=== PATIENT | male | born 1965 ===

== ENCOUNTER 2020-09-30 09:09 | Outpatient (REF) | payer OTHER, SELFPAY ==
--- NOTE | ~2020-09-30 | XR_ITS ---
EXAMINATION: XR LUMBOSACRAL SPINE CLINICAL INFORMATION: Low back pain COMPARISON: Previous x-ray March 2014 TECHNIQUE: Three views of the lumbosacral spine. FINDINGS: There are postsurgical changes at L5-S1 with interbody fusion at L5-S1 with fusion cage and 2 posterior screws in S1. Surgical hardware appears unchanged from March 2014. Bone alignment is normal. No fracture or dislocation is seen. There is mild degenerative spondylosis and disc space narrowing at L4-L5 and L2-L3. There is lower lumbar spine facet arthritis. XR/XR lumbar spine 2-3V IMPRESSION: Stable postsurgical change at L5-S1. Mild degenerative changes.
== END 2020-09-30 09:10 | disposition home or self-care (01) ==
LOC: HO.HMGCX 09:09
PROVIDERS: PCP Nurse Practitioner Family; Visit Provider Nurse Practitioner Family
DX: M54.5 Low back pain (principal)
CPT/HCPCS: 72100

== ENCOUNTER 2020-11-04 09:20 | Outpatient (REF) | payer OTHER, SELFPAY ==
[2020-11-04 12:02] LABS: Alanine Aminotransferase 26 U/L (0-40); Albumin Level 4.2 g/dL (3.5-5.0); Alkaline Phosphatase 90 U/L (39-117); Anion Gap 10 (12-20); Aspartate Amino Transferase 25 U/L (5-37); Bilirubin Total 0.2 mg/dL (0.0-1.0); Blood Urea Nitrogen 26 mg/dL (9-16); Calcium 8.8 mg/dL (8.4-10.2); Carbon Dioxide 26 mmol/L (22-29); Chloride 107 mmol/L (96-108); Cholesterol 191 mg/dL; Estimated Glomerular Filt Rate > 60; Glucose Fasting 121 mg/dL (60-99); HDL Cholesterol 47 mg/dL; LDL Cholesterol Calculated 114 mg/dl; Potassium 4.8 mmol/L (3.3-5.1); Sodium 138 mmol/L (135-145); Total Protein 6.8 g/dL (6.5-8.0); Triglycerides 151 mg/dL
[2020-11-04 12:06] LABS: Prostate Specific Antigen Scr 0.79 ng/mL (<0.05-4.0); TSH reflex Free T4 0.82 uIU/mL (0.32-4.0)
== END 2020-11-04 09:21 | disposition home or self-care (01) ==
LOC: HO.HMGCLDS 09:20
PROVIDERS: PCP Nurse Practitioner Family; Visit Provider Nurse Practitioner Family
DX: Z12.5 Encounter for screening for malignant neoplasm of prostate (principal); Z00.00 Encounter for general adult medical examination without abnormal findings
CPT/HCPCS: 36415; 80053; 80061; 84153; 84443

== ENCOUNTER 2020-12-17 08:38 | Outpatient (REF) | payer OTHER, SELFPAY ==
--- NOTE | ~2020-12-17 | XR_ITS ---
EXAMINATION: XR HIP, LEFT CLINICAL INFORMATION: Left hip pain. COMPARISON: None TECHNIQUE: Two views of the left hip. FINDINGS: There is no evidence of acute fracture or dislocation of the left hip. Left hip joint space is maintained without significant spurring identified. There is a region of diminished density present with question surrounding sclerotic region versus overlap of the acetabular bone which may be related to subchondral cyst formation. No femoral head collapse is identified. Early AVN not excluded. XR/XR hip LT min 2V IMPRESSION: No acute fracture or significant joint space narrowing appreciated. Findings of the femoral head which could be related to subchondral cyst formation or possible early AVN with no femoral head collapse identified.
== END 2020-12-17 08:39 | disposition home or self-care (01) ==
LOC: HO.XRAY 08:38
PROVIDERS: PCP Nurse Practitioner Family; Visit Provider Nurse Practitioner Family
DX: M25.552 Pain in left hip (principal)
CPT/HCPCS: 73502

== ENCOUNTER → 2021-01-04 13:05 | Outpatient (BNVA) | payer OTHER, SELFPAY | PROVIDERS: PCP Nurse Practitioner Family; Visit Provider Orthopaedic Surgery | DX: M87.052 Idiopathic aseptic necrosis of left femur (principal) | CPT/HCPCS: 99202 ==

== ENCOUNTER 2021-01-27 13:31 | Outpatient (REF) | payer OTHER, SELFPAY ==
--- NOTE | ~2021-01-27 | FL_ITS ---
EXAMINATION: FL ARTHROGRAM HIP, LEFT CLINICAL INFORMATION: Left hip pain. Pre-MRI. COMPARISON: Previous x-ray 12/17/2020. TECHNIQUE/FINDINGS: Procedure, risks and benefits including bleeding and infection were discussed with the patient and informed consent was obtained. The left hip was prepped and draped in the usual sterile fashion. The skin and soft tissues were anesthetized with 1% lidocaine plain. Using fluoroscopy guidance and a 22-gauge spinal needle, access to the left hip joint was obtained. 1 to 2 mL of Omnipaque 300 was injected fluoroscopically confirming adequate placement in the joint space. Subsequently, a mixture of dilute gadolinium, saline and lidocaine was injected pre-MRI. FLUOROSCOPY TIME: 0.4 minutes DOSE AREA PRODUCT: 2.8 mGy-cm2 IMAGES SAVED: 3 saved fluoroscopic images FL/FL arthrogram hip LT IMPRESSION: Left hip pre-MRI arthrogram.
--- NOTE | ~2021-01-27 | MR_ITS ---
EXAMINATION: MR HIP WITH CONTRAST, LEFT CLINICAL INFORMATION: Left hip pain. Avascular necrosis. Evaluate for labrum tear. COMPARISON: Radiographs of the hip from 12/17/2020. TECHNIQUE: MRI of the left hip was performed after the intra-articular administration of a dilute gadolinium-containing solution on a high-field 1.5 Evelin scanner. FINDINGS: BONES/JOINTS: The acetabulum, which has normal depth and orientation, provides normal femoral head coverage. The center-edge angle of [place] is 37 degrees (normal 20 - 45 degrees). At the level of the acetabular roof, acetabular anteversion angle measures 8 degrees, and at the level of the center of the femoral head, acetabular anteversion is 17 degrees. No acetabular retroversion. The femoral head and neck have normal shape (i.e., no cam type morphology). The alpha angle is 45 degrees (normal typically < 60 degrees). Minimal osteophyte formation of the hip. Minimal subchondral cystlike signal change and subtle subchondral edema of the superolateral acetabulum. Irregular thinning of articular cartilage of the anterosuperomedial aspect of the femoral head. There is T2 signal hyperintensity from likely fibrovascular tissue and subchondral cystic change in the anterosuperomedial femoral head, in the area of osteonecrosis, which is demarcated by a hypointense line. The area of osteonecrosis measures up to 2.2 cm AP and 2 cm transverse. No fragmentation or collapse of the articular surface. No intra-articular osteochondral body. ACETABULAR LABRUM and CAPSULE: The acetabular labrum has normal size, morphology and signal. The ligamentum teres femoris is intact. The capsular structures are unremarkable. No pericapsular fluid collection or ganglion cyst. MUSCLES/TENDONS: The gluteus minimus and medius tendons have intact insertions on the greater trochanter. No trochanteric bursitis. The distal iliopsoas and proximal hamstring tendons are intact. The visualized muscles of the thigh have normal signal intensity. No soft tissue mass. INTRAPELVIC AND NEUROVASCULAR STRUCTURES: The left pelvic structures are partially included in the [id number]. No pelvic free fluid. No lymphadenopathy. The fat planes are well preserved along the visualized course of the left sciatic nerve. MR/MR hip LT w con IMPRESSION: * No evidence of acetabular labral tear. * Mild osteoarthritis of the left hip. 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
[2021-01-27] MEDS: Lidocaine HCl 1 % 20 ML VIAL 50 ML SUBCUT (14:41)
== END 2021-01-27 13:32 | disposition home or self-care (01) ==
LOC: HO.XRAY 13:31
PROVIDERS: PCP Nurse Practitioner Family; Visit Provider Orthopaedic Surgery
DX: M87.052 Idiopathic aseptic necrosis of left femur (principal); M25.552 Pain in left hip
CPT/HCPCS: 27093; 73525; 73722; A9585

== ENCOUNTER 2021-02-26 09:00 | Outpatient (RCR) | payer OTHER, SELFPAY ==
--- NOTE | 2021-01-20 13:02 | MHC.PT.EP ---
[facility] [place] Office [place] Office [place] Office [address] Nayely Avila [address] [phone] F: [phone] F: [phone] F: [phone] F: [phone] Physical Therapy Plan of Care Date of Evaluation: Date of Surgery: n/a Diagnosis: Pain in L hip Assessment: Pt is a 55/yo M referred to PT for eval/treat of his L hip pain. Signs and symptoms is consistent w/ hip dysfunction resulting in decreased ability/tolerance w/ activities that involves moderate to significant hip motion, decreased ability to perform ADLs such as dressing and putting shoes and socks, decreased ability to perform squats, ambulation, and sitting for duration. Functional limitation mentioned above are secondary to decreased L hip abd/ext strength, restriction to L hip ROM, (+) joana test, (+) LLD. Pt is deemed appropriate to receive skilled PT to address his physical impairments and improve functional abilities. Frequency and Duration: The patient will be seen 2x/wk for 5 wk Short Term Goals: Initiate HEP w/ evidence of compliance pt will be able to put on shoes and socks w/ little to no difficulty pt will sidra sitting for at least 30 mins w/ little to no difficulty [facility]cf Goals: I w/ HEP pt will be able to ambulate for over an hour w/o difficulty pt will be able to stand for duration w/o difficulty pt will improve his LEFI score by 2 increment of MDC and MCID; initial Treatment Plan: Modalities to reduce pain, spasms and effusion. Manual therapy to restore motion and function. Therapeutic exercise to improve strength and flexibility. Neuromuscular re-education for posture and balance. Therapeutic activities to return to functional activities of daily living. Electronically signed by: Filipe Bueno PT Please sign and return to therapist. Thank you for your referral.
--- NOTE | 2021-02-26 17:51 | MHC.PT.DC ---
[facility] [place] Office [place] Office [place] Office [address] Nayely Avila 140 [facility] [phone] F: [phone] F: [phone] F: [phone] F: [phone] Physical Therapy Discharge Report Diagnosis: Pain in L hip Date of Surgery: n/a Date of Evaluation: 01/20/21 Date of Discharge: Treatments to Date: 8 Cancellations to Date: 0 No Shows to Date: 0 Discharge Status: Discharge Summary: Misael has been an active participant in his therapy he has become I with his HEP though he has not progressed much with his goals and a f/u with his MD is appropriate. LEFI score improved from 51/80 to 56/80 which is not a meaningful improvement. Electronically signed by: Filipe Bueno PT Please sign and return to therapist. Thank you for your referral.
--- NOTE | 2021-02-26 17:53 | MHC.PT.DC ---
[facility] [place] Office [place] Office [place] Office [address] Av[address] [phone] F: [phone] F: [phone] F: [phone] F: [phone] Physical Therapy Discharge Report Diagnosis: Pain in L hip Date of Surgery: n/a Date of Evaluation: 01/20/21 Date of Discharge: Treatments to Date: 8 Cancellations to Date: 0 No Shows to Date: 0 Discharge Status: Independent with HEP Recommend MD Follow-up Discharge Summary: Misael has been an active participant in his therapy he has become I with his HEP though he has not progressed much with his goals and a f/u with his MD is appropriate. LEFI score improved from 51/80 to 56/80 which is not a meaningful improvement. Electronically signed by: Filipe Bueno PT Please sign and return to therapist. Thank you for your referral.
== END 2021-02-26 17:51 | disposition home or self-care (01) ==
LOC: HO.PTCHIC 09:00
PROVIDERS: PCP Nurse Practitioner Family; Visit Provider Nurse Practitioner Family
DX: M25.552 Pain in left hip (principal)
CPT/HCPCS: 97110; 97140; 97161

== ENCOUNTER → 2021-03-08 14:36 | Outpatient (BNVA) | payer OTHER, SELFPAY | PROVIDERS: Visit Provider Orthopaedic Surgery | DX: M87.052 Idiopathic aseptic necrosis of left femur (principal) | CPT/HCPCS: 99212 ==

== ENCOUNTER 2021-04-30 13:51 | Outpatient (REF) | payer OTHER, SELFPAY ==
[2021-04-30 15:22] LABS: COVID-19 Test Negative (Negative); IDNOW Serial# 16C4AD1C
== END 2021-04-30 13:52 | disposition home or self-care (01) ==
LOC: HO.LAB 13:51
PROVIDERS: Visit Provider Internal Medicine
DX: Z20.822 Contact with and (suspected) exposure to COVID-19 (principal)
CPT/HCPCS: 36415; 87635; C9803

== ENCOUNTER 2021-05-17 09:07 | Outpatient (REF) | payer OTHER, SELFPAY | END 2021-05-17 09:08 | disposition home or self-care (01) | LOC: HO.HMGCLDS 09:07 | PROVIDERS: Visit Provider Internal Medicine | DX: Z20.822 Contact with and (suspected) exposure to COVID-19 (principal) | CPT/HCPCS: C9803; U0003; U0005 ==

== ENCOUNTER 2021-06-17 12:14 | Outpatient (REF) | payer OTHER, SELFPAY ==
--- NOTE | ~2021-06-17 | XR_ITS ---
EXAMINATION: XR PELVIS CLINICAL INFORMATION: Pain COMPARISON: None TECHNIQUE: AP view of the pelvis. FINDINGS: No fractures. Femoral heads are spherical. Small acetabular marginal osteophytes. Small femoral collar osteophytes of the left. Sacroiliac joints and symphysis pubis unremarkable. Normal EKG redemonstrated L5-S1 with cannulated screws bilaterally at S1. Soft tissues unremarkable. XR/XR pelvis 1-2V IMPRESSION: No acute findings. Mild bilateral hip arthrosis.
== END 2021-06-17 12:15 | disposition home or self-care (01) ==
LOC: HO.HOSX 12:14
PROVIDERS: Visit Provider Orthopaedic Surgery
DX: M87.052 Idiopathic aseptic necrosis of left femur (principal); M25.552 Pain in left hip; M54.12 Radiculopathy, cervical region; F17.210 Nicotine dependence, cigarettes, uncomplicated; Z91.013 Allergy to seafood
CPT/HCPCS: 72170; 99212

== ENCOUNTER 2021-08-11 14:18 | Outpatient (REF) | payer OTHER, SELFPAY ==
[2021-08-11 16:47] LABS: MANUAL DIFF FLAG NO
[2021-08-11 16:50] LABS: Basophils Percent Auto 0.3 % (0-2); Eosinophils Absolute Auto 0.4 X10*3/uL (0.0-0.4); Eosinophils Percent Auto 4.7 % (0-4); Hematocrit 48.1 % (42.0-52.0); Hemoglobin 15.8 g/dl (14.0-18.0); Imm Gran Abs Auto 0.03 X10*3/uL (0.00-0.03); Imm Gran Pct Auto 0.4 % (0.0-0.4); Lymphocytes Absolute Auto 1.3 X10*3/uL (1.2-4.9); Lymphocytes Percent Auto 17.4 % (20-40); Mean Corpuscular HGB Conc 32.8 g/dl (31.0-36.0); Mean Corpuscular Hemoglobin 29.9 pg (27.0-33.0); Mean Corpuscular Volume 90.9 fL (80.0-98.0); Mean Platelet Volume 9.3 fL (9.4-12.4); Monocytes Absolute Auto 0.9 X10*3/uL (0.1-1.2); Monocytes Percent Auto 12.6 % (2-11); Neutrophils Absolute Auto 4.8 x10*3/uL (2.0-8.3); Neutrophils Percent Auto 64.6 % (45-73); Platelet Count 285 X10*3/uL (160-400); Red Blood Count 5.29 X10*6/uL (4.60-5.80); Red Cell Distribution Width 13.1 % (11.0-16.0); White Blood Count 7.5 X10*3/uL (4.8-10.8)
[2021-08-11 17:29] LABS: Alanine Aminotransferase 31 U/L (0-40); Albumin Level 4.5 g/dL (3.5-5.0); Alkaline Phosphatase 94 U/L (39-117); Anion Gap 13 (12-20); Aspartate Amino Transferase 26 U/L (5-37); Bilirubin Total 0.6 mg/dL (0.0-1.0); Blood Urea Nitrogen 21 mg/dL (9-16); Carbon Dioxide 29 mmol/L (22-29); Chloride 101 mmol/L (96-108); Estimated Glomerular Filt Rate 57; Glucose Random 93 mg/dL (60-115); Potassium 5.3 mmol/L (3.3-5.1); Sodium 138 mmol/L (135-145); Total Protein 7.6 g/dL (6.5-8.0)
[2021-08-13 00:13] LABS: Follicle Stimulating Hormone 8.6 mIU/mL (1.6-8.0); Lutenizing Hormone 11.6 mIU/mL (1.5-9.3)
[2021-08-16 16:31] LABS: Testosterone, Total 736 ng/dL (250-1100)
== END 2021-08-11 14:19 | disposition home or self-care (01) ==
LOC: HO.HMGCLDS 14:18
PROVIDERS: PCP Nurse Practitioner Family; Visit Provider Nurse Practitioner Family
DX: N52.9 Male erectile dysfunction, unspecified (principal)
CPT/HCPCS: 36415; 80053; 83001; 83002; 84402; 84403; 85025

== ENCOUNTER 2021-09-07 08:28 | Outpatient (REF) | payer OTHER, SELFPAY ==
[2021-09-07 12:13] LABS: Anion Gap 10 (12-20); Carbon Dioxide 29 mmol/L (22-29); Chloride 107 mmol/L (96-108); Potassium 4.9 mmol/L (3.3-5.1); Sodium 141 mmol/L (135-145)
== END 2021-09-07 08:29 | disposition home or self-care (01) ==
LOC: HO.HMGCLDS 08:28
PROVIDERS: PCP Nurse Practitioner Family; Visit Provider Nurse Practitioner Family
DX: E87.5 Hyperkalemia (principal)
CPT/HCPCS: 36415; 80051

== ENCOUNTER 2021-12-21 10:29 | Outpatient (REF) | payer OTHER, SELFPAY ==
[2021-12-21 11:24] LABS: MANUAL DIFF FLAG NO
[2021-12-21 11:31] LABS: Basophils Percent Auto 0.4 % (0-2); Eosinophils Absolute Auto 0.2 X10*3/uL (0.0-0.4); Eosinophils Percent Auto 2.2 % (0-4); Hematocrit 44.4 % (42.0-52.0); Hemoglobin 14.6 g/dl (14.0-18.0); Imm Gran Abs Auto 0.04 X10*3/uL (0.00-0.03); Imm Gran Pct Auto 0.6 % (0.0-0.4); Lymphocytes Absolute Auto 1.8 X10*3/uL (1.2-4.9); Lymphocytes Percent Auto 25.5 % (20-40); Mean Corpuscular HGB Conc 32.9 g/dl (31.0-36.0); Mean Corpuscular Hemoglobin 28.3 pg (27.0-33.0); Mean Corpuscular Volume 86.2 fL (80.0-98.0); Mean Platelet Volume 9.1 fL (9.4-12.4); Monocytes Absolute Auto 0.7 X10*3/uL (0.1-1.2); Monocytes Percent Auto 9.7 % (2-11); Neutrophils Absolute Auto 4.4 x10*3/uL (2.0-8.3); Neutrophils Percent Auto 61.6 % (45-73); Platelet Count 246 X10*3/uL (160-400); Red Blood Count 5.15 X10*6/uL (4.60-5.80); Red Cell Distribution Width 13.1 % (11.0-16.0); White Blood Count 7.2 X10*3/uL (4.8-10.8)
[2021-12-21 12:02] LABS: Alanine Aminotransferase 37 U/L (0-40); Albumin Level 4.4 g/dL (3.5-5.0); Alkaline Phosphatase 72 U/L (39-117); Anion Gap 14 (12-20); Aspartate Amino Transferase 26 U/L (5-37); Bilirubin Total 0.6 mg/dL (0.0-1.0); Blood Urea Nitrogen 23 mg/dL (9-16); Calcium 9.6 mg/dL (8.4-10.2); Carbon Dioxide 28 mmol/L (22-29); Chloride 103 mmol/L (96-108); Estimated Glomerular Filt Rate > 60; Glucose Random 141 mg/dL (60-115); Potassium 4.8 mmol/L (3.3-5.1); Sodium 140 mmol/L (135-145); Total Protein 7.2 g/dL (6.5-8.0)
[2021-12-21 12:22] LABS: Prostate Specific Antigen Scr 1.04 ng/mL (<0.05-4.0); TSH reflex Free T4 0.58 uIU/mL (0.32-4.0)
[2021-12-21 13:51] LABS: Appearance Urine CLOUDY; Color Urine YELLOW; Glucose Urine UA NEG (NEG); Leukocyte Esterase Urine NEG (NEG); Nitrite Urine NEG (NEG); Specific Gravity - Urine >= 1.030 (1.005-1.025); Urine Blood NEG (NEG); Urine Ketones NEG (NEG); Urine Protein NEG (NEG-TRACE)
== END 2021-12-21 10:30 | disposition home or self-care (01) ==
LOC: HO.HMGCLDS 10:29
PROVIDERS: PCP Nurse Practitioner Family; Visit Provider Nurse Practitioner Family
DX: Z12.5 Encounter for screening for malignant neoplasm of prostate (principal); R10.2 Pelvic and perineal pain
CPT/HCPCS: 36415; 80053; 81003; 84153; 84443; 85025

== ENCOUNTER 2022-02-09 15:19 | Outpatient (REF) | payer OTHER, SELFPAY ==
--- NOTE | ~2022-02-09 | US_ITS ---
EXAMINATION: US PELVIS LIMITED (BLADDER) CLINICAL INFORMATION: Pelvic and perineal pain. COMPARISON: CT abdomen and pelvis 12/11/2014. TECHNIQUE: Real-time imaging of the bladder. FINDINGS: BLADDER: Well distended and normal. Bilateral ureteral jets are demonstrated. Prevoid bladder volume is 254 mL. Postvoid bladder volume is 4.1 mL. ADDITIONAL FINDINGS: The prostate gland is normal in size and measures 3.2 x 3.3 x 3.1 cm, volume 17 mL. US/US bladder IMPRESSION: Normal bladder ultrasound..
== END 2022-02-09 15:20 | disposition home or self-care (01) ==
LOC: HO.US 15:19
PROVIDERS: Visit Provider Nurse Practitioner Family
DX: R10.2 Pelvic and perineal pain (principal)
CPT/HCPCS: 76857

== ENCOUNTER → 2022-06-03 12:50 | Outpatient (BNVA) | payer OTHER, SELFPAY | PROVIDERS: PCP Nurse Practitioner Family; Visit Provider Nurse Practitioner Family | DX: R10.2 Pelvic and perineal pain (principal) | CPT/HCPCS: 99202 ==

== ENCOUNTER 2022-07-09 14:48 | Outpatient (REF) | payer OTHER, SELFPAY ==
--- NOTE | ~2022-07-09 | XR_ITS ---
EXAMINATION: XR FOOT, LEFT CLINICAL INFORMATION: Pain COMPARISON: None TECHNIQUE: AP, lateral, and oblique views of the left foot. FINDINGS: The bones and soft tissues are normal. No fracture. Alignment is anatomic. Joint spaces are maintained. XR/XR foot LT min 3V IMPRESSION: No fracture or dislocation.
== END 2022-07-09 14:49 | disposition home or self-care (01) ==
LOC: HO.HMGCX 14:48
PROVIDERS: PCP Nurse Practitioner Family; Visit Provider Physician Assistant Medical
DX: M79.672 Pain in left foot (principal)
CPT/HCPCS: 73630

== ENCOUNTER 2022-07-15 14:35 | Outpatient (REF) | payer OTHER, SELFPAY ==
--- NOTE | ~2022-07-15 | US_ITS ---
EXAMINATION: US RETROPERITONEAL LIMITED (RENAL ONLY) CLINICAL INFORMATION: Pelvic and perineal pain. COMPARISON: Ultrasound bladder 02/09/2022. CT abdomen and pelvis 12/11/2014. TECHNIQUE: Real-time imaging of the kidneys. FINDINGS: RIGHT KIDNEY: 10.7 x 5.0 x 5.3 cm (SAG x AP x TRV). The kidney is normal in size, contour, and echogenicity. Renal cortical thickness is normal. No renal calculi or focal parenchymal lesions. Fullness of the right renal pelvis unclear if this could reflect mild hydronephrosis versus peripelvic renal cysts. 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 LEFT KIDNEY: 11.0 x 6.0 x 4.9 cm (SAG x AP x TRV). The kidney is normal in size, contour, and echogenicity. Renal cortical thickness is normal. No calculi or focal parenchymal lesions. No hydronephrosis. US/US retroperitoneal limited IMPRESSION: Fullness of the right renal pelvis unclear if this could reflect mild hydronephrosis versus peripelvic renal cysts. CT urogram could be confirmatory if warranted clinically. 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
== END 2022-07-15 14:36 | disposition home or self-care (01) ==
LOC: HO.US 14:35
PROVIDERS: PCP Nurse Practitioner Family; Visit Provider Nurse Practitioner Family
DX: R10.2 Pelvic and perineal pain (principal)
CPT/HCPCS: 76775

== ENCOUNTER → 2022-08-10 10:27 | Outpatient (BNVA) | payer OTHER, SELFPAY | PROVIDERS: PCP Nurse Practitioner Family; Visit Provider Nurse Practitioner Family | DX: N13.30 Unspecified hydronephrosis (principal); R10.2 Pelvic and perineal pain | CPT/HCPCS: 99212 ==

== ENCOUNTER → 2022-09-08 12:53 | Outpatient (REF) | payer OTHER, SELFPAY ==
--- NOTE | ~2022-09-08 | NM_ITS ---
EXAMINATION: RENAL DYNAMIC IMAGING STUDY WITH LASIX CLINICAL INFORMATION: Unspecified hydronephrosis. Bilateral flank pain left greater than right. COMPARISON: No previous radionuclide renal scan is available for comparison. Renal ultrasound dated 07/15/2022 is available for comparison. TECHNIQUE: Serial gamma scintillation camera images were obtained over the posterior trunk during the initial transit and subsequent distribution of a bolus intravenous injection of 10 mCi of Tc-99m DTPA. At 30 minutes later, 40 mg of Lasix was administered intravenously and an additional 30 minutes of images obtained. FINDINGS: Initial rapid sequence images show prompt and normal-appearing flow to the left kidney but there is moderately diminished flow to the right kidney. Subsequent sequential static images obtained up to 30 minutes show good concentration in the left kidney but there is moderately diminished concentration in the right kidney. The right kidney is slightly smaller in size than the left. There is evidence of excretory function bilaterally by 3 minutes post injection. Urinary bladder is well-visualized by 5 minutes post injection. Throughout the initial 30 minutes there is a rounded photopenic peripelvic void separate from the right renal pelvis and calyces that shows no accumulation of excretory activity. At 30 minutes postinjection there is good visualization of activity in the urinary bladder and only minimal retention in both renal collecting systems, slightly more prominently on the right but still minimal. Following Lasix administration, there is continued washout from both renal collecting systems. At the end of the study, a full urinary bladder is visualized and there is no retention in either renal collecting system. The T-1/2 washout times following Lasix administration are: Left 6.5 minutes and right 4.2 minutes. The relative function of the two kidneys based on the 2-3 minute images are: Left 70% and right 30%. NM/NM renal flow w pharm int IMPRESSION: LEFT KIDNEY: Normal perfusion and function. No hydronephrosis or outflow obstruction. RIGHT KIDNEY: Moderately diminished perfusion and function. This kidney is slightly smaller than the left, but this difference in size does not likely account for the difference in relative function, compared to the left, as quantitated above. There is no hydronephrosis or outflow obstruction. A discrete photopenic void persists throughout the study and may correspond to the fullness noted on the 07/15/2022 ultrasound. The finding would be consistent with a peripelvic cyst, but a mass at this site cannot be excluded. Further characterization of this with a CT urogram is recommended.
== END ==
LOC: HO.NUCMED 12:53
PROVIDERS: PCP Nurse Practitioner Family; Visit Provider Nurse Practitioner Family
DX: N13.30 Unspecified hydronephrosis (principal)
CPT/HCPCS: 78708; A9539; J1940

== ENCOUNTER → 2022-09-27 08:43 | Outpatient (BNVA) | payer OTHER, SELFPAY | PROVIDERS: PCP Nurse Practitioner Family; Visit Provider Nurse Practitioner Family | DX: N13.30 Unspecified hydronephrosis (principal); R10.2 Pelvic and perineal pain | CPT/HCPCS: 99212 ==

== ENCOUNTER 2022-10-19 14:08 | Outpatient (REF) | payer OTHER, SELFPAY ==
--- NOTE | ~2022-10-19 | CT_ITS ---
EXAMINATION: CT ABDOMEN AND PELVIS WITHOUT AND WITH CONTRAST CLINICAL INFORMATION: Unspecified hydronephrosis COMPARISON: Previous renal ultrasound July 2022 and nuclear medicine renal scan August 2022 TECHNIQUE: Noncontrast CT of the abdomen and pelvis is performed followed by split bolus contrast-enhanced images using 85 mL Omnipaque 350 contrast.? Postcontrast imaging is performed during the combined nephrogram and excretion phase. Sagittal and coronal reformatted images were obtained on the technologist's workstation for both the precontrast and postcontrast phases. This CT examination was performed using dose optimization techniques as appropriate, variously including the following: *Automated exposure control *Adjustment of mA and/or kV according to patient size (this includes techniques or standardized protocols for targeted exams where dose is matched to indication/reason for exam; i.e. extremities or head) *Use of iterative reconstruction technique DLP: 636 mGy-cm FINDINGS: LUNG BASES: The visualized lung bases are unremarkable. LIVER, GALLBLADDER, AND BILIARY TREE: The liver is normal in size, and shape. Mild fatty infiltration. No focal hepatic lesion or biliary ductal dilatation is present. The gallbladder is unremarkable with no evidence of radiopaque gallstones, gallbladder wall thickening, or obvious pericholecystic inflammatory changes. PANCREAS: Unremarkable. SPLEEN: Unremarkable. ADRENAL GLANDS: Unremarkable. KIDNEYS AND URETERS: Right kidney: There is abnormal rotation of the right kidney with anterior orientation of the renal pelvis. 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 There is mild fullness of the lower renal pelvis. No definite hydronephrosis is seen. The collecting system is otherwise normal. There is a single right ureter that is normal. No renal mass or peripelvic cyst seen. No stone. The left kidney and ureter are normal. BLADDER: Unremarkable. GASTROINTESTINAL TRACT: The small and large bowel are unremarkable. The appendix is unremarkable. ABDOMINAL WALL: Small umbilical and supraumbilical or ventral midline hernias containing fat. LYMPH NODES: Normal. VASCULAR: Unremarkable. PELVIC VISCERA: Unremarkable. OSSEUS STRUCTURES: Postsurgical changes at L5-S1. Degenerative changes of the spine. CT/CT urogram IMPRESSION: No hydronephrosis. Abnormal rotation of the right kidney with anterior orientation of the renal pelvis. Bifid right renal collecting system with mild fullness of the lower renal pelvis. No definite hydronephrosis. Mild fatty infiltration of the liver.
[2022-10-19] MEDS: iohexoL 350 MG/ML 100 ML INFUS..BTL 85 ML IV (14:50)
[2022-10-20 06:28] LABS: Creatinine POC 0.7 mg/dL (0.5-1.4); GFR POC > 60
== END 2022-10-19 14:09 | disposition home or self-care (01) ==
LOC: HO.CT 14:08
PROVIDERS: PCP Nurse Practitioner Family; Visit Provider Nurse Practitioner Family
DX: N13.30 Unspecified hydronephrosis (principal)
CPT/HCPCS: 74178; 82565; Q9967

== ENCOUNTER 2022-10-25 08:18 | Outpatient (REF) | payer OTHER, SELFPAY ==
[2022-10-25 08:32] LABS: MANUAL DIFF FLAG NO
[2022-10-25 08:57] LABS: Basophils Percent Auto 0.6 % (0-2); Eosinophils Absolute Auto 0.3 X10*3/uL (0.0-0.4); Eosinophils Percent Auto 5.4 % (0-4); Hematocrit 47.6 % (42.0-52.0); Hemoglobin 15.2 g/dl (14.0-18.0); Imm Gran Abs Auto 0.04 X10*3/uL (0.00-0.03); Imm Gran Pct Auto 0.6 % (0.0-0.4); Lymphocytes Absolute Auto 1.8 X10*3/uL (1.2-4.9); Lymphocytes Percent Auto 29.1 % (20-40); Mean Corpuscular HGB Conc 31.9 g/dl (31.0-36.0); Mean Corpuscular Hemoglobin 28.4 pg (27.0-33.0); Mean Platelet Volume 9.3 fL (9.4-12.4); Monocytes Absolute Auto 0.8 X10*3/uL (0.1-1.2); Monocytes Percent Auto 13.1 % (2-11); Neutrophils Absolute Auto 3.2 x10*3/uL (2.0-8.3); Neutrophils Percent Auto 51.2 % (45-73); Platelet Count 263 X10*3/uL (160-400); Red Blood Count 5.35 X10*6/uL (4.60-5.80); Red Cell Distribution Width 13.1 % (11.0-16.0); White Blood Count 6.3 X10*3/uL (4.8-10.8)
[2022-10-25 09:02] LABS: Appearance Urine Clear; Color Urine Yellow; Glucose Urine UA Negative (Negative); Leukocyte Esterase Urine Negative (Negative); Nitrite Urine Negative (Negative); Urine Blood Negative (Negative); Urine Ketones Negative (Negative); Urine Protein Negative (Neg-Trace)
[2022-10-25 09:31] LABS: Alanine Aminotransferase 30 U/L (0-40); Albumin Level 4.2 g/dL (3.5-5.0); Alkaline Phosphatase 84 U/L (39-117); Anion Gap 13 (12-20); Aspartate Amino Transferase 25 U/L (5-37); Bilirubin Total 0.7 mg/dL (0.0-1.0); Blood Urea Nitrogen 17 mg/dL (9-16); Carbon Dioxide 30 mmol/L (22-29); Chloride 106 mmol/L (96-108); Cholesterol 194 mg/dL; Estimated Glomerular Filt Rate > 60; Glucose Fasting 108 mg/dL (60-99); HDL Cholesterol 53 mg/dL; LDL Cholesterol Calculated 116 mg/dl; Potassium 5.2 mmol/L (3.3-5.1); Sodium 144 mmol/L (135-145); Total Protein 7.4 g/dL (6.5-8.0); Triglycerides 129 mg/dL
[2022-10-25 09:46] LABS: TSH reflex Free T4 1.68 uIU/mL (0.32-4.0)
== END 2022-10-25 08:19 | disposition home or self-care (01) ==
LOC: HO.LAB 08:18
PROVIDERS: PCP Nurse Practitioner Family; Visit Provider Nurse Practitioner Family
DX: Z00.00 Encounter for general adult medical examination without abnormal findings (principal)
CPT/HCPCS: 36415; 80053; 80061; 81003; 84443; 85025

== ENCOUNTER → 2022-10-28 10:23 | Outpatient (BNVA) | payer OTHER, SELFPAY | PROVIDERS: PCP Nurse Practitioner Family; Visit Provider Nurse Practitioner Family | DX: N13.30 Unspecified hydronephrosis (principal); Q63.8 Other specified congenital malformations of kidney | CPT/HCPCS: 99212 ==

== ENCOUNTER 2022-11-07 08:10 | Outpatient (REF) | payer OTHER, SELFPAY ==
[2022-11-07 12:16] LABS: Prostate Specific Antigen Scr 1.12 ng/mL (<0.05-4.0)
[2022-11-07 12:37] LABS: Anion Gap 11 (12-20); Blood Urea Nitrogen 19 mg/dL (9-16); Carbon Dioxide 28 mmol/L (22-29); Chloride 106 mmol/L (96-108); Estimated Glomerular Filt Rate > 60; Potassium 4.8 mmol/L (3.3-5.1); Sodium 140 mmol/L (135-145)
== END 2022-11-07 08:11 | disposition home or self-care (01) ==
LOC: HO.HMGCLDS 08:10
PROVIDERS: Nurse Practitioner Family; PCP Nurse Practitioner Family; Visit Provider Nurse Practitioner Family
DX: Z12.5 Encounter for screening for malignant neoplasm of prostate (principal); R39.15 Urgency of urination; E87.5 Hyperkalemia
CPT/HCPCS: 36415; 80051; 82565; 84153; 84520

== ENCOUNTER 2023-01-19 09:26 | Outpatient (AMB) | payer OTHER, SELFPAY ==
--- NOTE | 2023-01-19 11:17 | MHC.OFFWIV ---
Intake Vital Signs 01/19/23 11:20 Height 5 ft 5 in Weight 179 lb BMI 29.8 BP 120/80 Blood Pressure Location Rt brachial Position Sitting Pulse 100 Pulse Source Pulse Oximeter Pulse Oximetry (%) 99 Oxygen Delivery Method Room Air Intake Visit Reasons: EP, Low back and hip pain([phone]) Intake Note: Patient here for low back and hip pain. he states he was working out (leg presses) and might have went to far back and maybe something got pinched. He states it has been bothersome for about 3 weeks but the last day or so it has worsened. Patient Tobacco Use Status: Former Tobacco user Quit Date: quit 7 months ago Allergies shellfish derived Allergy (Unknown, Verified 01/19/23 11:22) vomiting/hives Do you need a note to return to daycare/school/sports/work: Yes HPI HPI Comments History of Present Illness Details 57-year-old male that presents for back pain. Patient states that he was lifting at the gym doing leg presses and thought he stretched for our. He endorses left-sided low back pain as well as hip pain. As it has been present for approximately 2 weeks. Does have a history of back surgery. Denies fevers chills numbness and tingling down the legs urinary symptoms PFSH Medical History Cervical radiculopathy Surgical History H/O colonoscopy History of lumbar fusion History of vasectomy S/P lumbar fusion Family History Father No problems noted. Mother Myocardial infarction CVD (cardiovascular disease) Sister Breast cancer Maternal Grandmother Myocardial infarction Maternal Grandfather No problems noted. Paternal Grandfather No problems noted. Paternal Grandmother No problems noted. Brother No problems noted. Son No problems noted. Son No problems noted. Daughter No problems noted. Daughter No problems noted. Sister No problems noted. Sister No problems noted. Sister No problems noted. Sister No problems noted. Sister No problems noted. Sister No problems noted. Sister No problems noted. Social History Housing: Apartment Alcohol intake: current Alcohol intake frequency: a few times a month Patient Tobacco Use Status: Former Tobacco user Quit Date: quit 7 months ago e-Cigarette/Vaping Use: Never Used Second Hand Smoke Exposure: No service: No Current occupational status: employed Current occupation: [employer] Current occupational exposures/hazards: No Cognitive needs: No Hearing needs: No Vision needs: No Review of Systems Const All systems reviewed & are unremarkable except as noted in HPI and below Musc Reports back pain Physical Exam Vital Signs: Last Vital Signs Pulse 100 01/19/23 11:20 BP 120/80 01/19/23 11:20 Pulse Ox 99 01/19/23 11:20 Oxygen Delivery Method Room Air 01/19/23 11:20 BMI result Body Mass Index 29.8 Const General: no acute distress and alert Back/Spine/Pelvis Other: no midline tenderness Assessment & Plan Assessment & Plan (1) Lower back pain: Code(s): M54.5 - Low back pain Plan pain should signs and symptoms most resemble lumbar sacral show strain. Will recommend symptomatic treatment with meloxicam and Flexeril. Discharge instructions, follow up and treatment are discussed with patient in my usual fashion. Alternatives in treatment are also discussed. The patient will return for worsening symptoms or as needed. Advised that any labs/imaging ordered will be followed up on and contact made if further treatment needed. Counseled that patient's condition may require further evaluation and/or treatment. Symptoms of concern for worsening disorder discussed in detail in my customary manner. Patient does verbalize understanding of the plan, there are no apparent barriers to communication. The patient is given the opportunity to ask questions and have them answered to his/her satisfaction Medications: New meloxicam 7.5 mg PO DAILY 14 tabs 0RF cyclobenzaprine 5 mg PO TID PRN 15 tabs 0RF muscle spasm Coding Level of Care Code Est Pt Level 3 (74533) Diagnoses Lower back pain M54.5
[2023-01-19 11:20] VITALS: BP 120/80; PULSE 100; O2SAT 99; BMI 29.8
== END 2023-01-19 11:50 | disposition home or self-care (01) ==
PROVIDERS: PCP Nurse Practitioner Family; Visit Provider Physician Assistant
DX: M54.50 Low back pain, unspecified (principal)
CPT/HCPCS: 99213

== ENCOUNTER 2023-02-08 10:46 | Outpatient (AMB) | payer OTHER, SELFPAY ==
--- NOTE | 2023-02-08 10:46 | A.OFFPC_ITS ---
Vital Signs 02/08/23 10:48 Height 5 ft 5 in Weight 177 lb BMI 29.5 BP 118/78 Blood Pressure Location Rt brachial Position Sitting Pulse 76 Pulse Source Pulse Oximeter Pulse Oximetry (%) 98 Oxygen Delivery Method Room Air Intake Visit Reasons: L foot swelling/pain Allergies shellfish derived Allergy (Unknown, Verified 02/08/23 10:48) vomiting/hives Medication List - Last Reconciled 02/08/23 by ESTHER Vences- albuterol sulfate 90 mcg/actuation (ProAir HFA) 2 puffs inhalation Q8H PRN buspirone 5 mg PO BID 30 days cyclobenzaprine 5 mg PO TID PRN hydrocortisone 2.5% (Anusol-HC) 1 appl NC BID-QID PRN meloxicam 7.5 mg PO DAILY sildenafil 100 mg PO DAILY PRN Tobacco use date assessed: 07/26/22 HPI L foot swelling/pain HPI Details Pt c/o left foot pain. He reports a burning sensation to the plantar aspect. Will order XR. He also has a corn to the plantar aspect of his right foot. Will refer to podiatry for both issues. Pt reports pain to his lower back radiated to his left hip and anterior lateral thigh. He reports that this is worse with bending (possible MP component???). He has a hx of lower back surgery in the . Will order XRs of left hip and lower back. Denies any signs of cauda equina. [facility] Medical History Cervical radiculopathy Surgical History H/O colonoscopy History of lumbar fusion History of vasectomy S/P lumbar fusion Family History Father No problems noted. Mother Myocardial infarction CVD (cardiovascular disease) Sister Breast cancer Maternal Grandmother Myocardial infarction Maternal Grandfather No problems noted. Paternal Grandfather No problems noted. Paternal Grandmother No problems noted. Brother No problems noted. Son No problems noted. Son No problems noted. Daughter No problems noted. Daughter No problems noted. Sister No problems noted. Sister No problems noted. Sister No problems noted. Sister No problems noted. Sister No problems noted. Sister No problems noted. Sister No problems noted. Social History Housing: Apartment Alcohol intake: current Alcohol intake frequency: a few times a month Patient Tobacco Use Status: Former Tobacco user Quit Date: quit 7 months ago e-Cigarette/Vaping Use: Never Used Second Hand Smoke Exposure: No service: No Current occupational status: employed Current occupation: [employer] Current occupational exposures/hazards: No Cognitive needs: No Hearing needs: No Vision needs: No Questionnaire Thrive Questionnaire Date Thrive assessed: 09/28/22 PIETER-7 AMB Questionnaire PIETER-7 Date PIETER - 7 assessed: 09/28/22 Source: Developed by Drs. Ned Ashraf, Renata Chris, Itz Ovalle and colleagues, with an educational pilra from [employer]. Review of Systems Const Reports as per HPI Physical exam (Primary Care) Vital Signs: Last Vital Signs Pulse 76 02/08/23 10:48 BP 118/78 02/08/23 10:48 Pulse Ox 98 02/08/23 10:48 Oxygen Delivery Method Room Air 02/08/23 10:48 BMI result Body Mass Index 29.5 Tobacco/Smoking Status: Tobacco use Status Tobacco use date assessed 07/26/22 02/08/23 10:47 Patient Tobacco Use Status Former Tobacco user 02/08/23 10:47 e-Cigarette/Vaping Use Never Used 02/08/23 10:47 Thrive Assessment: Date of Thrive Assessment Date Thrive assessed 09/28/22 02/08/23 10:47 Const General: cooperative Orientation/consciousness: patient oriented x3 Resp Effort & Inspection: normal respiratory effort Auscultation: clear to auscultation bilaterally Cardio Rate: regular rate Rhythm: regular rhythm Heart sounds: S1 normal heart sound present and S2 normal heart sound present Neuro General: patient oriented x3 Extrem Other: right foot mid plantar aspect with corn, left foot plantar aspect just inferior to 2nd toe with tenderness with palpation (burning sensation), no swelling or erythema, pain to left hip with abduction and adduction, no popping or clicking, + fabers test. able to toe walk and walk on his heels without difficulty. radicular symptoms noted with LLE raises (left lower back radiating to hip and lateral/anterior left thigh) Psych Appearance: grossly normal Mental Status: mental status grossly normal Speech and movement: Normal speech and movement present Affect: normal affect Attitude: cooperative Thought process: Normal thought process present Thought content: Normal thought content present Insight: Good insight present (Psych) Judgement: Good judgement present (Psych) Assessment and Plan Assessment & Plan (1) [place] of foot: Code(s): L84 - Corns and callosities Plan: Referred to podiatry (2) Left foot pain: Code(s): M79.672 - Pain in left foot Plan: Referred to podiatry, XR ordered (3) Left hip pain: Code(s): M25.552 - Pain in left hip Plan: XR ordered (4) Lower back pain: Code(s): M54.5 - Low back pain Plan: XR ordered Plan The patient agreed to the use of a medical malpractice paralegal for this encounter. Scribed fo ESTHER Sarmiento-BRIAN by Erin Vidal medical malpractice paralegal, on 02/08/2023 at 10:55 EST. Orders: Orders XR hip LT min 2V Today M25.552 - Pain in left hip XR lumbar spine 2-3V Today M54.5 - Low back pain Coding Level of Care Code Est Pt Level 3 (16362) Diagnoses [place] of foot L84 Left foot pain M79.672 Left hip pain M25.552 Lower back pain M54.5
[2023-02-08 10:48] VITALS: BP 118/78; PULSE 76; O2SAT 98; BMI 29.5
== END 2023-02-08 11:48 | disposition home or self-care (01) ==
LOC: HO.HMGC 10:46
PROVIDERS: PCP Nurse Practitioner Family; Visit Provider Nurse Practitioner Family
DX: L84 Corns and callosities (principal); M79.672 Pain in left foot; M25.552 Pain in left hip; M54.50 Low back pain, unspecified
CPT/HCPCS: 99213

== ENCOUNTER 2023-02-08 11:04 | Outpatient (REF) | payer OTHER, SELFPAY ==
--- NOTE | ~2023-02-08 | XR_ITS ---
EXAMINATION: XR HIP, LEFT CLINICAL INFORMATION: Pain in left hip COMPARISON: CT abdomen and pelvis from 10/19/2022 and MRI from 01/27/2021 of left TECHNIQUE: Two views of the left hip. FINDINGS: There is no evidence of fracture or joint space narrowing but there are subchondral cysts formation in the left femoral head most likely due to osteonecrosis without compression fracture. Soft tissues unremarkable. XR/XR hip LT min 2V IMPRESSION: Left femoral head osteonecrosis
--- NOTE | ~2023-02-08 | XR_ITS ---
EXAMINATION: XR FOOT, LEFT CLINICAL INFORMATION: Corns and callosities COMPARISON: None available. TECHNIQUE: AP, lateral, and oblique views of the left foot. FINDINGS: The bones and soft tissues are normal. No fracture. Alignment is anatomic. Joint spaces are maintained. XR/XR foot LT min 3V IMPRESSION: Normal left foot.
--- NOTE | ~2023-02-08 | XR_ITS ---
EXAMINATION: XR LUMBOSACRAL SPINE CLINICAL INFORMATION: Low back pain COMPARISON: CT urogram from 10/19/2022 TECHNIQUE: Three views of the lumbosacral spine. FINDINGS: Patient is status post disc space tip placement and fusion at the level of L5-S1 with stable position of hardware. The rest of vertebral bodies are well aligned and there is marginal spurring seen at the level of L4-L5 and L3 to. Pedicles are preserved. There is marginal spurring seen in the lower thoracic spine also. XR/XR lumbar spine 2-3V IMPRESSION: Postsurgical changes at the level of L5-S1. Mild degenerative spondylosis.
== END 2023-02-08 11:05 | disposition home or self-care (01) ==
LOC: HO.HMGCX 11:04
PROVIDERS: PCP Nurse Practitioner Family; Visit Provider Nurse Practitioner Family
DX: M25.552 Pain in left hip (principal); L84 Corns and callosities; M54.50 Low back pain, unspecified
CPT/HCPCS: 72100; 73502; 73630

== ENCOUNTER 2023-02-27 08:40 | Outpatient (REF) | payer OTHER, SELFPAY ==
--- NOTE | ~2023-02-27 | XR_ITS ---
EXAMINATION: XR PELVIS CLINICAL INFORMATION: Pain in unspecified hip COMPARISON: AP pelvis 07/15/2021 TECHNIQUE: AP view of the pelvis. FINDINGS: No fracture. Femoral heads are spherical. Joint spaces are within normal limits. Subchondral cystic formation is seen in the left femoral head, unchanged Alignment is anatomic. Sacroiliac joints and pubic symphysis are normal. Small calcifications the pelvis are consistent with phleboliths. Surgical hardware is seen at L5-S1. XR/XR pelvis 1-2V IMPRESSION: No acute fracture or significant joint space narrowing appreciated.
== END 2023-02-27 08:41 | disposition home or self-care (01) ==
LOC: HO.HOSX 08:40
PROVIDERS: Visit Provider Orthopaedic Surgery
DX: M54.50 Low back pain, unspecified (principal); M87.052 Idiopathic aseptic necrosis of left femur
CPT/HCPCS: 72170; 99212

== ENCOUNTER 2023-02-27 11:01 | Outpatient (AMB) | payer OTHER, SELFPAY ==
--- NOTE | 2023-02-27 11:22 | A.OFFVIS_ITS ---
Intake Intake Visit Reasons: ov- Pain in left hip Intake Note: Misael is a 57 year old male who presents today for a follow up of his left hip. He reports this pain started years ago. He has not taken anything over the counter for pain relief. He denies any injury and reports he has never tried physical therapy. Allergies shellfish derived Allergy (Unknown, Verified 02/27/23 11:30) vomiting/hives Medication List - Last Reconciled 02/27/23 by Althea Jesus RN albuterol sulfate 90 mcg/actuation (ProAir HFA) 2 puffs inhalation Q8H PRN buspirone 5 mg PO BID 30 days cyclobenzaprine 5 mg PO TID PRN hydrocortisone 2.5% (Anusol-HC) 1 appl HI BID-QID PRN meloxicam 7.5 mg PO DAILY sildenafil 100 mg PO DAILY PRN HPI ov- Pain in left hip HPI Details Misael is a 57 year old man who presents with complaints of left hip and LB pain. He complains of pain primarily in his lower back, which radiates into his hip and down his leg. He denies any groin pain, and has known left hip AVN, without collapse. He has pain with activity, which he says improves with rest. He denies any prior treatment. He denies any numbness or tingling. [facility] Medical History (Reviewed 10/29/22 @ 23:10 by Nelly Duarte, [facility]) Cervical radiculopathy Surgical History H/O colonoscopy History of lumbar fusion History of vasectomy S/P lumbar fusion Family History (Reviewed 02/08/23 @ 12:18 by Henrique Butler [facility]) Father No problems noted. Mother Myocardial infarction CVD (cardiovascular disease) Sister Breast cancer Maternal Grandmother Myocardial infarction Maternal Grandfather No problems noted. Paternal Grandfather No problems noted. Paternal Grandmother No problems noted. Brother No problems noted. Son No problems noted. Son No problems noted. Daughter No problems noted. Daughter No problems noted. Sister No problems noted. Sister No problems noted. Sister No problems noted. Sister No problems noted. Sister No problems noted. Sister No problems noted. Sister No problems noted. Social History (Reviewed 02/08/23 @ 12:18 by Henrique Butler, [facility]) Housing: Apartment Alcohol intake: current Alcohol intake frequency: a few times a month Patient Tobacco Use Status: Former Tobacco user Quit Date: quit 7 months ago e-Cigarette/Vaping Use: Never Used Second Hand Smoke Exposure: No service: No Current occupational status: employed Current occupation: [employer] Current occupational exposures/hazards: No Cognitive needs: No Hearing needs: No Vision needs: No Review of Systems Const All systems reviewed & are unremarkable except as noted in HPI and below Physical Exam Const General: no acute distress, alert and awake Orientation/consciousness: patient oriented x3 HEENT Head: Yes normocephalic and Yes atraumatic Eyes EOM: EOMs intact bilaterally Resp Effort & Inspection: normal respiratory effort and able to speak in complete sentences Cardio Jugular venous distension: no JVD Skin General skin exam: turgor normal Rashes: no rashes Neuro General: patient oriented x3 Extrem Other: Left Hip: nl exam nl gait no pain with FADIR Psych Appearance: grossly normal Affect: normal affect Attitude: cooperative Results Reviewed Results Reviewed: I personally reviewed relevant radiographs Left femoral head osteonecrosis without collapse and unchanged from prior Assessment & Plan Assessment & Plan (1) Lumbar pain: Code(s): M54.50 - Low back pain, unspecified Plan: This is a 57 year old man with a h/o avn without pain.. He has no pain with daily activity. His radiographs are stable. I recommend he continue activity as tolerated, he can follow up prn. (2) Avascular necrosis of bone of left hip: Code(s): M87.052 - Idiopathic aseptic necrosis of left femur Plan: Denies deep groin pain. No intervention warranted Plan Scribed for Marvin Duncan MD by Beto Calixto, medical technical writer, on 02/27/23 at 11:40 AM, EST. Orders: Orders XR hip LT 1V 02/27/23 M25.552 - Pain in left hip XR pelvis 1-2V 02/27/23 M25.559 - Pain in unspecified hip Coding Level of Care Code Est Pt Level 3 (06669) Diagnoses Lumbar pain M54.50 Avascular necrosis of bone of left hip M87.052
== END 2023-02-27 12:05 | disposition home or self-care (01) ==
PROVIDERS: PCP Nurse Practitioner Family; Visit Provider Orthopaedic Surgery
DX: M54.50 Low back pain, unspecified (principal); M87.052 Idiopathic aseptic necrosis of left femur
CPT/HCPCS: 99213

== ENCOUNTER 2023-07-13 14:47 | Outpatient (AMB) | payer OTHER, SELFPAY ==
[2023-07-13 15:16] VITALS: BP 128/80; PULSE 94; O2SAT 98; BMI 29.4
--- NOTE | 2023-07-13 15:16 | A.OFFPC_ITS ---
Vital Signs 07/13/23 15:16 Height 5 ft 5 in Weight 176 lb 8 oz BMI 29.4 BP 128/80 Blood Pressure Location Rt brachial Position Sitting Pulse 94 Pulse Source Pulse Oximeter Pulse Oximetry (%) 98 Oxygen Delivery Method Room Air Intake Visit Reasons: Discuss medical Issues Intake Note: Pt is here because he has bump on the top of his belly button and he snores Allergies shellfish derived Allergy (Unknown, Verified 07/13/23 15:50) vomiting/hives Medication List - Last Reconciled 07/13/23 by ESTHER VencesBRIAN albuterol sulfate 90 mcg/actuation (ProAir HFA) 2 puffs inhalation Q8H PRN buspirone 5 mg PO BID 30 days Tobacco use date assessed: 07/13/23 Dental Screening Dental Screen Date: 07/13/23 Did you have a dental visit in the last 12 months?: No Did you have a dental problem in the last 6 months where you did not have access to dental care?: No Was dental information given to patient?: No HPI Discuss medical Issues HPI Details Pt reports a bulge to his abd region that he recently noticed. Will refer to general surgery. Pt also reports snoring and increased fatigue. Will refer for sleep study. Denies fever, chills, and dizziness. [facility] Medical History Cervical radiculopathy Surgical History S/P lumbar fusion H/O colonoscopy History of lumbar fusion History of vasectomy Family History Father No problems noted. Mother Myocardial infarction CVD (cardiovascular disease) Sister Breast cancer Maternal Grandmother Myocardial infarction Maternal Grandfather No problems noted. Paternal Grandfather No problems noted. Paternal Grandmother No problems noted. Brother No problems noted. Son No problems noted. Son No problems noted. Daughter No problems noted. Daughter No problems noted. Sister No problems noted. Sister No problems noted. Sister No problems noted. Sister No problems noted. Sister No problems noted. Sister No problems noted. Sister No problems noted. Social History Housing: Apartment Alcohol intake: current Alcohol intake frequency: a few times a month Patient Tobacco Use Status: Current someday Tobacco user e-Cigarette/Vaping Use: Never Used Second Hand Smoke Exposure: No service: No Current occupational status: employed Current occupation: deals and ste[employer] Current occupational exposures/hazards: No Cognitive needs: No Hearing needs: No Vision needs: No Questionnaire PHQ-9 Over the last 2 weeks, how often have you been bothered by any of the following problems? 1. Little interest or pleasure in doing things: not at all 2. Feeling down, depressed, or hopeless: more than half the days 3. Trouble falling or staying asleep, or sleeping too much: several days 4. Feeling tired or having little energy: not at all 5. Poor appetite or overeating: not at all 6. Feeling bad about yourself - or that you are a failure or have let yourself or your family down: several days 7. Trouble concentrating on things, such as reading the newspaper or watching television: more than half the days 8. Moving or speaking so slowly that other people could have noticed. Or the opposite - being so fidgety or restless that you have been moving around a lot more than usual: more than half the days 9. Thoughts that you would be better off or of hurting yourself in some way: not at all Total score: 8 Depression Screening Interpretation: Negative Depression Screening Done: Yes 17375 - PHQ-9 Billing: Yes Source: Developed by Drs. Ned Ashraf, Renata Chris, Itz Ovalle and colleagues, with an educational pilar from [employer]. Thrive Questionnaire Date Thrive assessed: 07/13/23 I am a: Patient What is your living situation today?: I have a place to live, but I am worried about losing it in the future Within the past 12 months, did the food you bought not last and you didn't have the money to get more?: Never true Within the past 12 months, did you worry whether your food would run out before you got money to buy more?: Sometimes True Do you have trouble paying for medicines?: No Do you have trouble getting transportation to medical appointments?: No Do you have trouble paying your heating and electricity bill?: No Do you have trouble taking care of your child, family member or friend?: No Do you have trouble with day-to-day activities such as bathing, preparing meals, shopping, managing finances, etc.?: No Are you currently unemployed and looking for a job?: No Are you interested in more education?: No Currently or been in a relationship where the following occur: no concerns reported THRIVE Score: 2 AUDIT C Alcohol Use Questionnaire (AUDIT-C) 1. How often do you have a drink containing alcohol?: Never Total Score: 0 PIETER-7 AMB Questionnaire PIETER-7 Date PIETER - 7 assessed: 07/13/23 Feeling nervous, anxious, or on edge: 3 = Nearly every day Not being able to stop or control worryin = Nearly every day Worrying too much about different things: 2 = More than half the days Trouble relaxin = Nearly every day Being so restless that it is hard to sit still: 2 = More than half the days Becoming easily annoyed or irritable: 1 = Several days Feeling afraid as if something awful might happen: 2 = More than half the days Total PIETER-7 score (0-4 normal; 5-9 mild; 10-14 moderate; 15-21 severe): 16 Source: Developed by Drs. Ned Ashraf, Renata Chris, Itz Ovalle and colleagues, with an educational pilar from [employer]. Physical exam (Primary Care) Vital Signs: Last Vital Signs Pulse 94 07/13/23 15:16 BP 128/80 07/13/23 15:16 Pulse Ox 98 07/13/23 15:16 Oxygen Delivery Method Room Air 07/13/23 15:16 BMI result Body Mass Index 29.4 Tobacco/Smoking Status: Tobacco use Status Tobacco use date assessed 07/13/23 07/13/23 15:23 Patient Tobacco Use Status Current someday Tobacco 07/13/23 15:23 e-Cigarette/Vaping Use Never Used 07/13/23 15:23 PHQ-9: PHQ-9 Score PHQ-9: Total score 8 07/13/23 15:50 Depression Screening Interpretation: Negative Thrive Assessment: Date of Thrive Assessment Date Thrive assessed 07/13/23 07/13/23 15:46 Currently or been in a relationship where the following occur: no concerns reported Const General: cooperative Orientation/consciousness: patient oriented x3 Resp Effort & Inspection: normal respiratory effort Auscultation: clear to auscultation bilaterally Cardio Rate: regular rate Rhythm: regular rhythm Heart sounds: S1 normal heart sound present and S2 normal heart sound present GI Other: small umbilical hernia noted to umbilicus and just superior to umbilicus with herniation as well Neuro General: patient oriented x3 Psych Appearance: grossly normal Mental Status: mental status grossly normal Speech and movement: Normal speech and movement present Attitude: cooperative Thought process: Normal thought process present Assessment and Plan Assessment & Plan (1) Umbilical hernia: Code(s): K42.9 - Umbilical hernia without obstruction or gangrene Plan: Referred to general surgery (2) Snores: Code(s): R06.83 - Snoring Plan: Referred for sleep study (3) Fatigue: Code(s): R53.83 - Other fatigue Plan: Referred for sleep study Plan The patient agreed to the use of a medical billing supervisor for this encounter. Scribed for ALEXANDRA Kim by Erin Vidal medical billing supervisor, on 07/13/2023 at 15:45 EST. Orders: Referrals Sleep Medicine Referral R06.83 - Snoring, R53.83 - Other fatigue General Surgery Referral K42.9 - Umbilical hernia without obstruction or gangrene Coding Level of Care Code Est Pt Level 3 (25038) Diagnoses Umbilical hernia K42.9 Snores R06.83 Fatigue R53.83
== END 2023-07-13 17:02 | disposition home or self-care (01) ==
PROVIDERS: PCP Nurse Practitioner Family; Visit Provider Nurse Practitioner Family
DX: K42.9 Umbilical hernia without obstruction or gangrene (principal); R06.83 Snoring; R53.83 Other fatigue
CPT/HCPCS: 99213

== ENCOUNTER 2023-08-03 09:24 | Outpatient (AMB) | payer OTHER, SELFPAY ==
--- NOTE | 2023-08-03 09:36 | A.OFFVIS_ITS ---
Intake Vital Signs 3 08/03/23 09:51 Height 5 ft 5 in Weight 172 lb 4 oz BMI 28.7 BP 127/75 Blood Pressure Location Lt brachial Position Sitting Pulse 113 H Intake Visit Reasons: umbilical hernia Intake Note: Patient is seen in office for evaluation and treatment of an umbilical hernia. Pt c/o: onset 2 months, feels a lump, denies increase/decrease, pain, does work out with no issues, denies n/v/d/c, had abdominal surgery in the past Quarantine Officer Required: No Accompanied by: Self / Same As Patient Allergies shellfish derived Allergy (Unknown, Verified 08/03/23 09:50) vomiting/hives Medication List - Last Reconciled 08/03/23 by Henrique Dorado MD albuterol sulfate 90 mcg/actuation (ProAir HFA) 2 puffs inhalation Q8H PRN buspirone 5 mg PO BID 30 days HPI HPI Comments 2 History of Present Illness0 Details 57-year-old male patient presenting for evaluation of a ventral hernia. He 1st noted the lump approximately 1 month ago while doing ab work. Since this time the lump has increased in size. He denies any discomfort associated with the hernia but does feel the lump increasing in size especially when exercising. He denies any nausea, vomiting, fever or chills. He has had previous spine surgery performed through an anterior approach the lower abdomen but denies any previous surgery in the site of herniation. [facility] Medical History Cervical radiculopathy Surgical History S/P lumbar fusion H/O colonoscopy History of lumbar fusion History of vasectomy Family History Father No problems noted. Mother Myocardial infarction CVD (cardiovascular disease) Sister Breast cancer Maternal Grandmother Myocardial infarction Maternal Grandfather No problems noted. Paternal Grandfather No problems noted. Paternal Grandmother No problems noted. Brother No problems noted. Son No problems noted. Son No problems noted. Daughter No problems noted. Daughter No problems noted. Sister No problems noted. Sister No problems noted. Sister No problems noted. Sister No problems noted. Sister No problems noted. Sister No problems noted. Sister No problems noted. Social History Housing: Apartment Alcohol intake: current Alcohol intake frequency: a few times a month Patient Tobacco Use Status: Current someday Tobacco user e-Cigarette/Vaping Use: Never Used Second Hand Smoke Exposure: No service: No Current occupational status: employed Current occupation: deals and ste[employer] Current occupational exposures/hazards: No Cognitive needs: No Hearing needs: No Vision needs: No Review of Systems Const All systems reviewed & are unremarkable except as noted in HPI and below Physical Exam Vital Signs: Last Vital Signs Pulse 113 H 08/03/23 09:51 BP 127/75 08/03/23 09:51 BMI result Body Mass Index 28.7 Const General: cooperative and no acute distress Nutritional Appearance: well nourished Orientation/consciousness: patient oriented x3 Limitations: no limitations HEENT Head: Yes normocephalic and Yes atraumatic Ears: hearing grossly normal bilaterally Resp Effort & Inspection: normal respiratory effort, no audible wheezes, no cough and no respiratory distress Cardio Jugular venous distension: no JVD GI Other: Soft, nondistended, nontender, palpable hernia noted above the umbilicus measuring approximately 2 cm in diameter. The hernia increases in size with Valsalva maneuvers but reduces easily with light pressure. Inspection: Yes normal to inspection Abdomen image: 2 1. Palpable hernia located above the umbilicus, reducible with light pressure, 2 cm diameter Skin Other: Warm, dry, no rash Neuro General: patient oriented x3 Extrem General: Yes no clubbing, cyanosis or edema Assessment & Plan Assessment & Plan (1) Umbilical hernia: Code(s): K42.9 - Umbilical hernia without obstruction or gangrene Qualifiers: Obstruction and gangrene presence: without obstruction or gangrene Qualified Code(s): K42.9 - Umbilical hernia without obstruction or gangrene Plan 57-year-old male patient presenting with a ventral hernia in the upper abdomen which is easily reducible and measures approximately 2 cm. We discussed repair of the ventral hernia with mesh and after discussion of the procedure, risks, and alternatives, he consents to the surgery. Coding Level of Care Code New Pt Level 4 (20869) Diagnoses Umbilical hernia without obstruction and without gangrene K42.9 Obstruction and gangrene presence: without obstruction or gangrene
[2023-08-03 09:51] VITALS: BP 127/75; PULSE 113; BMI 28.7
== END 2023-08-03 10:02 | disposition home or self-care (01) ==
PROVIDERS: PCP Nurse Practitioner Family; Visit Provider Surgery
DX: K43.2 Incisional hernia without obstruction or gangrene (principal)
CPT/HCPCS: 99204

== ENCOUNTER → 2023-08-03 09:24 | Outpatient (BNVA) | payer OTHER, SELFPAY | PROVIDERS: PCP Nurse Practitioner Family; Visit Provider Surgery | DX: K42.9 Umbilical hernia without obstruction or gangrene (principal) | CPT/HCPCS: 99202 ==

== ENCOUNTER 2023-08-14 11:18 | Day surgery (SDC) | payer OTHER, SELFPAY ==
--- NOTE | 2023-08-11 10:13 | P.CONAN_ITS ---
Documented by User: Kathy Oliveros NP 08/11/23 10:13 HPI - Anesthesia Eval Consult details Narrative: 57yo M for Hernia Ventral Reducible with mesh PMFSH Active Problems Active Problems: All Active Problems (Updated 08/03/23 @ 10:40 by Henrique Dorado MD) Ventral hernia without obstruction or gangrene (Acute) Fatigue (Acute) Snores (Acute) Umbilical hernia (Acute) Lumbar pain (Acute) Left foot pain (Acute) [place] of foot (Acute) Bifid kidney (Acute) Hemorrhoids (Acute) Palpitations (Acute) Hydronephrosis (Acute) Tachycardia (Acute) Pelvic pain in male (Acute) Anxiety (Acute) Hyperkalemia (Acute) Erectile dysfunction (Acute) Acute pharyngitis (Acute) Avascular necrosis of bone of left hip (Acute) Left hip pain (Acute) Lower back pain (Acute) Screening PSA (prostate specific antigen) (Acute) Physical exam (Acute) Past Medical History Medical History Ventral hernia without obstruction or gangrene Cervical radiculopathy Family History Family History Father No problems noted. Mother Myocardial infarction CVD (cardiovascular disease) Sister Breast cancer Maternal Grandmother Myocardial infarction Maternal Grandfather No problems noted. Paternal Grandfather No problems noted. Paternal Grandmother No problems noted. Brother No problems noted. Son No problems noted. Son No problems noted. Daughter No problems noted. Daughter No problems noted. Sister No problems noted. Sister No problems noted. Sister No problems noted. Sister No problems noted. Sister No problems noted. Sister No problems noted. Sister No problems noted. Surgical History Surgical History (Updated 08/14/23 @ 11:44 by Althea Taveras RN) Hx of left knee surgery Hx of shoulder surgery Hx of fusion of cervical spine H/O colonoscopy History of lumbar fusion History of vasectomy Social History Social History Housing: Apartment Alcohol intake: current Alcohol intake frequency: a few times a month Patient Tobacco Use Status: Current someday Tobacco user e-Cigarette/Vaping Use: Never Used Second Hand Smoke Exposure: No Advance Directives: No Advance Directives Information Provided: Yes service: No Current occupational status: employed Current occupation: [employer] Current occupational exposures/hazards: No Cognitive needs: No Hearing needs: No Vision needs: No Meds Allergies Allergy/AdvReac Type Severity Reaction Status Date / Time shellfish derived Allergy Unknown vomiting/hi Verified 08/14/23 11:44 ves Home Medications Medication Instructions Recorded Confirmed Last Taken Type sildenafil 100 mg tablet 100 mg PO DAILY PRN Erectile 08/14/23 08/14/23 Unknown History Dysfunction Assessment and Plan Assessment Anesthesia Assessment: Chart Reviewed Documented by User: Ba Abdi MD 08/14/23 11:56 PMFSH Past Medical History Medical History Ventral hernia without obstruction or gangrene Cervical radiculopathy Family History Family History Father No problems noted. Mother Myocardial infarction CVD (cardiovascular disease) Sister Breast cancer Maternal Grandmother Myocardial infarction Maternal Grandfather No problems noted. Paternal Grandfather No problems noted. Paternal Grandmother No problems noted. Brother No problems noted. Son No problems noted. Son No problems noted. Daughter No problems noted. Daughter No problems noted. Sister No problems noted. Sister No problems noted. Sister No problems noted. Sister No problems noted. Sister No problems noted. Sister No problems noted. Sister No problems noted. Family history of problems with anesthesia: No Surgical History Surgical History (Updated 08/14/23 @ 11:44 by Althea Taveras RN) Hx of left knee surgery Hx of shoulder surgery Hx of fusion of cervical spine H/O colonoscopy History of lumbar fusion History of vasectomy History of Problems with Anesthesia: No Social History Social History Housing: Apartment Alcohol intake: current Alcohol intake frequency: a few times a month Patient Tobacco Use Status: Current someday Tobacco user e-Cigarette/Vaping Use: Never Used Second Hand Smoke Exposure: No Advance Directives: No Advance Directives Information Provided: Yes service: No Current occupational status: employed Current occupation: [employer] Current occupational exposures/hazards: No Cognitive needs: No Hearing needs: No Vision needs: No Meds Allergies Allergy/AdvReac Type Severity Reaction Status Date / Time shellfish derived Allergy Unknown vomiting/hi Verified 08/14/23 11:44 ves Home Medications Medication Instructions Recorded Confirmed Last Taken Type sildenafil 100 mg tablet 100 mg PO DAILY PRN Erectile 08/14/23 08/14/23 Unknown History Dysfunction Exam Airway Mallampati Class: II TM Dist: >3cm Loose/Missing/Broken Teeth: No Heart: rrr Lungs: cta Assessment and Plan Assessment Anesthesia Assessment: Anesthesia Plan Discussed and Smoking Cess. Discussed Final Anesthetic Review Family History of Problems with Anesthesia: No History of Problems with Anesthesia: No NPO: Yes ASA Class: II Final Preanesthetic Review: No Changes in Pt Med Stat, Meds/Allgs Chart Reviewed, Consent Obtained/Reviewed and Anes Risks/Benef Reviewed Patient Risk: Intermediate Procedure Risk: Low Anesthetic Plan Anesthetic Plan: GA Disposition: Standard PACU
[2023-08-14] VITALS (8 sets, daily range): BP systolic 129–150; BP diastolic 61–93; PULSE 79–89; RESP 15–20; TEMP 36.1–36.7; O2SAT 94–100; BMI 28.6
[2023-08-14] MEDS: Lactated Ringers 1,000 ML 100 ML IVCONT (12:11)
--- NOTE | 2023-08-14 12:15 | MHC.SHP ---
Pre-Procedural Eval Section A - 24 Hr Update-Section A only Date of Service: 08/14/23 The patient is an INPATIENT: No Changes since office visit: Yes Patient answered all questions; No Cold of Flu in the past 2 weeks, No New Medical Problems and No Changes in Medication The patient has been examined within 24 hours of the surgical procedure. The History & Physical has been completed within 30 days and I have reviewed it.: Yes Section B - Complete if H&P > 30 days Chief Complaint: Ventral hernia without obstruction or gangrene Allergies: Allergies Allergy/AdvReac Type Severity Reaction Status Date / Time shellfish derived Allergy Unknown vomiting/hi Verified 08/14/23 11:44 ves Plan Diagnosis/Plan: Unchanged I have reviewed the history and physical and performed a pertinent physical examination on my patient. No changes have occurred unless specified. Time Spent With Patient Time: Total time managing care of this patient today ____ minutes.
--- NOTE | 2023-08-14 13:51 | W.PM.OPN ---
Operative Note Operative Note Date of Service: 08/14/23 Narrative: Preoperative diagnosis: Ventral hernia, reducible, 4 cm Postoperative diagnosis: Same Procedure: Repair of ventral hernia, reducible with mesh Surgeon: Henrique Dorado MD Contemporary Or Modern Dancer: Kelli Chavez PA-C Anesthesia: General LMA Indications for procedure: 57-year-old male patient presenting with a palpable mass in the upper abdomen which increases in size with lifting and straining and reduces with light pressure. Operative findings: Multiple ventral hernias in the midline around the umbilicus. Specimen: None Estimated blood loss: Less than 2 mL Complications: None Procedure details: Patient was brought to the OR placed in a supine position. After administering general anesthesia patient's abdomen was prepped with ChloraPrep and draped in a sterile fashion. A surgical time-out was called the consent confirmed. Patient received preoperative antibiotics and Venodyne boots were in place. Local anesthesia consisting of 0.5% Sensorcaine was infiltrated the midline around the umbilicus. Incision was then made with a scalpel and carried out through subcutaneous tissue up to the hernia sac. A large midline sac was noted about a cm above the umbilicus. The sac was dissected circumferentially down to the fascial edge. The fascia was opened above and below the defect to allow a return of the abdominal contents into the abdominal cavity. Three additional fascial defects were noted including 1 at the umbilicus and 2 smaller ones slightly higher. The hernia contents were all reduced into the abdominal cavity and a preperitoneal space created below the fascia. A 8 cm round Ventralex mesh was then obtained. This was deployed within the preperitoneal space and secured circumferentially using 0 Tycron sutures. Fascia was then closed incorporating the mesh in the closure using the 0 Tycron suture in a [id number] fashion. Wounds were then irrigated with saline solution and suctioned dry. Wounds were checked for hemostasis. Additional local was infiltrated into the muscular tissue at this time. Dermis was then closed using interrupted 3-0 Polysorb sutures. Skin was closed using a running subcuticular 4-0 Polysorb suture. Sterile dressings were applied including 2 x 2 gauze and Tegaderm. The patient tolerated the procedure well. Sponge, instrument, needle counts reported as correct. The patient was returned to the PACU in stable condition.
[2023-08-14] MEDS: fentaNYL citrate/PF 100 MCG/2 ML VIAL 25 MCG IVPUSH (14:37)
== END 2023-08-14 15:32 | disposition home or self-care (01) ==
PROVIDERS: PCP Nurse Practitioner Family; Visit Provider Surgery
PROC: (CPT 49593; principal; 2023-08-14 13:00)
DX: K43.9 Ventral hernia without obstruction or gangrene (principal); Z79.899 Other long term (current) drug therapy; Z98.890 Other specified postprocedural states; F17.210 Nicotine dependence, cigarettes, uncomplicated
CPT/HCPCS: 49593; C1781; J0690; J1100; J1170; J2250; J2405; J2704; J2795; J3010

== ENCOUNTER → 2023-08-14 11:18 | Outpatient (BNV) | payer OTHER, SELFPAY | PROVIDERS: PCP Nurse Practitioner Family; Visit Provider Surgery | DX: K43.9 Ventral hernia without obstruction or gangrene (principal) | CPT/HCPCS: 49593 ==

== ENCOUNTER 2023-08-25 13:49 | Outpatient (AMB) | payer OTHER, SELFPAY ==
--- NOTE | 2023-08-25 14:06 | A.OFFVIS_ITS ---
Intake Vital Signs 08/25/23 14:07 Height 5 ft 5 in Weight 176 lb 6 oz BMI 29.3 BP 122/76 Blood Pressure Location Rt brachial Respiration 16 Pulse 105 H Pulse Source Pulse Oximeter Pulse Oximetry (%) 97 Oxygen Delivery Method Room Air Intake Visit Reasons: INP-Snoring - CONF w/address Intake Note: Pt presents to the office for new pt evaluation for snoring. 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 Main complaints-snoring , frequent arousals Sleep questionnaire- Difficulty falling asleep-no Difficulty staying asleep-yes Number of [id number] Snoring-yes Witnessed apneas-yes Gasping arousals-yes Nocturia-yes GERD-no Vivid dreams-yes Acting out dreams -no Abnormal behavior in sleep-sleep talking ABnormal movements in sleep-yes Morning headaches-yes Excessive daytime sleepiness-yes Daytime naps- no restless legs- yes Hallucinations-no Sleep study-no PFSH Medical History (Updated 08/25/23 @ 14:22 by Coretta Lopez MD) Hypersomnia Snoring Anxiety Ventral hernia without obstruction or gangrene Cervical radiculopathy Surgical History Hx of left knee surgery Hx of shoulder surgery Hx of fusion of cervical spine H/O colonoscopy History of lumbar fusion History of vasectomy Family History Father No problems noted. Mother Myocardial infarction CVD (cardiovascular disease) Sister Breast cancer Maternal Grandmother Myocardial infarction Maternal Grandfather No problems noted. Paternal Grandfather No problems noted. Paternal Grandmother No problems noted. Brother No problems noted. Son No problems noted. Son No problems noted. Daughter No problems noted. Daughter No problems noted. Sister No problems noted. Sister No problems noted. Sister No problems noted. Sister No problems noted. Sister No problems noted. Sister No problems noted. Sister No problems noted. Social History Housing: Apartment Alcohol intake: current Alcohol intake frequency: holidays/special occasions only Patient Tobacco Use Status: Current someday Tobacco user Tobacco use type: Cigarette e-Cigarette/Vaping Use: Never Used Second Hand Smoke Exposure: No service: No Current occupational status: employed Current occupation: [employer] Current occupational exposures/hazards: No Cognitive needs: No Hearing needs: No Vision needs: No Questionnaire [place] Sleepiness Scale Questions Sitting and reading: high chance of dozing Watching TV: high chance of dozing Sitting inactive in a theater, movie etc.: slight chance of dozing As a passenger in a car for an hour without break: moderate chance of dozing Lying down in the afternoon when circumstances permit: high chance of dozing Sitting and talking to someone: would never doze Sitting quietly after lunch without alcohol: moderate chance of dozing In a car, while stopped for a few minutes in the traffic: would never doze ESS < 10: normal, ESS > 12: pathologic: 14 Physical Exam Vital Signs: Last Vital Signs Pulse 105 H 08/25/23 14:07 Resp 16 08/25/23 14:07 BP 122/76 08/25/23 14:07 Pulse Ox 97 08/25/23 14:07 Oxygen Delivery Method Room Air 08/25/23 14:07 BMI result Body Mass Index 29.3 Const General: cooperative, healthy appearing and no acute distress Nutritional Appearance: average body habitus Orientation/consciousness: patient oriented x3 Eyes Pupils: Equal, round and reactive pupils present Neuro General: patient oriented x3, gait normal, tone normal, moves all extremities and no focal motor deficits Cranial nerves: Yes Equal, round and reactive pupils present, Yes Bilaterally intact EOM present, Yes Nystagmus not present, Yes Normal facial strength present, Yes Midline tongue present and Yes Symmetric palate elevation present Cognition (Neuro): normal cognition Gait exam (Neuro): Normal gait present Motor exam (neuro): 5/5 motor strength present throughout and Normal motor muscle tone present throughout Deep tendon reflexes (DTR's): Right triceps reflex intensity grade: 1+, Left triceps reflex intensity grade: 1+, Rt Biceps (C5, C6): 1+, Left biceps reflex intensity grade: 1+, Right brachioradialis reflex intensity grade: 1+, Left brachioradialis reflex intensity grade: 1+, Right patellar reflex intensity grade: 2+ and Left patellar reflex intensity grade: 2+ Assessment & Plan Assessment & Plan (1) Snoring: Code(s): R06.83 - Snoring (2) Hypersomnia: Code(s): G47.10 - Hypersomnia, unspecified Plan Will schedule for a home sleep test to evaluate for sleep apnea. Orders: Orders RT home sleep study Today G47.10 - Hypersomnia, unspecified, R06.83 - Snoring Medications: Discontinued oxycodone Partial Fill upon patient request. Discontinued Reason: Patient no longer taking 5 mg PO Q6H PRN 15 tabs 0RF pain (scale score 7-10) Coding Level of Care Code New Pt Level 3 (43439) Diagnoses Snoring R06.83 Hypersomnia G47.10
[2023-08-25 14:07] VITALS: BP 122/76; PULSE 105; RESP 16; O2SAT 97; BMI 29.3
== END 2023-08-25 14:30 | disposition home or self-care (01) ==
PROVIDERS: Absent Provider Psychiatry & Neurology Neurology; PCP Nurse Practitioner Family; Visit Provider Psychiatry & Neurology Neurology
DX: R06.83 Snoring (principal); G47.10 Hypersomnia, unspecified
CPT/HCPCS: 99203

== ENCOUNTER → 2023-08-25 13:49 | Outpatient (BNVA) | payer OTHER, SELFPAY | PROVIDERS: Absent Provider Psychiatry & Neurology Neurology; PCP Nurse Practitioner Family; Visit Provider Psychiatry & Neurology Neurology | DX: R06.83 Snoring (principal); G47.10 Hypersomnia, unspecified | CPT/HCPCS: 99202 ==

== ENCOUNTER 2023-09-08 10:42 | Outpatient (AMB) | payer OTHER, SELFPAY ==
--- NOTE | 2023-09-08 11:10 | A.OFFVIS_ITS ---
Vital Signs 09/08/23 11:15 Height 5 ft 5 in Weight 179 lb BMI 29.8 BP 130/70 Blood Pressure Location Lt brachial Position Sitting Pulse 88 Intake Visit Reasons: S/P ventral hernia w/mesh Intake Note: Patient is seen in office for post op assessment post ventral hernia repair. Pt c/o: denies any concerns Stitchdowns Toe Former Required: No Accompanied by: Self / Same As Patient Allergies shellfish derived Allergy (Unknown, Verified 09/08/23 11:14) vomiting/hives Medication List - Last Reconciled 09/08/23 by Henrique Dorado MD albuterol sulfate 90 mcg/actuation (ProAir HFA) 2 puffs inhalation Q8H PRN buspirone 5 mg PO BID 30 days sildenafil 100 mg PO DAILY PRN HPI Comments Details: Patient returns for follow-up examination after repair of ventral hernia. He feels well and denies any ongoing abdominal symptoms. Does have occasional cramping with lifting. He denies any nausea or vomiting. [facility] Medical History (Updated 08/25/23 @ 14:22 by Coretta Lopez MD) Hypersomnia Snoring Anxiety Ventral hernia without obstruction or gangrene Cervical radiculopathy Surgical History (Updated 09/04/23 @ 15:41 by LENNY Brown) History of ventral hernia repair (08/14/23) Hx of left knee surgery Hx of shoulder surgery Hx of fusion of cervical spine H/O colonoscopy History of lumbar fusion History of vasectomy Family History Father No problems noted. Mother Myocardial infarction CVD (cardiovascular disease) Sister Breast cancer Maternal Grandmother Myocardial infarction Maternal Grandfather No problems noted. Paternal Grandfather No problems noted. Paternal Grandmother No problems noted. Brother No problems noted. Son No problems noted. Son No problems noted. Daughter No problems noted. Daughter No problems noted. Sister No problems noted. Sister No problems noted. Sister No problems noted. Sister No problems noted. Sister No problems noted. Sister No problems noted. Sister No problems noted. Social History Housing: Apartment Alcohol intake: current Alcohol intake frequency: holidays/special occasions only Patient Tobacco Use Status: Current someday Tobacco user Tobacco use type: Cigarette e-Cigarette/Vaping Use: Never Used Second Hand Smoke Exposure: No service: No Current occupational status: employed Current occupation: [employer] Current occupational exposures/hazards: No Cognitive needs: No Hearing needs: No Vision needs: No Physical Exam Const General: no acute distress Nutritional Appearance: well nourished Resp Effort & Inspection: normal respiratory effort GI Other: Abdominal incision is clean, dry, and intact without redness or discharge. No hernia noted with Valsalva maneuvers. Extrem General: Yes no clubbing, cyanosis or edema Assessment & Plan Assessment & Plan (1) Umbilical hernia: Code(s): K42.9 - Umbilical hernia without obstruction or gangrene Category: Medical Qualifiers: Obstruction and gangrene presence: without obstruction or gangrene Qualified Code(s): K42.9 - Umbilical hernia without obstruction or gangrene Plan 57-year-old male patient status post repair of an umbilical hernia with mesh. He tolerated the procedure well and his wounds are healing nicely. He may resume normal activities without restriction and should follow up as needed. Coding Level of Care Code Global (77328) Diagnoses Umbilical hernia without obstruction and without gangrene K42.9 Obstruction and gangrene presence: without obstruction or gangrene
[2023-09-08 11:15] VITALS: BP 130/70; PULSE 88; BMI 29.8
== END 2023-09-08 11:35 | disposition home or self-care (01) ==
PROVIDERS: PCP Nurse Practitioner Family; Visit Provider Surgery
DX: K42.9 Umbilical hernia without obstruction or gangrene (principal); Z09 Encounter for follow-up examination after completed treatment for conditions other than malignant neoplasm
CPT/HCPCS: 99212

== ENCOUNTER → 2023-09-08 10:42 | Outpatient (BNVA) | payer OTHER, SELFPAY | PROVIDERS: PCP Nurse Practitioner Family; Visit Provider Surgery | DX: Z09 Encounter for follow-up examination after completed treatment for conditions other than malignant neoplasm (principal); Z87.19 Personal history of other diseases of the digestive system | CPT/HCPCS: 99212 ==

== ENCOUNTER 2023-09-10 21:44 | Emergency (ER) | payer OTHER, SELFPAY ==
--- NOTE | 2023-09-10 22:09 | ED.PSYCH ---
HPI - Psych General Chief Complaint: Psychiatric Symptoms Stated Complaint: SI W/ PLAN Time Seen by Provider: 09/10/23 21:45 Source: patient and old records reviewed Mode of arrival: EMS Limitations: no limitations History of Present Illness HPI Narrative: 57 yo male with PMH of anxiety and recent ventral hernia repair who states his whole routine got messed up and hasn't been able to go to the gym. He was sitting by the [place] texting a friend's sister that he should just jump in and go for a swim - which he relays to end it. He states he needs help and is here for a wellness check. MD complaint: suicidal ideation and feels depressed Onset (ago): week(s) Duration: intermittent and getting worse History of same: No Relieving factors: none Exacerbating factors: other Context: significant life stressor Associated psychiatric symptoms: depression and suicidal ideation Associated symptoms: denies other symptoms Treatments prior to arrival: none If self harm: admits thoughts of self harm and has plan Related Data Home Medications ?Medication ?Instructions ?Recorded ?Confirmed sildenafil 100 mg tablet 100 mg PO DAILY PRN Erectile 08/14/23 09/08/23 Dysfunction Previous Rx's ?Medication ?Instructions ?Recorded albuterol sulfate 90 mcg/actuation 2 puff inhalation Q8H PRN 03/24/22 aerosol inhaler (ProAir HFA) bronchospasm #8.5 grams buspirone 5 mg tablet 5 mg PO BID 30 days #60 tabs 08/24/23 Allergies Allergy/AdvReac Type Severity Reaction Status Date / Time shellfish derived Allergy Unknown vomiting/hi Verified 09/10/23 22:19 ves Review of Systems Review of Systems: Constitutional : No Fever, No Chills ENT/Mouth : No Ear Pain, No Nasal Congestion, No sore throat Eyes: No Eye Pain, No Swelling, No Redness Cardiovascular : No Chest Pain, No SOB Respiratory : No Cough, No Sputum, No Dyspnea Gastrointestinal : No Nausea, No Vomiting, No Diarrhea, No Hematochezia, No Melena Genitourinary : No Dysuria, No Urinary Frequency, No Hematuria Musculoskeletal : No Myalgias Skin : No Skin Lesions, No rash Neuro : No Weakness, No Numbness, No Paresthesias, No Dizziness, No Headache Psych : positive Anxiety, positive Depression, positive SI no HI Heme/Lymph: No Lymphadenopathy Endocrine : No Polyuria, No Polydipsia All other systems reviewed and are negative [facility] Past Medical History Attestation statement: The following information was validated with the patient. Source: old records reviewed Medical History Hypersomnia Snoring Anxiety Ventral hernia without obstruction or gangrene Cervical radiculopathy Surgical History History of ventral hernia repair (08/14/23) Hx of left knee surgery Hx of shoulder surgery Hx of fusion of cervical spine H/O colonoscopy History of lumbar fusion History of vasectomy Family History Family History Father No problems noted. Mother Myocardial infarction CVD (cardiovascular disease) Sister Breast cancer Maternal Grandmother Myocardial infarction Maternal Grandfather No problems noted. Paternal Grandfather No problems noted. Paternal Grandmother No problems noted. Brother No problems noted. Son No problems noted. Son No problems noted. Daughter No problems noted. Daughter No problems noted. Sister No problems noted. Sister No problems noted. Sister No problems noted. Sister No problems noted. Sister No problems noted. Sister No problems noted. Sister No problems noted. Social History Social History Housing: Apartment Alcohol intake: current Alcohol intake frequency: holidays/special occasions only Patient Tobacco Use Status: Current someday Tobacco user Tobacco use type: Cigarette e-Cigarette/Vaping Use: Never Used Second Hand Smoke Exposure: No Advance Directives: No Advance Directives Information Provided: No service: No Current occupational status: employed Current occupation: [employer] Current occupational exposures/hazards: No Cognitive needs: No Hearing needs: No Vision needs: No Physical Exam Vital Signs: Vital Signs: Last Vital Signs Temp 98.0 F 09/11/23 00:53 Pulse 83 09/11/23 00:53 Resp 16 09/11/23 00:53 BP 116/63 09/11/23 00:53 Pulse Ox 97 09/11/23 00:53 O2 Del Method Room Air 09/11/23 00:53 BMI result Body Mass Index 29.5 Appearance: Alert. Oriented X3. No acute distress. Eyes: Pupils equal, round and reactive to light. ENT: Pharynx normal. Neck: Normal inspection. Neck supple. CVS: Normal heart rate and rhythm. Pulses normal. Respiratory: No respiratory distress. Breath sounds normal. Abdomen: Soft and nontender. Skin: Skin warm and dry. Normal skin color. Normal skin turgor. Extremities: No lower extremity edema. No calf ttp Neuro: Oriented X 3. No motor deficit. No sensory deficit. CN2-12 intact Course Course Course Narrative: inpatient bed search per [facility] Medical Decision Making Medical Decision Making MDM Narrative: 57 yo male with anxiety and recent hernia repair that he notes triggered change in his usual day routine and he is depressed. He texted SI statements and had thoughts to jump in [place] was sitting next to the river. At this time will obtain labs and CARE team consult. He is voluntary if he tries to leave will place on section 12. Differential Diagnosis Differential Diagnoses: The differential diagnosis associated with the presentation includes depression, SI Admission/Observation Consideration of admission/observation: Escalation of care including admission/observation considered physician observation started at 1015pm pending CARE team consult Lab Data [facility] Lab Attestation statement: I reviewed the patient's lab results. 09/10/23 22:14 09/10/23 22:14 Labs: Lab Results 09/10/23 Range/Units 22:14 WBC 7.8 (4.8-10.8) X10*3/uL RBC 4.80 (4.60-5.80) X10*6/uL Hgb 13.9 L (14.0-18.0) g/dl Hct 41.6 L (42.0-52.0) % MCV 86.7 (80.0-98.0) fL MCH 29.0 (27.0-33.0) pg MCHC 33.4 (31.0-36.0) g/dl RDW 13.2 (11.0-16.0) % Plt Count 236 (160-400) X10*3/uL MPV 9.1 L (9.4-12.4) fL Immature Gran % (Auto) 0.4 (0.0-0.4) % Neut % (Auto) 48.6 (45-73) % Lymph % (Auto) 30.7 (20-40) % [place] % (Auto) 14.6 H (2-11) % Eos % (Auto) 5.3 H (0-4) % Baso % (Auto) 0.4 (0-2) % Lymph # (Auto) 2.4 (1.2-4.9) X10*3/uL [place] # (Auto) 1.1 (0.1-1.2) X10*3/uL Eos # (Auto) 0.4 (0.0-0.4) X10*3/uL Baso # (Auto) 0.0 (0.0-0.2) X10*3/uL Abs Immat Gran (auto) 0.03 (0.00-0.03) X10*3/uL Absolute Neuts (auto) 3.8 (2.0-8.3) x10*3/uL Absolute Nucleated RBC 0.000 (0.0-0.012) X10*3/uL Nucleated RBC % (auto) 0.0 (0.0-0.2) /100WBC Sodium 140 (135-145) mmol/L Potassium 3.9 (3.3-5.1) mmol/L Chloride 104 (96-108) mmol/L Carbon Dioxide 27 (22-29) mmol/L Anion Gap 13 (12-20) BUN 25 H (9-16) mg/dL Creatinine 1.02 (0.5-1.4) mg/dL Estim Creat Clear Calc 77.9 Estimated GFR > 60 Random Glucose 173 H (60-115) mg/dL Calcium 9.0 D (8.4-10.2) mg/dL Magnesium 2.1 (1.6-2.6) mg/dL Total Bilirubin 0.3 (0.0-1.0) mg/dL Direct Bilirubin 0.1 (0.0-0.5) mg/dL AST 27 (5-37) U/L ALT 26 (0-40) U/L Alkaline Phosphatase 92 (39-117) U/L Total Protein 7.0 (6.5-8.0) g/dL Albumin 4.0 (3.5-5.0) g/dL Ethyl Alcohol < 10 mg/dL Influenza Type A (PCR) NEGATIVE (Negative) Influenza Type B (PCR) NEGATIVE (Negative) RSV RNA Qual (PCR) NEGATIVE (Negative) SARS-CoV-2 RNA (RT-PCR) NEGATIVE (Negative) Independent Historian Clinical information obtained from an independent historian. History obtained from or confirmed by: EMS External Record Review External record reviewed: Inpatient record Discharge Plan Discharge Clinical Impression: Suicidal ideation Patient Disposition: Still a Patient Prescriptions: No Action buspirone 5 mg tablet 5 mg PO BID 30 Days Qty: 60 3RF sildenafil 100 mg tablet 100 mg PO DAILY PRN (Reason: Erectile Dysfunction) albuterol sulfate [ProAir HFA] 90 mcg/actuation HFA aerosol inhaler 2 puff inhalation Q8H PRN (Reason: bronchospasm) Qty: 8.5 4RF Print Language: [place] Island[place]
[2023-09-10 22:14] VITALS: BP 110/70; PULSE 99; RESP 16; TEMP 36.6; O2SAT 99; BMI 29.5
[2023-09-10 22:20] LABS: MANUAL DIFF FLAG NO
[2023-09-10 22:23] LABS: Basophils Percent Auto 0.4 % (0-2); Eosinophils Absolute Auto 0.4 X10*3/uL (0.0-0.4); Eosinophils Percent Auto 5.3 % (0-4); Hematocrit 41.6 % (42.0-52.0); Hemoglobin 13.9 g/dl (14.0-18.0); Imm Gran Abs Auto 0.03 X10*3/uL (0.00-0.03); Imm Gran Pct Auto 0.4 % (0.0-0.4); Lymphocytes Absolute Auto 2.4 X10*3/uL (1.2-4.9); Lymphocytes Percent Auto 30.7 % (20-40); Mean Corpuscular HGB Conc 33.4 g/dl (31.0-36.0); Mean Corpuscular Volume 86.7 fL (80.0-98.0); Mean Platelet Volume 9.1 fL (9.4-12.4); Monocytes Absolute Auto 1.1 X10*3/uL (0.1-1.2); Monocytes Percent Auto 14.6 % (2-11); Neutrophils Absolute Auto 3.8 x10*3/uL (2.0-8.3); Neutrophils Percent Auto 48.6 % (45-73); Platelet Count 236 X10*3/uL (160-400); Red Cell Distribution Width 13.2 % (11.0-16.0); White Blood Count 7.8 X10*3/uL (4.8-10.8)
[2023-09-10 22:39] LABS: Alanine Aminotransferase 26 U/L (0-40); Alkaline Phosphatase 92 U/L (39-117); Anion Gap 13 (12-20); Aspartate Amino Transferase 27 U/L (5-37); Bilirubin Direct 0.1 mg/dL (0.0-0.5); Bilirubin Total 0.3 mg/dL (0.0-1.0); Blood Urea Nitrogen 25 mg/dL (9-16); Carbon Dioxide 27 mmol/L (22-29); Chloride 104 mmol/L (96-108); Creatinine Clr Calc Pharmacy 77.9; Estimated Glomerular Filt Rate > 60; Ethanol < 10 mg/dL; Glucose Random 173 mg/dL (60-115); Magnesium 2.1 mg/dL (1.6-2.6); Potassium 3.9 mmol/L (3.3-5.1); Sodium 140 mmol/L (135-145)
[2023-09-10 23:24] LABS: Influenza A PCR NEGATIVE (Negative); Influenza B PCR NEGATIVE (Negative); Resp Syncy Virus RNA Qual PCR NEGATIVE (Negative); SARS COV2 PCR INHOUSE NEGATIVE (Negative)
[2023-09-11 00:53] VITALS: BP 116/63; PULSE 83; RESP 16; TEMP 36.7; O2SAT 97
[2023-09-11 06:32] VITALS: BP 107/71; PULSE 74; RESP 16; TEMP 37.1; O2SAT 98
[2023-09-11 10:14] LABS: Appearance Urine Clear; Color Urine Yellow; Glucose Urine UA Negative (Negative); Leukocyte Esterase Urine Small (1+) (Negative); Nitrite Urine Negative (Negative); Specific Gravity - Urine 1.025 (1.005-1.025); UMIC TRIGGER UACC YES; Urine Blood Negative (Negative); Urine Ketones Negative (Negative); Urine Protein Negative (Neg-Trace)
[2023-09-11 10:19] LABS: Bacteria Urine None Seen (None Seen); Hyaline Casts Urine 0-2 /LPF (0-2); RBC Urine 0-2 /HPF (0-2); Squamous Epithelial Cell Urine 0-2 /HPF (0-2); UACC Culture Trigger YES
[2023-09-11 10:26] LABS: Amphetamine Screen Urine Not Detected (Not Detect); Barbiturates, Urine Not Detected (Not Detect); Benzodiazepines Screen Urine Not Detected (Not Detect); Buprenorphine Scr Not Detected (Not Detect); Cannabinoid Screen Urine Not Detected (Not Detect); Cocaine Screen Urine POSITIVE (Not Detect); Fentanyl, urine Not Detected (Not Detect); Methadone Screen, Urine Not Detected (Not Detect); Opiate Screen Urine Not Detected (Not Detect); Oxycodone Screen Urine Not Detected (Not Detect); Phencyclidine Screen Urine Not Detected (Not Detect)
--- NOTE | 2023-09-11 13:29 | PM.PSYCN ---
History of Present Illness Date of Service: 09/11/2023 Chief Complaint: SI W/ PLAN Sources of Information: patient interviewed, chart reviewed and crisis/core team assessment reviewed HPI Narrative: Mr. Taylor is a 57 year-old male who was brought by police at request of friend for wellness check after he sent text message to friend saying something about going to the river and jumping. Pt states he is not sure exactly what he said but states that along the lines of feeling more depressed. He adamantly denies any plan or intent to harm himself. He is slightly minimizing events that lead to this ED assessment in the sense that he states everything is fine, I am fine. When asked about depression, pt states I'm not depressed. He reports he is supposed to go to work today and also that he had to pay electricity and worried about being here in the hospital instead of being home/work. He reports seeing a therapist. He reports his PCP prescribing buspar for anxiety. We discussed considering antidepressant, but he declines stating that he recently had surgery and worried about any nausea that medications can cause. No prior inpt admission He denies hx of suicide attempts. AZEB Amador did speak with ex partner who denied any safety concerns and reported that pt was with her this weekend. This is not the same person he sent text message to who subsequently called police for wellness check. AZEB Amador also talked with Estefania friend who received text message- who reports that pt has asked her to have a romantic relationship with him but she states she has been firm stating that this would not be possible, in this context, friend reports that pt told her that being pushed away triggered bad memories. [facility] Medical History Hypersomnia Snoring Anxiety Ventral hernia without obstruction or gangrene Cervical radiculopathy Surgical History History of ventral hernia repair (08/14/23) Hx of left knee surgery Hx of shoulder surgery Hx of fusion of cervical spine H/O colonoscopy History of lumbar fusion History of vasectomy Diagnostics Vital Signs (24Hr): Vital Signs - 24 hr 09/10/23 22:14 09/11/23 00:53 09/11/23 06:32 Temperature 97.9 F 98.0 F 98.8 F Pulse Rate 99 83 74 Respiratory Rate 16 16 16 Blood Pressure 110/70 116/63 107/71 Pulse Oximetry 99 97 98 Oxygen Delivery Method Room Air Room Air Room Air BMI result Body Mass Index 29.5 Labs 09/10/23 22:14 09/10/23 22:14 Labs: Laboratory Results - last 48 hr 09/10/23 09/11/23 22:14 09:58 WBC 7.8 RBC 4.80 Hgb 13.9 L Hct 41.6 L MCV 86.7 MCH 29.0 MCHC 33.4 RDW 13.2 Plt Count 236 MPV 9.1 L Immature Gran % (Auto) 0.4 Neut % (Auto) 48.6 Lymph % (Auto) 30.7 [place] % (Auto) 14.6 H Eos % (Auto) 5.3 H Baso % (Auto) 0.4 Lymph # (Auto) 2.4 [place] # (Auto) 1.1 Eos # (Auto) 0.4 Baso # (Auto) 0.0 Abs Immat Gran (auto) 0.03 Absolute Neuts (auto) 3.8 Absolute Nucleated RBC 0.000 Nucleated RBC % (auto) 0.0 Sodium 140 Potassium 3.9 Chloride 104 Carbon Dioxide 27 Anion Gap 13 BUN 25 H Creatinine 1.02 Estim Creat Clear Calc 77.9 Estimated GFR > 60 Random Glucose 173 H Calcium 9.0 D Magnesium 2.1 Total Bilirubin 0.3 Direct Bilirubin 0.1 AST 27 ALT 26 Alkaline Phosphatase 92 Total Protein 7.0 Albumin 4.0 Urine Color Yellow Urine Appearance Clear Urine pH 6.0 Ur Specific [place] 1.025 Urine Protein Negative Urine Glucose (UA) Negative Urine Ketones Negative Urine Blood Negative Urine Nitrite Negative Ur Leukocyte Esterase Small (1+) H Urine RBC 0-2 Urine WBC 11-20 H Ur Squamous Epith Cells 0-2 Urine Bacteria None Seen Hyaline Casts 0-2 Urine Opiates Screen Not Detected Ur Buprenorphine Scrn Not Detected Ur Oxycodone Screen Not Detected Urine Methadone Screen Not Detected Urine Fentanyl Screen Not Detected Ur Barbiturates Screen Not Detected Ur Phencyclidine Scrn Not Detected Ur Amphetamines Screen Not Detected U Benzodiazepines Scrn Not Detected Urine Cocaine Screen POSITIVE H U Marijuana (THC) Screen Not Detected Ethyl Alcohol < 10 Influenza Type A (PCR) NEGATIVE Influenza Type B (PCR) NEGATIVE RSV RNA Qual (PCR) NEGATIVE SARS-CoV-2 RNA (RT-PCR) NEGATIVE Mental Status Exam Mental Status Exam Narrative: Appearance: wearing hospital gown, fair hygiene, in NAD behavior: superficially cooperative Psychomotor: no agitation or retardation noted Speech: clear, normal rate/rhythm/volume, spontaneous TP: linear TC: wanting to go home Mood: better Affect: constricted SI: denies HI: denies VH/AH: none Delusions: none Insight/judgment: fair x 2 memory/cog: alert, oriented x 3. grossly intact to conversational testing. Medications Allergies Allergies Allergy/AdvReac Type Severity Reaction Status Date / Time shellfish derived Allergy Unknown vomiting/hi Verified 09/10/23 22:19 ves Assessment & Plan Assessment & Plan (1) MDD (major depressive disorder), recurrent episode, moderate: Status: Acute Code(s): F33.1 - Major depressive disorder, recurrent, moderate Plan Mr. Taylor is a 57 year-old male who was brought by police after friend called 911 due to pt sending text message stating that he was depressed and thinking about jumping to the river. In the ED, pt adamantly denies any plan or intent to harm himself. He reported previously to care team provider that after recent surgery he was not able to go to gym which helps with his stress level. He tells this web content writer he is not depressed and reports he will follow up with [facility] where he has been seeing a therapist. PLAN 1. Pt advised to follow up with [facility]. No imminent safety concern in terms of self harm. it appears that text message was in context of feeling rejected romantically, perhaps out of frustration more than with intent to harm self. Pt presents calmer today and denies any plan or intent to harm himself. Total time managing care of this patient today ____ minutes.
[2023-09-11 15:11] VITALS: BP 107/71; PULSE 74; RESP 16; TEMP 37.1; O2SAT 98
--- NOTE | 2023-09-11 17:28 | MHC.CARE ---
Referral for [facility] 3-day follow up after discharge was faxed and activated.
== END 2023-09-11 15:17 | disposition home or self-care (01) ==
PROVIDERS: Emergency Provider Emergency Medicine; PCP Nurse Practitioner Family
DX: R45.851 Suicidal ideations (principal)
CPT/HCPCS: 0241U; 80048; 80076; 80307; 81001; 83735; 85025; 87086; 99285; S9485

== ENCOUNTER → 2023-09-10 22:32 | Outpatient (BNV) | payer OTHER, SELFPAY | PROVIDERS: Emergency Provider Emergency Medicine; PCP Nurse Practitioner Family; Visit Provider Social Worker | DX: F33.1 Major depressive disorder, recurrent, moderate (principal) | CPT/HCPCS: 99285 ==

== ENCOUNTER → 2023-10-04 08:13 | Outpatient (REF) | payer OTHER, SELFPAY | LOC: HO.SL 08:13 | PROVIDERS: PCP Nurse Practitioner Family; Visit Provider Psychiatry & Neurology Neurology | DX: Z13.89 Encounter for screening for other disorder (principal) ==

== ENCOUNTER 2023-10-16 08:06 | Outpatient (REF) | payer OTHER, SELFPAY ==
--- NOTE | ~2023-10-16 | US_ITS ---
EXAMINATION: US RETROPERITONEAL LIMITED (RENAL ONLY) CLINICAL INFORMATION: Unspecified hydronephrosis. COMPARISON: CT abdomen and pelvis 10/19/2022. Renal ultrasound 07/15/2022. Ultrasound bladder 02/09/2022. TECHNIQUE: Real-time imaging of the kidneys. FINDINGS: RIGHT KIDNEY: 11.0 x 4.7 x 4.8 cm (SAG x AP x TRV). The kidney is normal in size, contour, and echogenicity. Renal cortical thickness is normal. No calculi or focal parenchymal lesions. No hydronephrosis. 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 LEFT KIDNEY: 10.5 x 6.2 x 6.0 cm (SAG x AP x TRV). The kidney is normal in size, contour, and echogenicity. Renal cortical thickness is normal. No calculi or focal parenchymal lesions. No hydronephrosis. Echogenic foci may be vascular in origin. US/US renal BI IMPRESSION: 1. No hydronephrosis. 2. 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
== END 2023-10-16 08:07 | disposition home or self-care (01) ==
LOC: HO.US 08:06
PROVIDERS: PCP Nurse Practitioner Family; Visit Provider Nurse Practitioner Family
DX: N13.30 Unspecified hydronephrosis (principal)
CPT/HCPCS: 76775

== ENCOUNTER 2023-10-25 11:30 | Outpatient (REF) | payer OTHER, SELFPAY ==
[2023-10-25 13:47] LABS: Blood Urea Nitrogen 13 mg/dL (9-16); Estimated Glomerular Filt Rate > 60
[2023-10-25 14:08] LABS: Prostate Specific Antigen 3.86 ng/mL (<0.05-4.0)
== END 2023-10-25 11:31 | disposition home or self-care (01) ==
LOC: HO.HMGCLDS 11:30
PROVIDERS: PCP Nurse Practitioner Family; Visit Provider Nurse Practitioner Family
DX: N13.30 Unspecified hydronephrosis (principal); Z12.5 Encounter for screening for malignant neoplasm of prostate
CPT/HCPCS: 36415; 82565; 84153; 84520

== ENCOUNTER 2023-10-27 09:27 | Outpatient (AMB) | payer OTHER, SELFPAY ==
--- NOTE | 2023-10-27 09:37 | MHC.OFFVIS ---
Intake Visit Reasons: 1yr follow up/labs/US Intake Note: Patient presents today for follow up on: Ultasound and lab results Imagin10/16/23 PSA: 3.86 Urology Medications: Sildenafil Blood Thinner: none Fermentologist Required: No Accompanied by: Self / Same As Patient Allergies shellfish derived Allergy (Unknown, Verified 10/27/23 10:14) vomiting/hives Medication List - Last Reconciled 10/27/23 by JESSICA CrockerP- albuterol sulfate 90 mcg/actuation (ProAir HFA) 2 puffs inhalation Q8H PRN sildenafil 100 mg PO DAILY PRN HPI Comments Details: Misael is a 58 year old male patient of Dr. Butler who was accompanied by his girlfriend at today's visit. He presents to the office today for a follow up of his ED and mild hydronephrosis. Recent renal imaging results reviewed with the patient today. Bilateral kidneys with no hydronephrosis, and or renal calculi. 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 In discussion with the patient today he reports to be doing and feeling well. Recent PSA results reviewed with the patient today as noted and trended below. PSAs: 11/02 0.8, 01/03 1.0, 11/04 1.1, 11/05 3.9 Discussed increase/bump in PSA. Discussed at length potential causes for increase in PSA. Discussed redraw with no sex the night before, no caffeine morning of, and no heavy lifting 1-2 days prior. He otherwise denies any bothersome urinary issues or concerns. He reports to have significantly decrease his consumption of energy drinks and feels this has been helpful in the symptoms he had previously been experiencing. He reports to be happy with his erections with as needed sildenafil. In office urinalysis results reviewed with the patient today. He otherwise offers no other issues or concerns at this time. BUN: 11/30 20, 11/02 26, 08/03 21, 08/03 21, 01/03 23, 11/04 17, 11/04 19, 09/05 25, 11/05 13 CREATININE:11/30 0.93, 11/02 1.12, 08/03 1.31, 01/03 1.08, 11/04 1.01, 09/05 1.02, 11/05 0.96 [facility]LY [facility] Medical History Hypersomnia Snoring Anxiety Ventral hernia without obstruction or gangrene Cervical radiculopathy Surgical History History of ventral hernia repair (08/14/23) Hx of left knee surgery Hx of shoulder surgery Hx of fusion of cervical spine H/O colonoscopy History of lumbar fusion History of vasectomy Family History Father No problems noted. Mother Myocardial infarction CVD (cardiovascular disease) Sister Breast cancer Maternal Grandmother Myocardial infarction Maternal Grandfather No problems noted. Paternal Grandfather No problems noted. Paternal Grandmother No problems noted. Brother No problems noted. Son No problems noted. Son No problems noted. Daughter No problems noted. Daughter No problems noted. Sister No problems noted. Sister No problems noted. Sister No problems noted. Sister No problems noted. Sister No problems noted. Sister No problems noted. Sister No problems noted. 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 Current occupational exposures/hazards: No Cognitive needs: No Hearing needs: No Vision needs: No Review of Systems Const Reports no additional complaints Eyes Reports no additional complaints ENT Reports no additional complaints Card Reports no additional complaints Resp Reports no additional complaints GI Reports no additional complaints Reports as per HPI Musc Reports no additional complaints Neuro Reports no additional complaints Psych Reports no additional complaints Endo Reports no additional complaints Physical Exam Const General: cooperative, healthy appearing, comfortable, no acute distress, well developed, alert and awake Orientation/consciousness: patient oriented x3 Limitations: no limitations HEENT Head: Yes normal to inspection, Yes normocephalic and Yes atraumatic Eyes General: appearance normal, both eyes and all related structures Neck Neck: Yes normal visual inspection and Yes trachea midline Chest Chest palpation & inspection: normal inspection of the chest Resp Effort & Inspection: normal respiratory effort and able to speak in complete sentences Cardio Rate: regular rate GI Inspection: Yes normal to inspection Palpation (GI): Soft to palpation General: Yes no CVA tenderness Back/Spine/Pelvis Back: no CVA tenderness Neuro General: patient oriented x3 Extrem General: Yes normal to inspection Psych Appearance: grossly normal and well kempt Mental Status: mental status grossly normal Speech and movement: Normal speech and movement present and Clear speech present Affect: normal affect Attitude: cooperative Thought process: Normal thought process present Thought content: Normal thought content present Insight: Fair insight present (Psych) Judgement: Fair judgement present (Psych) Results AMB Urinalysis, Automated UA Leukoctes 70 Jus/uL Last Edit by [facility] on 10/27/23 09:50 UA Nitrite Negative Last Edit by [facility] on 10/27/23 09:50 UA Urobilinogen 0.2 mg/dL Last Edit by [email or web address] on 10/27/23 09:50 UA Protein 30 mg/dL Last Edit by [employer] on 10/27/23 09:50 UA pH 6.0 Last Edit by [employer] on 10/27/23 09:50 UA Blood 25 Jose F/uL Last Edit by [facility] on 10/27/23 09:50 UA Specific [place] 1.030 Last Edit by [employer] on 10/27/23 09:50 UA Ketone Negative Last Edit by [facility] on 10/27/23 09:50 UA Bilirubin 0 mg/dL Last Edit by [facility] on 10/27/23 09:50 UA Glucose 0 mg/dL Last Edit by [facility] on 10/27/23 09:50 Results Reviewed Results Reviewed: Laboratory Last Values Urine pH (Auto) 6.0 10/27/23 09:40 Specific [place] (Auto) 1.030 10/27/23 09:40 Urine Protein (Auto) 30 mg/dL 10/27/23 09:40 Glucose (UA)(Auto) 0 mg/dL 10/27/23 09:40 Urine Ketones (Auto) Negative 10/27/23 09:40 Urine Blood (Auto) 25 Jose F/uL 10/27/23 09:40 Urine Nitrite (Auto) Negative 10/27/23 09:40 Urine Bilirubin (Auto) 0 mg/dL 10/27/23 09:40 Urine Urobilinogen (Auto) 0.2 mg/dL 10/27/23 09:40 Leukocyte Esterase (Auto) 70 Jus/uL 10/27/23 09:40 Date of Service: 10/16/23 Procedure(s): US renal BI EXAMINATION: US RETROPERITONEAL LIMITED (RENAL ONLY) FINDINGS: RIGHT KIDNEY: 11.0 x 4.7 x 4.8 cm (SAG x AP x TRV). The kidney is normal in size, contour, and echogenicity. Renal cortical thickness is normal. No calculi or focal parenchymal lesions. No hydronephrosis. 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 LEFT KIDNEY: 10.5 x 6.2 x 6.0 cm (SAG x AP x TRV). The kidney is normal in size, contour, and echogenicity. Renal cortical thickness is normal. No calculi or focal parenchymal lesions. No hydronephrosis. Echogenic foci may be vascular in origin. IMPRESSION: 1. No hydronephrosis. 2. 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 Assessment & Plan Assessment & Plan (1) Elevated PSA: Code(s): R97.20 - Elevated prostate specific antigen [PSA] Category: Medical (2) Hydronephrosis: Code(s): N13.30 - Unspecified hydronephrosis Category: Medical (3) Erectile dysfunction: Code(s): N52.9 - Male erectile dysfunction, unspecified Category: Medical Plan In office urinalysis results reviewed with the patient today; as noted above. Recent renal ultrasound results reviewed with the patient today; as noted above. Recent PSA results reviewed with the patient today; as noted above. Discussed at length potential causes for bump/increase in PSA. Discussed redraw of PSA with no sex the night before, no caffeine morning of, and no heavy lifting 1-2 days prior. Patient currently denies any bothersome urinary issues or concerns. He is happy with his current voiding parameters. Continue p.r.n. sildenafil Follow-up in 1 month with lab to be completed prior; or sooner with any issues, concerns, and or questions. Orders: Orders AMB Urinalysis Automated 10/27/23 Z13.9 - Encounter for screening, unspecified Prostate Specific Antigen 10/27/23 R97.20 - Elevated prostate specific antigen [PSA] Patient Instructions: The patient had an opportunity to ask questions regarding the treatment plan. All questions were answered. Physical exam, labs, and imaging were discussed and reviewed in detail. As well as risks, benefits, and discussion of treatment choices. No major barriers to understanding were identified. The patient expressed understanding and agreement with the above treatment plan. The patient was made aware they should contact our office by phone for worsening of their current condition, the appearance of new symptoms, or with any questions or concerns. Compliance is encouraged with any medications and follow up testing that is ordered. It is a privilege to be allowed the opportunity to participate in? your urological care.? Again, if you have any questions or concerns If you have any questions or concerns please do not hesitate to contact me. The office is [phone]. This note is constructed using voice recognition software. While every effort has been made to ensure accuracy furniture upholstery mechanic errors may have been included. Yours sincerely, ALEXANDRA Crocker Coding Level of Care Code Est Pt Level 3 (14901) Diagnoses Elevated PSA R97.20 Hydronephrosis N13.30 Erectile dysfunction N52.9
== END 2023-10-27 09:58 | disposition home or self-care (01) ==
PROVIDERS: PCP Nurse Practitioner Family; Visit Provider Nurse Practitioner Family
DX: R97.20 Elevated prostate specific antigen [PSA] (principal); N13.30 Unspecified hydronephrosis; N52.9 Male erectile dysfunction, unspecified
CPT/HCPCS: 99213

== ENCOUNTER → 2023-10-27 09:27 | Outpatient (BNVA) | payer OTHER, SELFPAY | PROVIDERS: PCP Nurse Practitioner Family; Visit Provider Nurse Practitioner Family | DX: R97.20 Elevated prostate specific antigen [PSA] (principal); N13.30 Unspecified hydronephrosis; N52.9 Male erectile dysfunction, unspecified | CPT/HCPCS: 81003; 99212 ==

== ENCOUNTER 2023-11-23 12:58 | Outpatient (REF) | payer OTHER, SELFPAY ==
[2023-11-23 16:46] LABS: Prostate Specific Antigen 5.79 ng/mL (<0.05-4.0)
== END 2023-11-23 12:59 | disposition home or self-care (01) ==
LOC: HO.HMGCLDS 12:58
PROVIDERS: PCP Nurse Practitioner Family; Visit Provider Nurse Practitioner Family
DX: R97.20 Elevated prostate specific antigen [PSA] (principal)
CPT/HCPCS: 36415; 84153

== ENCOUNTER 2023-11-29 11:31 | Outpatient (AMB) | payer OTHER, SELFPAY ==
--- NOTE | 2023-11-29 11:24 | A.OFFVIS_ITS ---
Intake Visit Reasons: 1m/PSA Intake Note: Patient presents today for 1M follow up AND PSA PSA: 3.86 Urology Medications: Sildenafil Blood Thinner: none Allergies: none Benzene Still Utility Operator Required: No Accompanied by: Self / Same As Patient Allergies shellfish derived Allergy (Unknown, Verified 11/29/23 12:27) vomiting/hives Medication List - Last Reconciled 11/29/23 by ESTHER Crocker- albuterol sulfate 90 mcg/actuation (ProAir HFA) 2 puffs inhalation Q8H PRN sildenafil 100 mg PO DAILY PRN HPI Comments Details: Misael is a 58 year old male patient of Dr. Butler. Original appointment was made via telehealth however upon discussion with the patient over telehealth appointment discussion regarding potential causes for elevated PSA were reviewed and decision was made for in office appointment for WENDY. When asked he currently denies any bothersome urinary issues or concerns. He does report noting bladder pressure at times however is not currently experiencing this. Patient with a history of mild hydronephrosis and workup has included a renal ultrasound noting bilateral kidneys with no hydronephrosis, and or renal calculi. 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 In discussion with the patient today he reports to be doing and feeling well. Recent PSA results reviewed with the patient today as noted and trended below. PSAs: 11/02 0.8, 01/03 1.0, 11/04 1.1, 11/05 3.9, 12/05 5.8 Discussed increase/bump in PSA. Discussed at length potential causes for increase in PSA. WENDY performed left-side of prostate noted to be boggy otherwise no nodules or masses palpated. Discussed treatment for prostatitis. He reports to be happy with his erections with as needed sildenafil. In office urinalysis results reviewed with the patient today. He otherwise offers no other issues or concerns at this time. BUN: 11/30 20, 11/02 26, 08/03 21, 08/03 21, 01/03 23, 11/04 17, 11/04 19, 09/05 25, 11/05 13 CREATININE:11/30 0.93, 11/02 1.12, 08/03 1.31, 01/03 1.08, 11/04 1.01, 09/05 1.02, 11/05 0.96 PFSH Medical History Hypersomnia Snoring Anxiety Ventral hernia without obstruction or gangrene Cervical radiculopathy Surgical History History of ventral hernia repair (08/14/23) Hx of left knee surgery Hx of shoulder surgery Hx of fusion of cervical spine H/O colonoscopy History of lumbar fusion History of vasectomy Family History Father No problems noted. Mother Myocardial infarction CVD (cardiovascular disease) Sister Breast cancer Maternal Grandmother Myocardial infarction Maternal Grandfather No problems noted. Paternal Grandfather No problems noted. Paternal Grandmother No problems noted. Brother No problems noted. Son No problems noted. Son No problems noted. Daughter No problems noted. Daughter No problems noted. Sister No problems noted. Sister No problems noted. Sister No problems noted. Sister No problems noted. Sister No problems noted. Sister No problems noted. Sister No problems noted. 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 Current occupational exposures/hazards: No Cognitive needs: No Hearing needs: No Vision needs: No Review of Systems Const Reports no additional complaints Eyes Reports no additional complaints ENT Reports no additional complaints Card Reports no additional complaints Resp Reports no additional complaints GI Reports no additional complaints Reports as per HPI Musc Reports no additional complaints Neuro Reports no additional complaints Psych Reports no additional complaints Endo Reports no additional complaints Physical Exam Const General: cooperative, healthy appearing, comfortable, no acute distress, well developed, alert and awake Orientation/consciousness: patient oriented x3 Limitations: no limitations HEENT Head: Yes normal to inspection, Yes normocephalic and Yes atraumatic Eyes General: appearance normal, both eyes and all related structures Neck Neck: Yes normal visual inspection and Yes trachea midline Chest Chest palpation & inspection: normal inspection of the chest Resp Effort & Inspection: normal respiratory effort and able to speak in complete sentences Cardio Rate: regular rate GI Inspection: Yes normal to inspection Palpation (GI): Soft to palpation General: Yes no CVA tenderness Back/Spine/Pelvis Back: no CVA tenderness Neuro General: patient oriented x3 Extrem General: Yes normal to inspection Psych Appearance: grossly normal and well kempt Mental Status: mental status grossly normal Speech and movement: Normal speech and movement present and Clear speech present Affect: normal affect Attitude: cooperative Thought process: Normal thought process present Thought content: Normal thought content present Insight: Fair insight present (Psych) Judgement: Fair judgement present (Psych) Results AMB Urinalysis, Automated UA Leukoctes 0 Jus/uL Last Edit by [employer] on 11/29/23 15:30 UA Nitrite Negative Last Edit by [employer] on 11/29/23 15:30 UA Urobilinogen 0.2 mg/dL Last Edit by [employer] on 11/29/23 15:30 UA Protein 15 mg/dL Last Edit by [employer] on 11/29/23 15:30 UA pH 5.5 Last Edit by [employer] on 11/29/23 15:30 UA Blood 0 Jose F/uL Last Edit by [employer] on 11/29/23 15:30 UA Specific [employer] 1.030 Last Edit by [employer] on 11/29/23 15:30 UA Ketone Negative Last Edit by [employer] on 11/29/23 15:30 UA Bilirubin 0 mg/dL Last Edit by [employer] on 11/29/23 15:30 UA Glucose 0 mg/dL Last Edit by [employer] on 11/29/23 15:30 Assessment & Plan Assessment & Plan (1) Elevated PSA: Code(s): R97.20 - Elevated prostate specific antigen [PSA] Category: Medical (2) Prostatitis: Code(s): N41.9 - Inflammatory disease of prostate, unspecified Category: Medical Plan In office urinalysis results reviewed with the patient today; as noted above. Recent PSA results reviewed with the patient today Discussed at length potential causes of elevated PSA; this was discussed at length WENDY performed boggy prostate noted; discuss treatment for presumed prostatitis Start Bactrim as discussed and prescribed. Discussed importance of obtaining PSA 4-6 weeks status post completion of antibiotic therapy. He otherwise denies any bothersome urinary issues. He reports be happy with current voiding parameters. Follow-up in 6 weeks with lab to be completed prior; or sooner with any issues, concerns, and or questions. Orders: Orders PSA,Total (Free>4and<10) 4 Weeks N41.9 - Inflammatory disease of prostate, unspecified, R97.20 - Elevated prostate specific antigen [PSA] Medications: New sulfamethoxazole-trimethoprim 800-160 mg (Bactrim DS) 1 tab PO BID 14 days 28 tabs 0RF N39.0 - Urinary tract infection, site not specified Patient Instructions: The patient had an opportunity to ask questions regarding the treatment plan. All questions were answered. Physical exam, labs, and imaging were discussed and reviewed in detail. As well as risks, benefits, and discussion of treatment choices. No major barriers to understanding were identified. The patient expressed understanding and agreement with the above treatment plan. The patient was made aware they should contact our office by phone for worsening of their current condition, the appearance of new symptoms, or with any questions or concerns. Compliance is encouraged with any medications and follow up testing that is ordered. It is a privilege to be allowed the opportunity to participate in? your urological care.? Again, if you have any questions or concerns If you have any questions or concerns please do not hesitate to contact me. The office is [phone]. This note is constructed using voice recognition software. While every effort has been made to ensure accuracy parquet floor layer's helper errors may have been included. Yours sincerely, ALEXANDRA Crocker Coding Level of Care Code Est Pt Level 4 (65323) Diagnoses Elevated PSA R97.20 Prostatitis N41.9
== END 2023-11-29 15:58 | disposition home or self-care (01) ==
PROVIDERS: PCP Nurse Practitioner Family; Visit Provider Nurse Practitioner Family
DX: R97.20 Elevated prostate specific antigen [PSA] (principal); N41.9 Inflammatory disease of prostate, unspecified; Z13.9 Encounter for screening, unspecified
CPT/HCPCS: 99214

== ENCOUNTER → 2023-11-29 11:31 | Outpatient (BNVA) | payer OTHER, SELFPAY | PROVIDERS: PCP Nurse Practitioner Family; Visit Provider Nurse Practitioner Family | DX: R97.20 Elevated prostate specific antigen [PSA] (principal); N41.9 Inflammatory disease of prostate, unspecified | CPT/HCPCS: 81003; 99212 ==

== ENCOUNTER 2023-12-28 08:46 | Outpatient (AMB) | payer OTHER, SELFPAY ==
[2023-12-28 08:48] VITALS: BP 110/70; PULSE 76; O2SAT 98; BMI 29.1
--- NOTE | 2023-12-28 08:48 | MHC.PC.OV ---
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 Will order labs. Colon screen is up to date. PSA is up to date, sees urology. [facility] Medical History Hypersomnia Snoring Anxiety Ventral hernia without obstruction or gangrene Cervical radiculopathy Surgical History History of ventral hernia repair (08/14/23) Hx of left knee surgery Hx of shoulder surgery Hx of fusion of cervical spine H/O colonoscopy History of lumbar fusion History of vasectomy Family History Father No problems noted. Mother Myocardial infarction CVD (cardiovascular disease) Sister Breast cancer Maternal Grandmother Myocardial infarction Maternal Grandfather No problems noted. Paternal Grandfather No problems noted. Paternal Grandmother No problems noted. Brother No problems noted. Son No problems noted. Son No problems noted. Daughter No problems noted. Daughter No problems noted. Sister No problems noted. Sister No problems noted. Sister No problems noted. Sister No problems noted. Sister No problems noted. Sister No problems noted. Sister No problems noted. 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 1. Little interest or pleasure in doing things: not at all 2. Feeling down, depressed, or hopeless: several days 3. Trouble falling or staying asleep, or sleeping too much: not at all 4. Feeling tired or having little energy: not at all 5. Poor appetite or overeating: not at all 6. Feeling bad about yourself - or that you are a failure or have let yourself or your family down: not at all 7. Trouble concentrating on things, such as reading the newspaper or watching television: not at all 8. Moving or speaking so slowly that other people could have noticed. Or the opposite - being so fidgety or restless that you have been moving around a lot more than usual: not at all 9. Thoughts that you would be better off or of hurting yourself in some way: not at all Total score: 1 Depression Screening Interpretation: Negative Depression Screening Done: Yes 75886 - PHQ-9 Billing: Yes Source: Developed by Drs. Ned Ashraf, Renata Chris, Itz Ovalle and colleagues, with an educational pilar from [employer]. Thrive Questionnaire Date Thrive assessed: 12/28/23 I am a: Patient What is your living situation today?: I have a place to live, but I am worried about losing it in the future Within the past 12 months, did the food you bought not last and you didn't have the money to get more?: Often true Within the past 12 months, did you worry whether your food would run out before you got money to buy more?: Often true Do you have trouble paying for medicines?: No Do you have trouble getting transportation to medical appointments?: No Do you have trouble paying your heating and electricity bill?: I choose not to answer this question Do you have trouble taking care of your child, family member or friend?: No Do you have trouble with day-to-day activities such as bathing, preparing meals, shopping, managing finances, etc.?: No Are you currently unemployed and looking for a job?: Yes Are you interested in more education?: No Please select the resources that you would like help with: None Currently or been in a relationship where the following occur: I choose not to answer THRIVE Score: 3 AUDIT C Alcohol Use Questionnaire (AUDIT-C) 1. How often do you have a drink containing alcohol?: Never 3. How often do you have six or more drinks on one occasion?: Never Total Score: 0 Score Reviewed/Action Taken: Yes PIETER-7 AMB Questionnaire PIETER-7 Date PIETER - 7 assessed: 12/28/23 Feeling nervous, anxious, or on edge: 0 = Not at all Not being able to stop or control worryin = Not at all Worrying too much about different things: 1 = Several days Trouble relaxin = Not at all Being so restless that it is hard to sit still: 1 = Several days Becoming easily annoyed or irritable: 0 = Not at all Feeling afraid as if something awful might happen: 0 = Not at all Total PIETER-7 score (0-4 normal; 5-9 mild; 10-14 moderate; 15-21 severe): 2 Source: Developed by Drs. Ned Ashraf, Renata Chris, Itz Ovalle and colleagues, with an educational pilar from [employer]. PIETER-7 Assessment Billing PIETER-7 Assessment Tool: PIETER-7 Assessment 68327 Review of Systems Const Denies chills and Denies fever(s) Eyes Denies blurry vision ENT Denies vertigo, Denies dizziness and Denies sore throat Card Denies chest pain at rest, Denies chest pain with activity, Denies diaphoresis, Denies dyspnea and Denies dyspnea on exertion Resp Denies cough, Denies dyspnea, Denies dyspnea on exertion and Denies wheezing GI Denies abdominal pain, Denies melena, Denies hematochezia, Denies constipation, Denies diarrhea and Denies loose stools Denies hematuria Musc Denies numbness and Denies tingling Skin/Breast Denies lesions Neuro Denies vertigo, Denies dizziness, Denies numbness and Denies tingling Psych Denies anxiety, Denies depression, Denies homicidal ideation, Denies suicidal ideation and Denies other (substance abuse) Aller/Immun Denies wheezing Physical exam (Primary Care) Vital Signs: Last Vital Signs Pulse 76 12/28/23 08:48 BP 110/70 12/28/23 08:48 Pulse Ox 98 12/28/23 08:48 Oxygen Delivery Method Room Air 12/28/23 08:48 BMI result Body Mass Index 29.1 Tobacco/Smoking Status: Tobacco use Status Tobacco use date assessed 07/13/23 12/28/23 08:54 Patient Tobacco Use Status Current someday Tobacco 12/28/23 08:54 Tobacco use type Cigarette 12/28/23 08:54 e-Cigarette/Vaping Use Never Used 12/28/23 08:54 PHQ-9: PHQ-9 Score PHQ-9: Total score 1 12/28/23 09:23 Depression Screening Interpretation: Negative Thrive Assessment: Date of Thrive Assessment Date Thrive assessed 12/28/23 12/28/23 08:54 Currently or been in a relationship where the following occur: I choose not to answer Const General: cooperative Nutritional Appearance: well nourished Orientation/consciousness: patient oriented x3 HENMT Head: Yes normal to inspection, Yes normocephalic and Yes atraumatic Ears: TM's normal bilaterally Eyes General: appearance normal, both eyes and all related structures Alignment and Position: alignment normal and position normal Neck Neck: Yes normal visual inspection and Yes no lymphadenopathy Thyroid: Thyroid normal Resp Effort & Inspection: normal respiratory effort Auscultation: clear to auscultation bilaterally Cardio Rate: regular rate Rhythm: regular rhythm Heart sounds: S1 normal heart sound present, S2 normal heart sound present and no murmurs GI Palpation (GI): Soft to palpation and nontender Auscultation: normal bowel sounds Male General Exam: Yes normal external exam Penis: normal penis Scrotum: scrotum normal, testes descended bilaterally and no inguinal hernias Testes: no testicular mass Skin Rashes: no rashes Neuro General: patient oriented x3, moves all extremities, no focal motor deficits and deep tendon reflexes 2+ bilaterally Romberg Test: Negative Psych Appearance: grossly normal Mental Status: mental status grossly normal Speech and movement: Normal speech and movement present Affect: normal affect Attitude: cooperative Thought process: Normal thought process present Thought content: Normal thought content present Insight: Good insight present (Psych) Judgement: Good judgement present (Psych) Results AMB Hemoglobin A1c AMB Hemoglobin A1c Cancelled % Last Edit by Dre Sargent CMA on 12/28/23 09:24 AMB Hemoglobin A1c previously reported as 7.6 Dre Sargent 12/28/23 09:24 CANCELLED put in wrong patients chart Results Reviewed Results Reviewed: Laboratory Last Values Hgb A1c (Clinic) Cancelled 12/28/23 08:55 Assessment and Plan Assessment & Plan (1) Physical exam: Code(s): Z00.00 - Encounter for general adult medical examination without abnormal findings Plan: Labs ordered Plan The patient agreed to the use of a hospital medical biller for this encounter. Scribed for ALEXANDRA Kim by Erin Vidal hospital medical biller, on 12/28/2023 at 09:25 EST. Orders: Orders UA CC w/rflx Micro + Cult Today Z00.00 - Encounter for general adult medical examination without abnormal findings Lipid Panel Today Z00.00 - Encounter for general adult medical examination without abnormal findings Complete Blood Count Auto Diff Today Z00.00 - Encounter for general adult medical examination without abnormal findings Comprehensive [place]. Panel Fast Today Z00.00 - Encounter for general adult medical examination without abnormal findings TSH reflex Free T4 Today Z00.00 - Encounter for general adult medical examination without abnormal findings Medications: New albuterol sulfate 90 mcg/actuation (Ventolin HFA) 2 puffs inhalation Q6H PRN 8.5 grams 2RF shortness of breath or wheezing Discontinued albuterol sulfate 90 mcg/actuation (ProAir HFA) Discontinued Reason: Ancillary Entered New Order 2 puffs inhalation Q8H PRN 8.5 grams 4RF bronchospasm Coding Level of Care Code Est Pt Prev Care 40-64y(28120) Diagnoses Physical exam Z00.00 Additional Codes PIETER-7 Assessment Billing - PIETER-7 Assessment Tool: PIETER-7 Assessment 31542 ([id number])
== END 2023-12-28 09:33 | disposition home or self-care (01) ==
PROVIDERS: PCP Nurse Practitioner Family; Visit Provider Nurse Practitioner Family
DX: Z00.00 Encounter for general adult medical examination without abnormal findings (principal)
CPT/HCPCS: 99396

== ENCOUNTER 2024-01-10 14:03 | Outpatient (REF) | payer OTHER, SELFPAY ==
[2024-01-10 16:54] LABS: PSA,Total (Free>4and<10) 1.92 ng/mL (0.00-4.00)
== END 2024-01-10 14:04 | disposition home or self-care (01) ==
LOC: HO.HMGCLDS 14:03
PROVIDERS: PCP Nurse Practitioner Family; Visit Provider Nurse Practitioner Family
DX: N41.9 Inflammatory disease of prostate, unspecified (principal); R97.20 Elevated prostate specific antigen [PSA]
CPT/HCPCS: 36415; 84153

== ENCOUNTER 2024-01-12 11:39 | Outpatient (AMB) | payer OTHER, SELFPAY ==
--- NOTE | 2024-01-12 11:40 | A.OFFVIS_ITS ---
Intake Visit Reasons: 6w/PSA Intake Note: Patient presents today for tele visit follow up on: Elevated PSA PSA: 1.92 Urology Medications: Sildenafil Blood Thinner: none Allergies: none Alignment Technician Required: No Accompanied by: Self / Same As Patient Allergies shellfish derived Allergy (Unknown, Verified 01/12/24 11:52) vomiting/hives Medication List - Last Reconciled 01/12/24 by ALEXANDRA Crocker albuterol sulfate 90 mcg/actuation (Ventolin HFA) 2 puffs inhalation Q6H PRN sildenafil 100 mg PO DAILY PRN HPI Comments Details: Misael is a 58 year old male patient of Dr. Butler. He is being followed up on today via telehealth for his elevated PSA. In discussion with the patient today he reports since his last office visit here approximately 6 weeks ago he has since completed antibiotic therapy as prescribed. He currently denies any bothersome urinary issues or concerns. He does reports feeling bladder pressure had been experiencing has since subsided. We discussed at length prostatitis. Patient with a history of mild hydronephrosis however most recent renal ultrasound 11/05 noting bilateral kidneys with no hydronephrosis, and or renal calculi. 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 In discussion with the patient today he reports to be doing and feeling well. Recent PSA results reviewed with the patient today as noted and trended below. PSAs: 11/02 0.8, 01/03 1.0, 11/04 1.1, 11/05 3.9, 12/05 5.8, 01/05 1.9 Discussed decrease in PSA. He reports to be happy with his erections with as needed sildenafil. He otherwise offers no other issues or concerns at this time. BUN: 11/30 20, 11/02 26, 08/03 21, 08/03 21, 01/03 23, 11/04 17, 11/04 19, 09/05 25, 11/05 13 CREATININE:11/30 0.93, 11/02 1.12, 08/03 1.31, 01/03 1.08, 11/04 1.01, 09/05 1.02, 11/05 0.96 PFSH Medical History Hypersomnia Snoring Anxiety Ventral hernia without obstruction or gangrene Cervical radiculopathy Surgical History History of ventral hernia repair (08/14/23) Hx of left knee surgery Hx of shoulder surgery Hx of fusion of cervical spine H/O colonoscopy History of lumbar fusion History of vasectomy Family History Father No problems noted. Mother Myocardial infarction CVD (cardiovascular disease) Sister Breast cancer Maternal Grandmother Myocardial infarction Maternal Grandfather No problems noted. Paternal Grandfather No problems noted. Paternal Grandmother No problems noted. Brother No problems noted. Son No problems noted. Son No problems noted. Daughter No problems noted. Daughter No problems noted. Sister No problems noted. Sister No problems noted. Sister No problems noted. Sister No problems noted. Sister No problems noted. Sister No problems noted. Sister No problems noted. 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 Current occupational exposures/hazards: No Cognitive needs: No Hearing needs: No Vision needs: No Review of Systems Const Reports no additional complaints Eyes Reports no additional complaints ENT Reports no additional complaints Card Reports no additional complaints Resp Reports no additional complaints GI Reports no additional complaints Reports as per HPI Musc Reports no additional complaints Neuro Reports no additional complaints Psych Reports no additional complaints Endo Reports no additional complaints Physical Exam Const General: cooperative Orientation/consciousness: patient oriented x3 Resp Effort & Inspection: able to speak in complete sentences Neuro General: patient oriented x3 Psych Mental Status: mental status grossly normal Speech and movement: Clear speech present Attitude: cooperative Thought process: Normal thought process present Thought content: Normal thought content present Insight: Fair insight present (Psych) Judgement: Fair judgement present (Psych) Telehealth Telehealth Telehealth Platform: [facility] Location of provider rendering services: practice address Location of patient: address on file Patient Identification confirmed using: Name, : Yes Telehealth method: video Patient verbally consented to treatment: Yes Patient verbally consented to billing insurance company: Yes Patient informed of any privacy concerns related to visit: Yes Minutes spent on Phone/Video with Pt.: 15 Assessment & Plan Assessment & Plan (1) Hydronephrosis: Code(s): N13.30 - Unspecified hydronephrosis Category: Medical (2) Prostatitis: Code(s): N41.9 - Inflammatory disease of prostate, unspecified Category: Medical (3) Elevated PSA: Code(s): R97.20 - Elevated prostate specific antigen [PSA] Category: Medical Plan Recent PSA results reviewed with the patient today; as noted above. Discussed significant decrease in PSA. Discussed prostatitis; causes and affects. All questions were answered. Patient currently denies any bothersome urinary issues or concerns. He reports be happy with current voiding parameters. Continue as needed sildenafil Will continue with surveillance monitoring of BUN, creatinine and PSA Will obtain BUN, creatinine, and PSA in 6 months. Follow-up in 6 months with labs to be completed prior; or sooner with any issues, concerns, and or questions. Orders: Orders Prostate Specific Antigen Today N41.9 - Inflammatory disease of prostate, unspecified, R97.20 - Elevated prostate specific antigen [PSA] Blood Urea Nitrogen 6 Months N13.30 - Unspecified hydronephrosis Creatinine 6 Months N13.30 - Unspecified hydronephrosis Patient Instructions: The patient had an opportunity to ask questions regarding the treatment plan. All questions were answered. Physical exam, labs, and imaging were discussed and reviewed in detail. As well as risks, benefits, and discussion of treatment choices. No major barriers to understanding were identified. The patient expressed understanding and agreement with the above treatment plan. The patient was made aware they should contact our office by phone for worsening of their current condition, the appearance of new symptoms, or with any questions or concerns. Compliance is encouraged with any medications and follow up testing that is ordered. It is a privilege to be allowed the opportunity to participate in? your urological care.? Again, if you have any questions or concerns If you have any questions or concerns please do not hesitate to contact me. The office is [phone]. This note is constructed using voice recognition software. While every effort has been made to ensure accuracy deputy felony clerk errors may have been included. Yours sincerely, Nelly Duarte, SANDWICH MACHINE OPERATOR-BC Coding Level of Care Code Tele Est Pt Level 3 (66368) Diagnoses Hydronephrosis N13.30 Prostatitis N41.9 Elevated PSA R97.20 Time Spent (min) 15
== END 2024-01-12 12:42 | disposition home or self-care (01) ==
LOC: HO.HUSH 11:39
PROVIDERS: PCP Nurse Practitioner Family; Visit Provider Nurse Practitioner Family
DX: N13.30 Unspecified hydronephrosis (principal); N41.9 Inflammatory disease of prostate, unspecified; R97.20 Elevated prostate specific antigen [PSA]
CPT/HCPCS: 99213

== ENCOUNTER → 2024-01-12 11:39 | Outpatient (BNVA) | payer OTHER, SELFPAY | PROVIDERS: PCP Nurse Practitioner Family; Visit Provider Nurse Practitioner Family ==

== ENCOUNTER → 2024-01-22 11:19 | Outpatient (REF) | payer OTHER, SELFPAY | LOC: HO.SL 11:19 | PROVIDERS: PCP Nurse Practitioner Family; Visit Provider Psychiatry & Neurology Neurology | DX: R06.83 Snoring (principal); G47.10 Hypersomnia, unspecified | CPT/HCPCS: 95806 ==

== ENCOUNTER → 2024-01-23 15:15 | Outpatient (BNV) | payer OTHER, SELFPAY | PROVIDERS: PCP Nurse Practitioner Family; Visit Provider Psychiatry & Neurology Neurology | DX: G47.33 Obstructive sleep apnea (adult) (pediatric) (principal) | CPT/HCPCS: 95806 ==

== ENCOUNTER 2024-02-16 14:58 | Outpatient (AMB) | payer OTHER, SELFPAY ==
[2024-02-16 14:59] VITALS: BP 114/78; BMI 28.0
--- NOTE | 2024-02-16 14:59 | A.OFFVIS_ITS ---
Vital Signs 02/16/24 14:59 Height 5 ft 5 in Weight 168 lb BMI 28.0 BP 114/78 Blood Pressure Location Rt brachial Position Sitting Intake Visit Reasons: Follow Up Intake Note: Patient presents for follow up. Allergies shellfish derived Allergy (Unknown, Verified 01/12/24 11:52) vomiting/hives HPI Comments Details: 58-yr-old male presents for follow-up visit of sleep apnea. Pt underwent HST which revealed very mild JENNIFER w/ AHI 7/hr and O2 maricarmen 85% w/ avergae SpO2 93% and SpO2 < 88% x's 1.2 min Since, pt has tried to use home APAP 5-40eoH2E. Unfortunately, pt states he is not tolerating PAP tx, states the pressure is too strong, it is diffiuclt to sleeo with something on his face, and the first time he used it he felt tingling throughout his body. [facility] Compliance Report Usage 01/11/2024 - 02/09/2024 Usage days 2/30 days (7%) >= 4 hours 0 days (0%) < 4 hours 2 days (7%) Average usage (days used) 1 hours 36 minutes AirSense 11 AutoSet Serial number [id number] Mode AutoSet Min Pressure 5 cmH2O Max Pressure 20 cmH2O EPR Fulltime EPR level 2 Response Standard Therapy Pressure - cmH2O Median: 5.1 95th percentile: 9.2 Maximum: 9.5 Leaks - L/min Median: 4.2 95th percentile: 9.6 Maximum: 12.6 Events per hour AI: 1.7 HI: 1.0 AHI: 2.7 PFSH Medical History Hypersomnia Snoring Anxiety Ventral hernia without obstruction or gangrene Cervical radiculopathy Surgical History History of ventral hernia repair (08/14/23) Hx of left knee surgery Hx of shoulder surgery Hx of fusion of cervical spine H/O colonoscopy History of lumbar fusion History of vasectomy Family History Father No problems noted. Mother Myocardial infarction CVD (cardiovascular disease) Sister Breast cancer Maternal Grandmother Myocardial infarction Maternal Grandfather No problems noted. Paternal Grandfather No problems noted. Paternal Grandmother No problems noted. Brother No problems noted. Son No problems noted. Son No problems noted. Daughter No problems noted. Daughter No problems noted. Sister No problems noted. Sister No problems noted. Sister No problems noted. Sister No problems noted. Sister No problems noted. Sister No problems noted. Sister No problems noted. 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 Current occupational exposures/hazards: No Cognitive needs: No Hearing needs: No Vision needs: No Physical Exam Vital Signs: Last Vital Signs BP 114/78 02/16/24 14:59 BMI result Body Mass Index 28.0 Const General: no acute distress Orientation/consciousness: patient oriented x3 Resp Effort & Inspection: normal respiratory effort and able to speak in complete sentences Neuro General: patient oriented x3 Psych Mental Status: mental status grossly normal Speech and movement: Clear speech present Attitude: cooperative Results Reviewed Results Reviewed: PAP compliance report- see HPI Assessment & Plan Assessment & Plan (1) Mild obstructive sleep apnea: Comment: 01/23/24, HST: AHI 7/hr and O2 maricarmen 85% w/ avergae SpO2 93% and SpO2 < 88% x's 1.2 min Code(s): G47.33 - Obstructive sleep apnea (adult) (pediatric) Category: Medical (2) Hypersomnia: Code(s): G47.10 - Hypersomnia, unspecified Category: Medical Plan Reviewed HST results- mild JENNIFER. Encouraged pt to try APAP again, will adjust PAP settings form APAP 5-20 cmH2O w/ EPR 2 to APAP 5-8cmH2O w/ EPR 3, in hopes this improves PAP tolerance. Advised pt to notify us if this is not effective, we can consider more conservative tx's for mild JENNIFER and daytime sleepiness- such as oral appliances, referral to ENT, etc. Clean CPAP machine and supplies routinely. Change CPAP supplies routinely. Pt to contact us or respiratory company with any questions or concerns. Pt to follow-up in 6 months or sooner prn. Coding Level of Care Code Est Pt Level 3 (74079) Diagnoses Mild obstructive sleep apnea G47.33 Hypersomnia G47.10
== END 2024-02-16 15:51 | disposition home or self-care (01) ==
PROVIDERS: PCP Nurse Practitioner Family; Visit Provider Nurse Practitioner Family
DX: G47.33 Obstructive sleep apnea (adult) (pediatric) (principal); G47.10 Hypersomnia, unspecified
CPT/HCPCS: 99213

== ENCOUNTER → 2024-02-16 14:58 | Outpatient (BNVA) | payer OTHER, SELFPAY | PROVIDERS: PCP Nurse Practitioner Family; Visit Provider Nurse Practitioner Family | DX: G47.33 Obstructive sleep apnea (adult) (pediatric) (principal); G47.10 Hypersomnia, unspecified; Z99.89 Dependence on other enabling machines and devices | CPT/HCPCS: 99212 ==

== ENCOUNTER 2024-07-12 09:17 | Outpatient (REF) | payer OTHER, SELFPAY ==
--- OUTSIDE RECORDS SUMMARY | 2024-07-12 09:55 | XMS_ITS | Patient Health Record ---
Author Organization [facility] Address [address] [place] [address] Care Team Providers Care Cupola Patcher Name Role Phone KIKI WALTER Primary Care Provider Ned Gupta [phone] ALLERGIES Allergen (clinical drug ingredient) Drug/Non Drug Allergy documented on EMR Reaction Allergy Type Onset Date Status Shellfish (FN) shell fish (uncoded) Unknown Allergy Active REASON FOR REFERRAL No Information MEDICATIONS Medication SIG (Take, Route, Frequency, Duration) Notes Start Date End Date Status traMADol HCl 50 MG (Schedule IV Drug) t delroy 1 tablet by mouth three times a day if needed Oral for 30 Active Atorvastatin Calcium 10 MG TAKE ONE TABL ET EVERY DAY Oral for 30 Active Meclizine HCl 25 MG TAKE ONE TABLET EVER Y DAY NEEDED Oral for 20 Active ProAir HFA 108 (90 Base) MCG/ACT INHALE TWO PUFFS THREE TIMES DAILY NEEDED Inhalation for 33 Active Cyclobenzaprine HCl 10 MG TAKE ONE TABLE T BY MOUTH AT BEDTIME NEEDED Oral for 30 Active Vitamin D Active Nortriptyline HCl 50 MG Orally Active MiraLax (colon prep) 8.3 ounce ((238) grams mixed with Gatorade or Crystal Light orally begin at 5:00 p.m. the day before the procedure for 1 day 01/22/2017 Active Dulcolax (colon prep) 5 MG take at 3:00 p.m and 7:00p.m. Orally two tablets twice a day for one day for 1 day 01/22/2017 Active SOCIAL HISTORY Tobacco Use: Social History Observation Description Date Details (start date - stop date) Current Smoker NA - NA Sex Assigned At : Social History Observation Description Sex Assigned At Unknown Tobacco Use/Smoking Question Answer Notes Patient is a current smoker How often do you smoke cigarettes? some days, bu t not every day How many cigarettes a day do you smoke? 5 or les s Alcohol Screen Question Answer Notes Did you have a drink containing alcohol in the p ast year? No Points 0 Interpretation Negative PROBLEMS Problem Type ICD Code Onset Dates Problem Status W/U Status Risk SNOMED Code Notes Problem Encounter for screening for malignant neoplasm of colon (Z12.11) Active confirmed 682796117 Problem Blood in stool (K92.1) Active confirmed 02570720 PLAN OF TREATMENT Future Test Test Name Order Date COLONOSCOPY 01/19/2017 Insurance Providers Payer Name Payer Address Payer Phone Subscriber Number Group Number Insured Name Patient Relationship to Insured Coverage Start Date Coverage End Date [employer] [address] [place] [address] [phone] [id number] ARGENTINA TINOCO Self - patient is the insured MEDICAL (GENERAL) HISTORY Medical History History ICD Code Asthma Denies GA,DM,CVA,Lung disease,renal dise ase Hyperlipidemia Arthritis Back pain Negative colonoscopy in 12/[address] Bill---just internal and external hemorrhoids Surgical History Surgery Date(Month/Year) lower back surgery fusion 2003 cervical fusion 2006 left knee arthroscopy 2007 shoulder arthroscopy 2008
--- OUTSIDE RECORDS SUMMARY | 2024-07-12 09:55 | XMS_ITS | Clinical Summary ---
Author Organization [employer] Address [address] [facility] [address] [place] [address] Care Team Providers Care Pipe Line Gauger Name Role Phone Unavailable Primary Care Provider Unavailabl e Allergies Active Allergy Reactions Criticality Noted Date Comments Iodine 08/11/2022 Shellfish-Derived Products Medications No known medications Social History Tobacco Use Types Packs/Day Years Used Date Smoking Tobacco: Never Smokeless Tobacco: Never Tobacco Cessation:Counseling Given: Not Answered Alcohol Use Standard Drinks/Week Comments Defer 0 (1 standard drink = 0.6 oz pur e alcohol) Sex and Gender Information Value Date Recorded Sex Assigned at Male 03/14/2022 10:23 AM EDT Legal Sex Male 10:23 AM EDT Gender Identity Male 08/11/2022 8:22 AM EDT Sexual Orientation Don't know 08/11/2022 8: 22 AM EDT Last Filed Vital Signs Vital Sign Reading Time Taken Comments Blood Pressure 132/81 09/01/2022 3:29 PM EDT Pulse - - Temperature - - Respiratory Rate - - Oxygen Saturation - - Inhaled Oxygen Concentration - - Weight - - Height - - Body Mass Index - - Plan of Treatment Health Maintenance Due Date Last Done Comments CT Colonography 1965 Colonoscopy 1965 Colorectal Cancer Screening 1965 Dental Oral Exam 1965 Dental Prophylaxis 1965 Dental X-Ray: Bitewings 1965 Dental X-Ray: Full Mouth 1965 Depression Screening 1965 FIT DNA/Cologuard 1965 FIT 1965 FOBT 1965 HIV Screening 1965 Lipid Panel 1965 SDOH Screening 1965 Sigmoidoscopy 1965 Alcohol/Substance Use Screening 1977 Hepatitis C Screening 10/19/1983 DTaP/Tdap/Td Vaccines (1 - Tdap) 1984 Hepatitis B Vaccines (1 of 3 - 19+ 3-dose series) 1984 Pneumococcal Vaccine: 50+ Ye ars (1 of 1 - PCV) 10/19/2015 Zoster Vaccines (1 of 2) 10/19/2015 Tobacco Screening 09/02/2023 09/01/2022 COVID-19 Vaccine (1 - 2023-2 5 season) 2024 Influenza Vaccine (#1) 2024 RSV Patients and Pa tients Aged 60 years or older (1 - 1-dose 75+ series) 2040 HIB Vaccines Aged Out No longer eligi ble based on patient's age to complete this topic HPV Vaccines Aged Out No longer eligi ble based on patient's age to complete this topic Hepatitis A Vaccines Aged Out No long er eligible based on patient's age to complete this topic IPV Vaccines Aged Out No longer eligi ble based on patient's age to complete this topic Meningococcal Vaccine Aged Out No tawanna gomez eligible based on patient's age to complete this topic RSV under 20 months Aged Out No longe r eligible based on patient's age to complete this topic Rotavirus Vaccines Aged Out No longer eligible based on patient's age to complete this topic Insurance DENTAL - HSN [place] ([place] [id number] [place]
--- OUTSIDE RECORDS SUMMARY | 2024-07-12 09:55 | XMS_ITS | Encounter Summary ---
Author Organization [employer] Address [address] [facility] [address] [place] [address] Care Team Providers Care Fender Mechanic Apprentice Name Role Phone Unavailable Primary Care Provider Unavailabl e Encounter Details Date Type Department Care Team (Latest Contact Info) Description 08/08/2018 Abstract [facility] CONVERSIONS Dental, Provider, DDS Social History Tobacco Use Types Packs/Day Years Used Date Smoking Tobacco: Never Assessed Sex and Gender Information Value Date Recorded Sex Assigned at Male 03/14/2022 10:23 AM EDT Legal Sex Male 10:23 AM EDT Gender Identity Male 08/11/2022 8:22 AM EDT Sexual Orientation Don't know 08/11/2022 8: 22 AM EDT documented as of this encounter Plan of Treatment Not on file documented as of this encounter Visit Diagnoses Not on filedocumented in this encounter
[2024-07-12 13:58] LABS: Blood Urea Nitrogen 19 mg/dL (9-16); Estimated Glomerular Filt Rate > 60
[2024-07-12 14:17] LABS: Prostate Specific Antigen 0.73 ng/mL (<0.05-4.0)
== END 2024-07-12 09:18 | disposition home or self-care (01) ==
LOC: HO.HMGCLDS 09:17
PROVIDERS: PCP Nurse Practitioner Family; Visit Provider Nurse Practitioner Family
DX: N13.30 Unspecified hydronephrosis (principal); R97.20 Elevated prostate specific antigen [PSA]; N41.9 Inflammatory disease of prostate, unspecified
CPT/HCPCS: 36415; 82565; 84153; 84520

== ENCOUNTER 2024-07-15 13:29 | Outpatient (AMB) | payer OTHER, SELFPAY ==
--- NOTE | 2024-07-15 13:31 | MHC.OFFVIS ---
Intake Visit Reasons: 6M w/labs Intake Note: Patient presents today for follow up on: Elevated PSA PSA: 0.73 BUN: 19 CREA: 0.82 Urology Medications: Sildenafil (not taking) Blood Thinner: none Allergies: none Oil Well Service Operator Helper Required: No Accompanied by: Self / Same As Patient Allergies shellfish derived Allergy (Unknown, Verified 07/15/24 14:01) vomiting/hives Medication List - Last Reconciled 07/15/24 by JESSICA CrockerP- albuterol sulfate 90 mcg/actuation (Ventolin HFA) 2 puffs inhalation Q6H PRN sildenafil 100 mg PO DAILY PRN HPI Comments Details: Misael is a 58 year old male patient of Dr. Butler. He presents to the office today for follow-up of his elevated PSA. In discussion with the patient today he reports to be doing and feeling well. He discusses his recent employment at [employer] in [place]. Patient also with a history of mild hydronephrosis however most recent renal ultrasound 11/05 noting bilateral kidneys with no hydronephrosis, and or renal calculi. 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 In discussion with the patient today he reports to be doing and feeling well. Recent PSA, BUN, and creatinine results reviewed with the patient today as noted and trended below. PSAs: 11/02 0.8, 01/03 1.0, 11/04 1.1, 11/05 3.9, 12/05 5.8, 01/05 1.9, 07/09 0.7 Discussed decrease in PSA. He currently denies any bothersome urinary issues or concerns. He denies urinary urgency, urinary frequency, incontinence, nocturia, hematuria, dysuria, foul smelling urine, changes to urinary stream, flank pain, fever, and or chills. He is happy with his current voiding parameters. He reports he is not currently taking p.r.n. sildenafil as he is not sexually active however did report adequate erections when using it. He otherwise offers no other issues or concerns at this time. BUN: 11/30 20, 11/02 26, 08/03 21, 08/03 21, 01/03 23, 11/04 17, 11/04 19, 09/05 25, 11/05 13, 07/09 19 CREATININE:11/30 0.93, 11/02 1.12, 08/03 1.31, 01/03 1.08, 11/04 1.01, 09/05 1.02, 11/05 0.96, 07/09 0.82 PFSH Medical History Hypersomnia Snoring Anxiety Ventral hernia without obstruction or gangrene Cervical radiculopathy Surgical History History of ventral hernia repair (08/14/23) Hx of left knee surgery Hx of shoulder surgery Hx of fusion of cervical spine H/O colonoscopy History of lumbar fusion History of vasectomy Family History Father No problems noted. Mother Myocardial infarction CVD (cardiovascular disease) Sister Breast cancer Maternal Grandmother Myocardial infarction Maternal Grandfather No problems noted. Paternal Grandfather No problems noted. Paternal Grandmother No problems noted. Brother No problems noted. Son No problems noted. Son No problems noted. Daughter No problems noted. Daughter No problems noted. Sister No problems noted. Sister No problems noted. Sister No problems noted. Sister No problems noted. Sister No problems noted. Sister No problems noted. Sister No problems noted. 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 Current occupational exposures/hazards: No Cognitive needs: No Hearing needs: No Vision needs: No Review of Systems Const Reports no additional complaints Eyes Reports no additional complaints ENT Reports no additional complaints Card Reports no additional complaints Resp Reports no additional complaints GI Reports no additional complaints Reports as per HPI Musc Reports no additional complaints Neuro Reports no additional complaints Psych Reports no additional complaints Endo Reports no additional complaints Physical Exam Const General: cooperative, healthy appearing, comfortable, no acute distress, well developed, alert and awake Orientation/consciousness: patient oriented x3 Limitations: no limitations HEENT Head: Yes normal to inspection, Yes normocephalic and Yes atraumatic Eyes General: appearance normal, both eyes and all related structures Neck Neck: Yes normal visual inspection and Yes trachea midline Chest Chest palpation & inspection: normal inspection of the chest Resp Effort & Inspection: normal respiratory effort and able to speak in complete sentences Cardio Rate: regular rate GI Inspection: Yes normal to inspection Palpation (GI): Soft to palpation General: Yes no CVA tenderness Back/Spine/Pelvis Back: no CVA tenderness Neuro General: patient oriented x3 Extrem General: Yes normal to inspection Psych Appearance: grossly normal and well kempt Mental Status: mental status grossly normal Speech and movement: Normal speech and movement present and Clear speech present Affect: normal affect Attitude: cooperative Thought process: Normal thought process present Thought content: Normal thought content present Insight: Fair insight present (Psych) Judgement: Fair judgement present (Psych) Results AMB Urinalysis, Automated UA Leukoctes 0 Jus/uL Last Edit by Zeinab Garcia on 07/15/24 13:45 UA Nitrite Negative Last Edit by Zeinab Garcia on 07/15/24 13:45 UA Urobilinogen 0.2 mg/dL Last Edit by Zeinab Garcia on 07/15/24 13:45 UA Protein 15 mg/dL Last Edit by Zeinab Garcia on 07/15/24 13:45 UA pH 6.0 Last Edit by Zeinab Garcia on 07/15/24 13:45 UA Blood 0 [place] F/uL Last Edit by Zeinab Garcia on 07/15/24 13:45 UA Specific Sedan 1.030 Last Edit by Zeinab Garcia on 07/15/24 13:45 UA Ketone Negative Last Edit by Zeinab Garcia on 07/15/24 13:45 UA Bilirubin 0 mg/dL Last Edit by Zeinab Garcia on 07/15/24 13:45 UA Glucose 0 mg/dL Last Edit by Zeinab Garcia on 07/15/24 13:45 Results Reviewed Results Reviewed: Laboratory Last Values Urine pH (Auto) 6.0 07/15/24 13:43 Specific Sedan (Auto) 1.030 07/15/24 13:43 Urine Protein (Auto) 15 mg/dL 07/15/24 13:43 Glucose (UA)(Auto) 0 mg/dL 07/15/24 13:43 Urine Ketones (Auto) Negative 07/15/24 13:43 Urine Blood (Auto) 0 [place] F/uL 07/15/24 13:43 Urine Nitrite (Auto) Negative 07/15/24 13:43 Urine Bilirubin (Auto) 0 mg/dL 07/15/24 13:43 Urine Urobilinogen (Auto) 0.2 mg/dL 07/15/24 13:43 Leukocyte Esterase (Auto) 0 Jus/uL 07/15/24 13:43 Assessment & Plan Assessment & Plan (1) Elevated PSA: Code(s): R97.20 - Elevated prostate specific antigen [PSA] Category: Medical (2) Prostatitis: Code(s): N41.9 - Inflammatory disease of prostate, unspecified Category: Medical Plan In office urinalysis results reviewed with the patient today; as noted above. Recent PSA, BUN, and creatinine results reviewed with the patient today; as noted above He denies any bothersome urinary issues. He reports be happy with current voiding parameters. Follow-up in 6 months; or sooner with any issues, concerns, and or questions. Orders: Orders AMB Urinalysis Automated Today Z13.9 - Encounter for screening, unspecified Patient Instructions: The patient had an opportunity to ask questions regarding the treatment plan. All questions were answered. Physical exam, labs, and imaging were discussed and reviewed in detail. As well as risks, benefits, and discussion of treatment choices. No major barriers to understanding were identified. The patient expressed understanding and agreement with the above treatment plan. The patient was made aware they should contact our office by phone for worsening of their current condition, the appearance of new symptoms, or with any questions or concerns. Compliance is encouraged with any medications and follow up testing that is ordered. It is a privilege to be allowed the opportunity to participate in? your urological care.? Again, if you have any questions or concerns If you have any questions or concerns please do not hesitate to contact me. The office is [phone]. This note is constructed using voice recognition software. While every effort has been made to ensure accuracy bindery assistant errors may have been included. Yours sincerely, ALEXANDRA Crocker Coding Level of Care Code Est Pt Level 3 (33994) Diagnoses Elevated PSA R97.20 Prostatitis N41.9
--- OUTSIDE RECORDS SUMMARY | 2024-07-15 15:55 | XMS_ITS | Encounter Summary ---
Author Organization [employer] Address [address] [facility] [address] [place] [address] Care Team Providers Care Health And Wellness Coordinator Name Role Phone Unavailable Primary Care Provider Unavailabl e Encounter Details Date Type Department Care Team (Latest Contact Info) Description 08/08/2018 Abstract [facility] CONVERSIONS Dental, Provider, DDS Social History [...]
--- OUTSIDE RECORDS SUMMARY | 2024-07-15 15:55 | XMS_ITS | Clinical Summary ---
Author Organization [employer] Address [address] [facility] [address] [place] [address] Care Team Providers Care Police Reserves Commander Name Role Phone Unavailable Primary Care Provider [...] Insurance DENTAL - HSN PARTIAL ([place] [id number]
--- OUTSIDE RECORDS SUMMARY | 2024-07-15 15:56 | XMS_ITS | Patient Health Record ---
Author Organization [facility] Address [address] [place] [address] Care Team Providers Care Customs Manager Name Role Phone KIKI WALTER Primary Care Provider Ned Gupta [phone] ALLERGIES Allergen (clinical drug ingredient) Drug/Non Drug [...] malignant neoplasm of colon (Z12.11) Active confirmed [id number] Problem Blood in stool (K92.1) Active confirmed [id number] PLAN OF TREATMENT Future Test Test Name Order Date COLONOSCOPY 01/19/2017 Insurance Providers Payer Name Payer Address Payer Phone Subscriber Number Group Number Insured Name Patient Relationship to Insured Coverage Start Date Coverage End Date [facility] Plan [address] [place] [address] [phone] [id number] ARGENTINA TINOCO Self - patient is the insured MEDICAL (GENERAL) HISTORY Medical History History ICD Code Asthma Denies LA,DM,CVA,Lung disease,renal dise ase Hyperlipidemia Arthritis Back pain Negative colonoscopy in 12/[address] Bill---just internal and external hemorrhoids Surgical History Surgery Date(Month/Year) lower back surgery fusion 2003 cervical fusion 2006 left knee arthroscopy 2007 shoulder arthroscopy 2008
== END 2024-07-15 14:03 | disposition home or self-care (01) ==
PROVIDERS: PCP Nurse Practitioner Family; Visit Provider Nurse Practitioner Family
DX: R97.20 Elevated prostate specific antigen [PSA] (principal); N41.9 Inflammatory disease of prostate, unspecified; Z13.9 Encounter for screening, unspecified
CPT/HCPCS: 99213

== ENCOUNTER → 2024-07-15 13:29 | Outpatient (BNVA) | payer OTHER, SELFPAY | PROVIDERS: PCP Nurse Practitioner Family; Visit Provider Nurse Practitioner Family | DX: R97.20 Elevated prostate specific antigen [PSA] (principal); N41.9 Inflammatory disease of prostate, unspecified | CPT/HCPCS: 81003; 99212 ==

== ENCOUNTER 2024-09-03 14:32 | Outpatient (AMB) | payer OTHER, SELFPAY ==
[2024-09-03 14:40] VITALS: BP 126/72; PULSE 91; O2SAT 96; BMI 28.7
--- NOTE | 2024-09-03 14:40 | A.OFFVIS_ITS ---
Vital Signs 09/03/24 14:40 Height 5 ft 5 in Weight 172 lb 4 oz BMI 28.7 BP 126/72 Blood Pressure Location Lt brachial Position Sitting Pulse 91 Pulse Source Pulse Oximeter Pulse Oximetry (%) 96 Oxygen Delivery Method Room Air Intake Visit Reasons: Follow Up Intake Note: Patient presents follow up JENNIFER. Compliance in chart. Allergies shellfish derived Allergy (Unknown, Verified 09/03/24 14:42) vomiting/hives Medication List - Last Reconciled 09/03/24 by ESTHER Foster albuterol sulfate 90 mcg/actuation (Ventolin HFA) 2 puffs inhalation Q6H PRN sildenafil 100 mg PO DAILY PRN HPI Comments Details: 58-yr-old male presents for follow-up visit of sleep apnea. 01/23/2024, HST revealed very mild JENNIFER w/ AHI 7/hr and O2 maricarmen 85% w/ avergae SpO2 93% and SpO2 < 88% x's 1.2 min, and mild snoring for 7% of study time. Since the last visit, patient tried again to use CPAP. He states it causes asthma and respiratory symptoms. States this interferes with his ability to exercise and go to the gym. Thus, he stopped using it. He denies seasonal or environmental allergies. 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 He endorses chronic nasal congestion, frequently has to blow his nose. Does try to use breathe right strips at night and saline spray prior to bedtime, which helps him breathe through his nose more at night rather than his mouth. When he is breathing through his mouth more, he has nocturnal dry mouth. [facility] Medical History Hypersomnia Snoring Anxiety Ventral hernia without obstruction or gangrene Cervical radiculopathy Surgical History History of ventral hernia repair (08/14/23) Hx of left knee surgery Hx of shoulder surgery Hx of fusion of cervical spine H/O colonoscopy History of lumbar fusion History of vasectomy Family History Father No problems noted. Mother Myocardial infarction CVD (cardiovascular disease) Sister Breast cancer Maternal Grandmother Myocardial infarction Maternal Grandfather No problems noted. Paternal Grandfather No problems noted. Paternal Grandmother No problems noted. Brother No problems noted. Son No problems noted. Son No problems noted. Daughter No problems noted. Daughter No problems noted. Sister No problems noted. Sister No problems noted. Sister No problems noted. Sister No problems noted. Sister No problems noted. Sister No problems noted. Sister No problems noted. 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 Current occupational exposures/hazards: No Cognitive needs: No Hearing needs: No Vision needs: No Physical Exam Vital Signs: Last Vital Signs Pulse 91 09/03/24 14:40 BP 126/72 09/03/24 14:40 Pulse Ox 96 09/03/24 14:40 Oxygen Delivery Method Room Air 09/03/24 14:40 BMI result Body Mass Index 28.7 Const General: no acute distress Orientation/consciousness: patient oriented x3 HEENT Other: Mild nasal congestion Resp Effort & Inspection: normal respiratory effort and able to speak in complete sentences Neuro General: patient oriented x3 Psych Mental Status: mental status grossly normal Speech and movement: Clear speech present Attitude: cooperative Assessment & Plan Assessment & Plan (1) Mild obstructive sleep apnea: Comment: 01/23/24, HST: AHI 7/hr and O2 maricarmen 85% w/ avergae SpO2 93% and SpO2 < 88% x's 1.2 min Code(s): G47.33 - Obstructive sleep apnea (adult) (pediatric) Category: Medical (2) Snoring: Code(s): R06.83 - Snoring Category: Medical (3) Nasal congestion: Code(s): R09.81 - Nasal congestion Category: Medical Plan Unfortunately, patient has not tolerated PAP therapy. As obstructive sleep apnea is mild inpatient is not currently overweight, he would not be a candidate for Zepbound therapy or inspire implantation. Thus, as his obstructive sleep apnea is mild, he may continue to hold PAP therapy. He may continue to use saline nasal sprays and breathe right strips at night. We will request allergy consult, to further evaluate patient's chronic nasal congestion, as well as his reports of asthma and respiratory difficulties following PAP therapy. In the meantime, will provide pt an epi-pen and advised him to inform any restaurant of his food allergy. Will follow-up upon review of above and patient to follow-up in clinic in 6 months or sooner prn. Orders: Referrals Allergy & Immunology Referral G47.33 - Obstructive sleep apnea (adult) (pediatric), R09.81 - Nasal congestion, Z91.013 - Allergy to seafood Medications: New epinephrine (EpiPen 2-Eric) for 2 doses, and call 911. 0.3 mg (0.3 mL) IM Q15M PRN 2 ea 0RF anaphylaxis MDD 2 doses Z91.013 - Allergy to seafood Coding Level of Care Code Est Pt Level 3 (98633) Diagnoses Mild obstructive sleep apnea G47.33 Snoring R06.83 Nasal congestion R09.81
--- OUTSIDE RECORDS SUMMARY | 2024-09-03 17:22 | XMS_ITS | Encounter Summary ---
Author Organization [employer] Address [address] [facility] 7[address] [place] [address] Care Team Providers Care Bakery Associate Name Role Phone Unavailable Primary Care Provider Unavailabl e Encounter Details Date Type Department Care Team (Latest Contact Info) Description 08/08/2018 Abstract [facility] CONVERSIONS Dental, Provider, DDS Social History [...]
--- OUTSIDE RECORDS SUMMARY | 2024-09-03 17:22 | XMS_ITS | Clinical Summary ---
Author Organization [employer] Address [address] [facility] [address] [place] [address] Care Team Providers Care Roll Contour Grinder Name Role Phone Unavailable Primary Care Provider [...] patient's age [id number] DENTAL - HSN PARTIAL (MEDICAID)
--- OUTSIDE RECORDS SUMMARY | 2024-09-03 17:23 | XMS_ITS | Patient Health Record ---
Author Organization [facility] Address [address] [place] [address] Care Team Providers Care Chorus Dancer Name Role Phone KIKI WALTER Primary Care Provider Ned Gupta [phone] Allergies Allergen (clinical drug ingredient) Drug/Non Drug Allergy documented on EMR Reaction Allergy Type Onset Date Status Shellfish (FN) shell fish (uncoded) Unknown Allergy Active Reason For Referral No Information Medications Medication SIG (Take, Route, Frequency, Duration) Notes [...] one day for 1 day 01/22/2017 Active Social History Tobacco Use: Social History Observation Description Date Details (start date - stop date) Current Smoker NA - NA Tobacco Use/Smoking Question Answer Notes Patient is a current smoker How often do you smoke cigarettes? some days, bu t not every day How many cigarettes a day do you smoke? 5 or les s Alcohol Screen Question Answer Notes Did you have a drink containing alcohol in the p ast year? No Points 0 Interpretation Negative Section Notes: Smoker 5 cigs QD; no alcohol Problems Problem Type SNOMED Code ICD Code Onset Dates Problem Status W/U Status Risk Notes Problem [id number] Encounter for screening for malignant neoplasm of colon (Z12.11) Active confirmed Problem [id number] Blood in stool (K92.1) Active confirmed Plan Of Treatment Future Test Test Name Order Date COLONOSCOPY 01/19/2017 Insurance Providers Payer Name Payer Address Payer Phone Subscriber Number Group Number Insured Name Patient Relationship to Insured Coverage Start Date Coverage End Date [facility] Plan [address] [place] [address] [id number] ARGENTINA TINOCO Self - patient is the insured Medical (General) History Medical History History ICD Code Asthma Denies VA,DM,CVA,Lung disease,renal dise ase Hyperlipidemia Arthritis Back pain Negative colonoscopy in 12/[address] Bill---just internal and external hemorrhoids Surgical History Surgery Date(Month/Year) lower back surgery fusion 2002 cervical fusion 2006 left knee arthroscopy 2007 shoulder arthroscopy 2008
== END 2024-09-03 15:06 | disposition home or self-care (01) ==
LOC: HO.HSMS 14:33
PROVIDERS: PCP Nurse Practitioner Family; Visit Provider Nurse Practitioner Family
DX: G47.33 Obstructive sleep apnea (adult) (pediatric) (principal); R06.83 Snoring; R09.81 Nasal congestion
CPT/HCPCS: 99213

== ENCOUNTER → 2024-09-03 14:32 | Outpatient (BNVA) | payer OTHER, SELFPAY | PROVIDERS: PCP Nurse Practitioner Family; Visit Provider Nurse Practitioner Family | DX: G47.33 Obstructive sleep apnea (adult) (pediatric) (principal); R06.83 Snoring; R09.81 Nasal congestion | CPT/HCPCS: 99212 ==

== ENCOUNTER 2024-12-30 11:03 | Outpatient (AMB) | payer OTHER, SELFPAY ==
--- NOTE | 2024-12-30 11:07 | MHC.PC.OV ---
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- albuterol sulfate 90 mcg/actuation (Ventolin HFA) 2 puffs inhalation Q6H PRN epinephrine (EpiPen 2-Eric) 0.3 mg (0.3 mL) IM Q15M PRN MDD 2 doses sildenafil 100 mg PO DAILY PRN Tobacco use date assessed: 12/30/24 Dental Screening Dental Screen Date: 12/30/24 Did you have a dental visit in the last 12 months?: Yes Did you have a dental problem in the last 6 months where you did not have access to dental care?: No Was dental information given to patient?: Patient has dentist HPI PE*Confirmed 12/27 DCR HPI Details History of Present Illness The patient is a 59-year-old male presenting for a physical examination Health Maintenance - PSA screening planned -colon screen is up to date Social History Review of Systems - Cardiovascular: Denies chest pain - Respiratory: Denies shortness of breath - Gastrointestinal: Denies abdominal pain, blood in stool, constipation, diarrhea - Psychiatric: Denies suicidal ideation, harm ideation - Genitourinary: Denies urinary problems Physical Exam General: Cooperative, healthy appearing, comfortable, no acute distress and well developed Orientation: Patient oriented x3 Limitations: No limitations Head: Normal to inspection Ears: Hearing grossly normal bilaterally Nose: Normal external nose present Face and sinus: Normal facial exam Eyes: Appearance normal, both eyes and all related structures Neck: Normal visual inspection and Yes full ROM Respiratory: Normal respiratory effort and able to speak in complete sentences. Clear to auscultation bilaterally Cardiovascular: Regular rate and rhythm. Normal S1 and S2 GI: Normal to inspection. Soft to palpation and nontender : Testicles without masses/lesions and no hernias appreciated. Denies any urinary problems. Skin: No rashes or lesions noted Neuro: Patient oriented x3 Extremities: Normal to inspection Results Plan A PSA screening will be conducted as part of the preventative care measures. Laboratory tests will be ordered to further assess the patient's health status. Patient was informed and verbally consented to the use of an ambient scribe for clinic note documentation during this visit. Discussion Notes I discussed with the patient the importance of regular screenings, including the PSA test, as part of his health maintenance plan. We also reviewed his current health status and the plan to obtain laboratory tests to ensure comprehensive health monitoring. Patient Instructions - Schedule and complete the PSA screening as discussed. - Follow up with laboratory tests as ordered. [facility] Medical History Chronic nasal congestion Hypersomnia Snoring Anxiety Ventral hernia without obstruction or gangrene Cervical radiculopathy Surgical History History of ventral hernia repair (08/14/23) Hx of left knee surgery Hx of shoulder surgery Hx of fusion of cervical spine H/O colonoscopy History of lumbar fusion History of vasectomy Family History Father No problems noted. Mother Myocardial infarction CVD (cardiovascular disease) Sister Breast cancer Maternal Grandmother Myocardial infarction Maternal Grandfather No problems noted. Paternal Grandfather No problems noted. Paternal Grandmother No problems noted. Brother No problems noted. Son No problems noted. Son No problems noted. Daughter No problems noted. Daughter No problems noted. Sister No problems noted. Sister No problems noted. Sister No problems noted. Sister No problems noted. Sister No problems noted. Sister No problems noted. Sister No problems noted. 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 1. Little interest or pleasure in doing things: not at all 2. Feeling down, depressed, or hopeless: several days 3. Trouble falling or staying asleep, or sleeping too much: several days 4. Feeling tired or having little energy: not at all 5. Poor appetite or overeating: not at all 6. Feeling bad about yourself - or that you are a failure or have let yourself or your family down: not at all 7. Trouble concentrating on things, such as reading the newspaper or watching television: not at all 8. Moving or speaking so slowly that other people could have noticed. Or the opposite - being so fidgety or restless that you have been moving around a lot more than usual: not at all 9. Thoughts that you would be better off or of hurting yourself in some way: not at all Total score: 2 Depression Screening Interpretation: Negative Depression Screening Done: Yes 97875 - PHQ-9 Billing: Yes Source: Developed by Drs. Ned Ashraf, Renata Crhis, Itz Ovalle and colleagues, with an educational pilar from [employer] Thrive Questionnaire Date Thrive assessed: 12/23/24 I am a: Patient What is your living situation today?: I have a steady place to live Within the past 12 months, did the food you bought not last and you didn't have the money to get more?: I choose not to answer this question Within the past 12 months, did you worry whether your food would run out before you got money to buy more?: I choose not to answer this question Do you have trouble paying for medicines?: No Do you have trouble getting transportation to medical appointments?: No Do you have trouble paying your heating and electricity bill?: No Do you have trouble taking care of your child, family member or friend?: No Do you have trouble with day-to-day activities such as bathing, preparing meals, shopping, managing finances, etc.?: No Are you currently unemployed and looking for a job?: No Are you interested in more education?: No Please select the resources that you would like help with: None Currently or been in a relationship where the following occur: No concerns reported THRIVE Score: 0 AUDIT C Alcohol Use Questionnaire (AUDIT-C) 1. How often do you have a drink containing alcohol?: Never 3. How often do you have six or more drinks on one occasion?: Never Total Score: 0 PIETER-7 AMB Questionnaire PIETER-7 Date PIETER - 7 assessed: 12/30/24 Feeling nervous, anxious, or on edge: 1 = Several days Not being able to stop or control worryin = Not at all Worrying too much about different things: 0 = Not at all Trouble relaxin = Not at all Being so restless that it is hard to sit still: 0 = Not at all Becoming easily annoyed or irritable: 0 = Not at all Feeling afraid as if something awful might happen: 0 = Not at all Total PIETER-7 score (0-4 normal; 5-9 mild; 10-14 moderate; 15-21 severe): 1 Source: Developed by Drs. Ned Ashraf, Renata Chris, Itz Ovalle and colleagues, with an educational pilar from [employer] PIETER-7 Assessment Billing PIETER-7 Assessment Tool: PIETER-7 Assessment 37582 Physical exam (Primary Care) Vital Signs: Last Vital Signs Temp 98.0 F 12/30/24 11:08 Pulse 85 12/30/24 11:08 Resp 16 12/30/24 11:08 BP 122/78 12/30/24 11:08 Pulse Ox 98 12/30/24 11:08 Oxygen Delivery Method Room Air 12/30/24 11:08 BMI result Body Mass Index 29.0 Tobacco/Smoking Status: Tobacco use Status Tobacco use date assessed 12/30/24 12/30/24 11:12 Patient Tobacco Use Status Current someday Tobacco 12/30/24 11:12 Tobacco use type Cigarette 12/30/24 11:12 e-Cigarette/Vaping Use Never Used 12/30/24 11:12 PHQ-9: PHQ-9 Score PHQ-9: Total score 2 12/30/24 11:26 Depression Screening Interpretation: Negative Thrive Assessment: Date of Thrive Assessment Date Thrive assessed 12/23/24 12/30/24 11:12 Currently or been in a relationship where the following occur: No concerns reported Coding Level of Care Code Est Pt Prev Care 40-64y(97958) Diagnoses Physical exam Z00.00 Screening PSA (prostate specific antigen) Z12.5 Vitamin D deficiency E55.9 Additional Codes PIETER-7 Assessment Billing - PIETER-7 Assessment Tool: PIETER-7 Assessment 65208 ([id number]) PHQ-9 - 52392 - PHQ-9 Billing: Yes ([id number]) Assessment & Plan Assessment & Plan (1) Physical exam: Code(s): Z00.00 - Encounter for general adult medical examination without abnormal findings Category: Medical (2) Screening PSA (prostate specific antigen): Code(s): Z12.5 - Encounter for screening for malignant neoplasm of prostate Category: Medical (3) Vitamin D deficiency: Code(s): E55.9 - Vitamin D deficiency, unspecified Category: Medical Plan . Orders: Orders Comprehensive [place]. Panel Fast Today Z00.00 - Encounter for general adult medical examination without abnormal findings UA CC w/rflx Micro + Cult Today Z00.00 - Encounter for general adult medical examination without abnormal findings Lipid Panel Today Z00.00 - Encounter for general adult medical examination without abnormal findings Prostate Specific Antigen Scr Today Z12.5 - Encounter for screening for malignant neoplasm of prostate Vitamin D 25-OH Total Today E55.9 - Vitamin D deficiency, unspecified Complete Blood Count Auto Diff Today Z00.00 - Encounter for general adult medical examination without abnormal findings TSH reflex Free T4 Today Z00.00 - Encounter for general adult medical examination without abnormal findings Medications: Refilled albuterol sulfate 90 mcg/actuation (Ventolin HFA) 2 puffs inhalation Q6H PRN 8.5 grams 2RF shortness of breath or wheezing sildenafil 100 mg PO DAILY PRN 30 tabs 0RF Erectile Dysfunction
[2024-12-30 11:08] VITALS: BP 122/78; PULSE 85; RESP 16; TEMP 36.7; O2SAT 98; BMI 29.0
--- OUTSIDE RECORDS SUMMARY | 2024-12-30 12:17 | XMS_ITS | Clinical Summary ---
Author Organization [employer] Address [address] [place] [address] Care Team Providers Care Tip Mender Name Role Phone Unavailable Primary Care Provider [...] Panel 1965 SDOH Screening 1965 Sigmoidoscopy 1965 Disability Screening 1965 Alcohol/Substance Use Screening 1977 Hepatitis C Screening 10/19/1983 DTaP/Tdap/Td Vaccines (1 - Tdap) 1984 Hepatitis B Vaccines (1 of 3 - 19+ 3-dose series) 1984 Pneumococcal Vaccine: 50+ Ye ars (1 of 1 - PCV) 10/19/2015 Zoster Vaccines (1 of 2) 10/19/2015 Tobacco Screening 09/02/2023 09/01/2022 COVID-19 Vaccine (1 - 2023-2 5 season) 2024 Influenza Vaccine (#1) 2025 RSV Patients and Pa tients Aged 60 [...] patient's age to complete this topic Meningococcal B Vaccine Aged Out No l onger eligible based on patient's age to complete [...]
--- OUTSIDE RECORDS SUMMARY | 2024-12-30 12:18 | XMS_ITS | Patient Health Record ---
Author Organization [facility] Address [address] [place] [address] Care Team Providers Care Fish Tender Name Role Phone KIKI WALTER Primary Care Provider Ned Gupta [phone] Allergies Allergen (clinical drug ingredient) Drug/Non Drug [...] Problem Status W/U Status Risk Notes Problem [id number] Encounter for screening for malignant neoplasm of colon (Z12.11) Active confirmed Problem 36732968 Blood in stool (K92.1) Active confirmed Plan Of Treatment Future Test Test Name Order Date COLONOSCOPY 01/19/2017 Insurance Providers Payer Name Payer Address Payer Phone Subscriber Number Group Number Insured Name Patient Relationship to Insured Coverage Start Date Coverage End Date [facility] Plan [address] [place] [address] [id number] ARGENTINA TINOCO Self - patient is the insured Medical (General) History Medical History History ICD Code Asthma Denies DC,DM,CVA,Lung disease,renal dise ase Hyperlipidemia Arthritis Back pain Negative colonoscopy in 12/[address] Bill---just internal and external hemorrhoids Surgical History Surgery Date(Month/Year) lower back surgery fusion 2002 cervical fusion 2006 left knee arthroscopy 2007 shoulder arthroscopy 2008
== END 2024-12-30 11:33 | disposition home or self-care (01) ==
LOC: HO.HMCC 11:04
PROVIDERS: PCP Nurse Practitioner Family; Visit Provider Nurse Practitioner Family
DX: Z00.00 Encounter for general adult medical examination without abnormal findings (principal); Z12.5 Encounter for screening for malignant neoplasm of prostate; E55.9 Vitamin D deficiency, unspecified

== ENCOUNTER → 2024-12-30 11:03 | Outpatient (BNVA) | payer OTHER, SELFPAY | PROVIDERS: PCP Nurse Practitioner Family; Visit Provider Nurse Practitioner Family | DX: Z00.00 Encounter for general adult medical examination without abnormal findings (principal); E55.9 Vitamin D deficiency, unspecified | CPT/HCPCS: 96127; 99396 ==

== ENCOUNTER 2025-01-14 13:33 | Outpatient (AMB) | payer OTHER, SELFPAY ==
--- NOTE | 2025-01-14 13:45 | MHC.OFFVIS ---
Intake Visit Reasons: 6m follow up Intake Note: Patient is present for 6M F/U Urology Medication:SILDENAFIL Antibiotic Allergy:NONE Blood Thinner:NONE Car Pusher Required: No Allergies shellfish derived Allergy (Unknown, Verified 01/14/25 14:17) vomiting/hives Medication List - Last Reconciled 01/14/25 by ESTHER Crocker-BRIAN albuterol sulfate 90 mcg/actuation (Ventolin HFA) 2 puffs inhalation Q6H PRN epinephrine (EpiPen 2-Eric) 0.3 mg (0.3 mL) IM Q15M PRN MDD 2 doses sildenafil 100 mg PO DAILY PRN HPI Comments Details: Msiael is a 59 year old male patient of Dr. Butler. He presents to the office today for follow-up of his elevated PSA, mild hydronephrosis, and erectile dysfunction. In discussion with the patient today he reports to be doing and feeling well. He denies having had any bothersome urinary issues or concerns since his last office visit here. He reports having followed up with his PCP recently for his annual visit in his due for blood work. However, he discusses finding this difficult as he typically works 2nd to 3rd shift. Patient with a history of mild hydronephrosis however most recent renal ultrasound 11/05 noting bilateral kidneys with no hydronephrosis, and or renal calculi. 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 Labs are as follows: PSAs: 11/02 0.8, 01/03 1.0, 11/04 1.1, 11/05 3.9, 12/05 5.8, 01/05 1.9, 07/09 0.7 BUN: 11/30 20, 11/02 26, 08/03 21, 08/03 21, 01/03 23, 11/04 17, 11/04 19, 09/05 25, 11/05 13, 07/09 19 CREATININE:11/30 0.93, 11/02 1.12, 08/03 1.31, 01/03 1.08, 11/04 1.01, 09/05 1.02, 11/05 0.96, 07/09 0.82 He denies urinary urgency, urinary frequency, incontinence, nocturia, hematuria, dysuria, foul smelling urine, changes to urinary stream, flank pain, fever, and or chills. He is happy with his current voiding parameters. He reports he is not currently taking p.r.n. sildenafil as he is not sexually active however did report adequate erections when using it. He otherwise offers no other issues or concerns at this time. [facility] Medical History Chronic nasal congestion Hypersomnia Snoring Anxiety Ventral hernia without obstruction or gangrene Cervical radiculopathy Surgical History History of ventral hernia repair (08/14/23) Hx of left knee surgery Hx of shoulder surgery Hx of fusion of cervical spine H/O colonoscopy History of lumbar fusion History of vasectomy Family History Father No problems noted. Mother Myocardial infarction CVD (cardiovascular disease) Sister Breast cancer Maternal Grandmother Myocardial infarction Maternal Grandfather No problems noted. Paternal Grandfather No problems noted. Paternal Grandmother No problems noted. Brother No problems noted. Son No problems noted. Son No problems noted. Daughter No problems noted. Daughter No problems noted. Sister No problems noted. Sister No problems noted. Sister No problems noted. Sister No problems noted. Sister No problems noted. Sister No problems noted. Sister No problems noted. 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 Current occupational exposures/hazards: No Cognitive needs: No Hearing needs: No Vision needs: No Review of Systems Const Reports no additional complaints Eyes Reports no additional complaints ENT Reports no additional complaints Card Reports no additional complaints Resp Reports no additional complaints GI Reports no additional complaints Reports as per HPI Musc Reports no additional complaints Neuro Reports no additional complaints Psych Reports no additional complaints Endo Reports no additional complaints Physical Exam Const General: cooperative, healthy appearing, comfortable, no acute distress, well developed, alert and awake Orientation/consciousness: patient oriented x3 Limitations: no limitations HEENT Head: Yes normal to inspection, Yes normocephalic and Yes atraumatic Eyes General: appearance normal, both eyes and all related structures Neck Neck: Yes normal visual inspection and Yes trachea midline Chest Chest palpation & inspection: normal inspection of the chest Resp Effort & Inspection: normal respiratory effort and able to speak in complete sentences Cardio Rate: regular rate GI Inspection: Yes normal to inspection Palpation (GI): Soft to palpation General: Yes no CVA tenderness Back/Spine/Pelvis Back: no CVA tenderness Neuro General: patient oriented x3 Extrem General: Yes normal to inspection Psych Appearance: grossly normal and well kempt Mental Status: mental status grossly normal Speech and movement: Normal speech and movement present and Clear speech present Affect: normal affect Attitude: cooperative Thought process: Normal thought process present Thought content: Normal thought content present Insight: Fair insight present (Psych) Judgement: Fair judgement present (Psych) Results AMB Urinalysis, Automated UA Leukoctes 0 Jus/uL Last Edit by Kai Treviño CCM on 01/14/25 13:58 UA Nitrite Negative Last Edit by Kai rTeviño [facility] on 01/14/25 13:58 UA Urobilinogen 0.2 mg/dL Last Edit by Kai Treviño [facility] on 01/14/25 13:58 UA Protein 0 mg/dL Last Edit by Kai Treviño [facility] on 01/14/25 13:58 UA pH 6.0 Last Edit by Kai Treviño [facility] on 01/14/25 13:58 UA Blood 0 Jose F/uL Last Edit by Kai Treviño [facility] on 01/14/25 13:58 UA Specific Fisk 1.025 Last Edit by Kai Treviño [facility] on 01/14/25 13:58 UA Ketone Negative Last Edit by Kai Treviño [facility] on 01/14/25 13:58 UA Bilirubin 0 mg/dL Last Edit by Kai Treviño [facility] on 01/14/25 13:58 UA Glucose 0 mg/dL Last Edit by Kai Treviño [facility] on 01/14/25 13:58 Results Reviewed Results Reviewed: Laboratory Last Values Urine pH (Auto) 6.0 01/14/25 13:56 Specific Fisk (Auto) 1.025 01/14/25 13:56 Urine Protein (Auto) 0 mg/dL 01/14/25 13:56 Glucose (UA)(Auto) 0 mg/dL 01/14/25 13:56 Urine Ketones (Auto) Negative 01/14/25 13:56 Urine Blood (Auto) 0 Jose F/uL 01/14/25 13:56 Urine Nitrite (Auto) Negative 01/14/25 13:56 Urine Bilirubin (Auto) 0 mg/dL 01/14/25 13:56 Urine Urobilinogen (Auto) 0.2 mg/dL 01/14/25 13:56 Leukocyte Esterase (Auto) 0 Jus/uL 01/14/25 13:56 Assessment & Plan Assessment & Plan (1) Hydronephrosis: Code(s): N13.30 - Unspecified hydronephrosis Category: Medical (2) Elevated PSA: Code(s): R97.20 - Elevated prostate specific antigen [PSA] Category: Medical (3) Erectile dysfunction: Code(s): N52.9 - Male erectile dysfunction, unspecified Category: Medical Plan In office urinalysis results reviewed with the patient today; as noted above. Patient currently denies any bothersome urinary issues or concerns. He reports be happy with current voiding parameters. Will continue with surveillance monitoring. Discussed obtaining PSA, BUN, and creatinine however patient states he will have these performed with PCP therefore will await results as he is already ordered. We discussed lifestyle modifications to assist with urological conditions. All questions were answered. Follow-up in 6 months with labs; or sooner with any issues, concerns, and or questions. Orders: Orders AMB Urinalysis Automated Today Z13.9 - Encounter for screening, unspecified Patient Instructions: The patient had an opportunity to ask questions regarding the treatment plan. All questions were answered. Physical exam, labs, and imaging were discussed and reviewed in detail. As well as risks, benefits, and discussion of treatment choices. No major barriers to understanding were identified. The patient expressed understanding and agreement with the above treatment plan. The patient was made aware they should contact our office by phone for worsening of their current condition, the appearance of new symptoms, or with any questions or concerns. Compliance is encouraged with any medications and follow up testing that is ordered. It is a privilege to be allowed the opportunity to participate in? your urological care.? Again, if you have any questions or concerns If you have any questions or concerns please do not hesitate to contact me. The office is [phone]. This note is constructed using voice recognition software. While every effort has been made to ensure accuracy hydraulic specialist errors may have been included. Yours sincerely, ALEXANDRA Crocker Coding Level of Care Code Est Pt Level 3 (39194) Diagnoses Hydronephrosis N13.30 Elevated PSA R97.20 Erectile dysfunction N52.9
--- OUTSIDE RECORDS SUMMARY | 2025-01-14 14:51 | XMS_ITS | Encounter Summary ---
Author Organization [employer] Address [address] [place] [address] Care Team Providers Care Museum Service Scheduler Name Role Phone Unavailable Primary Care Provider Unavailabl e Encounter Details Date Type Department Care Team (Latest Contact Info) Description 08/08/2018 Abstract [facility] CONVERSIONS Dental, Provider, DDS Social History Tobacco [...]
--- OUTSIDE RECORDS SUMMARY | 2025-01-14 14:51 | XMS_ITS | Clinical Summary ---
Author Organization [employer] Address [address] [facility] [address] [place] [address] Care Team Providers Care Bilingual Office Assistant Name Role Phone Unavailable Primary Care Provider [...]
== END 2025-01-14 14:21 | disposition home or self-care (01) ==
LOC: HO.HUSH 13:34
PROVIDERS: PCP Nurse Practitioner Family; Visit Provider Nurse Practitioner Family
DX: N13.30 Unspecified hydronephrosis (principal); R97.20 Elevated prostate specific antigen [PSA]; N52.9 Male erectile dysfunction, unspecified; Z13.9 Encounter for screening, unspecified
CPT/HCPCS: 99213

== ENCOUNTER → 2025-01-14 13:33 | Outpatient (BNVA) | payer OTHER, SELFPAY | PROVIDERS: PCP Nurse Practitioner Family; Visit Provider Nurse Practitioner Family | DX: R97.20 Elevated prostate specific antigen [PSA] (principal); N13.30 Unspecified hydronephrosis; N52.9 Male erectile dysfunction, unspecified | CPT/HCPCS: 81003; 99212 ==

== ENCOUNTER 2025-03-05 14:50 | Outpatient (AMB) | payer OTHER, SELFPAY ==
[2025-03-05 14:56] VITALS: BP 130/80; PULSE 82; O2SAT 95; BMI 28.3
--- NOTE | 2025-03-05 14:56 | A.OFFVIS_ITS ---
Vital Signs 03/05/25 14:56 Height 5 ft 5 in Weight 170 lb BMI 28.3 BP 130/80 Blood Pressure Location Rt brachial Position Sitting Pulse 82 Pulse Source Pulse Oximeter Pulse Oximetry (%) 95 Oxygen Delivery Method Room Air Intake Visit Reasons: 6 month Follow Up Intake Note: Patient presents follow up JENNIFER. Compliance in chart. Insurance Billing Clerk Required: No Accompanied by: Self / Same As Patient Allergies shellfish derived Allergy (Unknown, Verified 03/05/25 14:57) vomiting/hives Medication List - Last Reconciled 03/05/25 by ESTHER Foster albuterol sulfate 90 mcg/actuation (Ventolin HFA) 2 puffs inhalation Q6H PRN epinephrine (EpiPen 2-Eric) 0.3 mg (0.3 mL) IM Q15M PRN MDD 2 doses sildenafil 100 mg PO DAILY PRN HPI Comments Details: The patient is a 59-year-old male presenting with Mild Obstructive Sleep Apnea. Obstructive Sleep Apnea: - The patient has returned his CPAP equipment to the respiratory company. - Describes a regular, consistent sleep pattern. - Patient works 3-11 pm shifts and maintains an unconventional sleep schedule, going to bed around 3-4 AM. - Reports waking up refreshed, with only occasional tiredness, mostly after eating lunch. - Practices regular physical activity by attending the gym Monday through . - Denies daytime sleepiness or fatigue affecting work or gym activities. Seasonal Allergic Rhinitis and Food Allergies: - Reports exacerbations due to weather changes and seasonal allergy symptoms. - He has not has not had the allergy consult yet- the office he was referred was out of-network. - Reports allergy to walnuts characterized by itching and swelling throat on excessive consumption. - Acknowledges carrying an EpiPen for severe allergic reactions. 09/03/2024, HPI: 01/23/2024, HST revealed very mild JENNIFER w/ AHI 7/hr and O2 maricarmen 85% w/ avergae SpO2 93% and SpO2 < 88% x's 1.2 min, and mild snoring for 7% of study time. Since the last visit, patient tried again to use CPAP. He states it causes asthma and respiratory symptoms. States this interferes with his ability to exercise and go to the gym. Thus, he stopped using it. He denies seasonal or environmental allergies. 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 He endorses chronic nasal congestion, frequently has to blow his nose. Does try to use breathe right strips at night and saline spray prior to bedtime, which helps him breathe through his nose more at night rather than his mouth. When he is breathing through his mouth more, he has nocturnal dry mouth. [facility] Medical History Chronic nasal congestion Hypersomnia Snoring Anxiety Ventral hernia without obstruction or gangrene Cervical radiculopathy Surgical History History of ventral hernia repair (08/14/23) Hx of left knee surgery Hx of shoulder surgery Hx of fusion of cervical spine H/O colonoscopy History of lumbar fusion History of vasectomy Family History Father No problems noted. Mother Myocardial infarction CVD (cardiovascular disease) Sister Breast cancer Maternal Grandmother Myocardial infarction Maternal Grandfather No problems noted. Paternal Grandfather No problems noted. Paternal Grandmother No problems noted. Brother No problems noted. Son No problems noted. Son No problems noted. Daughter No problems noted. Daughter No problems noted. Sister No problems noted. Sister No problems noted. Sister No problems noted. Sister No problems noted. Sister No problems noted. Sister No problems noted. Sister No problems noted. 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 Current occupational exposures/hazards: No Cognitive needs: No Hearing needs: No Vision needs: No Physical Exam Vital Signs: Last Vital Signs Pulse 82 03/05/25 14:56 BP 130/80 03/05/25 14:56 Pulse Ox 95 03/05/25 14:56 Oxygen Delivery Method Room Air 03/05/25 14:56 BMI result Body Mass Index 28.3 Const General: no acute distress Orientation/consciousness: patient oriented x3 HEENT Other: Mild nasal congestion Resp Effort & Inspection: normal respiratory effort and able to speak in complete sentences Neuro General: patient oriented x3 Psych Mental Status: mental status grossly normal Speech and movement: Clear speech present Attitude: cooperative Assessment & Plan Assessment & Plan (1) Mild obstructive sleep apnea: Comment: 01/23/24, HST: AHI 7/hr and O2 maricarmen 85% w/ avergae SpO2 93% and SpO2 < 88% x's 1.2 min Code(s): G47.33 - Obstructive sleep apnea (adult) (pediatric) Category: Medical (2) Snoring: Code(s): R06.83 - Snoring Category: Medical (3) Nasal congestion: Code(s): R09.81 - Nasal congestion Category: Medical Plan Unfortunately, patient has not tolerated PAP therapy. As obstructive sleep apnea is mild inpatient is not currently overweight, he would not be a candidate for Zepbound therapy or inspire implantation. Patient has returned his CPAP machine. He may continue to use saline nasal sprays and breathe right strips at night as needed We will follow-up on previous request for allergy consult, to further evaluate patient's chronic nasal congestion, as well as his reports of asthma and food allergies. In the meantime, continue to carry epi-pen with him at all times, and inform any restaurant of his food allergy. Will follow-up upon review of above and patient to follow-up in clinic in 6 months or sooner prn. Coding Level of Care Code Est Pt Level 3 (17267) Diagnoses Mild obstructive sleep apnea G47.33 Snoring R06.83 Nasal congestion R09.81
--- OUTSIDE RECORDS SUMMARY | 2025-03-05 21:05 | XMS_ITS | Encounter Summary ---
Author Organization [employer] Address [address] [facility] [address] [place] [address] Care Team Providers Care Bankruptcy Processor Name Role Phone Unavailable Primary Care Provider Unavailabl e Encounter Details Date Type Department Care Team (Latest Contact Info) Description 08/08/2018 Abstract [facility] CONVERSIONS Dental, Provider, DDS Social History [...]
--- OUTSIDE RECORDS SUMMARY | 2025-03-05 21:05 | XMS_ITS | Clinical Summary ---
Author Organization [employer] Address [address] [facility] [address] [place] [address] Care Team Providers Care Bench Tool Maker Name Role Phone Unavailable Primary Care Provider Unavailabl e Allergies Active Allergy Reactions Criticality Noted Date Comments Iodine 08/11/2022 Shellfish Protein-Containing Drug Products 08/11/2022 Medications No known medications Social History Tobacco [...] COVID-19 Vaccine (1 - 2023-2 5 season) 2025 Influenza Vaccine (#1) 2025 RSV Patients and [...]
--- OUTSIDE RECORDS SUMMARY | 2025-03-05 21:06 | XMS_ITS | Patient Health Record ---
Author Organization [facility] Address [address] [place] [address] Care Team Providers Care Line Installation Supervisor Name Role Phone KIKI WALTER Primary Care Provider Ned Gupta [phone] Allergies Allergen (clinical drug ingredient) Drug/Non Drug Allergy documented on EMR Reaction Allergy Type Onset Date Status Shellfish (FN) shell fish (uncoded) Unknown Allergy Active Reason For Referral No Information Medications Medication SIG (Take, Route, Frequency, Duration) Notes Start Date End Date Status traMADol HCl 50 MG (Schedule IV Drug) t delroy 1 tablet by mouth three times a day if needed Oral; Duration: 30 Active Atorvastatin Calcium 10 MG TAKE ONE TABL ET EVERY DAY Oral; Duration: 30 Active Meclizine HCl 25 MG TAKE ONE TABLET EVER Y DAY NEEDED Oral; Duration: 20 Active ProAir HFA 108 (90 Base) MCG/ACT INHALE TWO PUFFS THREE TIMES DAILY NEEDED Inhalation; Duration: 33 Active Cyclobenzaprine HCl 10 MG TAKE ONE TABLE T BY MOUTH AT BEDTIME NEEDED Oral; Duration: 30 Active Vitamin D Active Nortriptyline HCl 50 MG Orally Active MiraLax (colon prep) 8.3 ounce ((238) grams mixed with Gatorade or Crystal Light orally begin at 5:00 p.m. the day before the procedure; Duration: 1 day 01/22/2017 Active Dulcolax (colon prep) 5 MG take at 3:00 p.m and 7:00p.m. Orally two tablets twice a day for one day; Duration: 1 day 01/22/2017 Active Social History Tobacco [...] Problem Status W/U Status Risk Notes Problem Screening for malignant neoplasm of colon (128017500) Encounter for screening for malignant neoplasm of colon (Z12.11) Active confirmed Problem Blood in stool (097962296) Blood in stool (K92.1) Active confirmed Plan Of Treatment Future Test Test Name Order Date COLONOSCOPY 01/19/2017 Insurance Providers Payer Name Payer Address Payer Phone Subscriber Number Group Number Insured Name Patient Relationship to Insured Coverage Start Date Coverage End Date [facility] Plan [address] [place] [address] [id number] [place] Self - patient is the insured Medical (General) History Medical History History ICD Code Asthma Denies FL,DM,CVA,Lung disease,renal dise ase Hyperlipidemia Arthritis Back pain Negative colonoscopy in 12/[address] Bill---just internal and external hemorrhoids Surgical History Surgery Date(Month/Year) lower back surgery fusion 2002 cervical fusion 2005 left knee arthroscopy 2007 shoulder arthroscopy 2008
== END 2025-03-05 15:38 | disposition home or self-care (01) ==
LOC: HO.HSMS 14:51
PROVIDERS: PCP Nurse Practitioner Family; Visit Provider Nurse Practitioner Family
DX: G47.33 Obstructive sleep apnea (adult) (pediatric) (principal); R06.83 Snoring; R09.81 Nasal congestion
CPT/HCPCS: 99213

== ENCOUNTER → 2025-03-05 14:50 | Outpatient (BNVA) | payer OTHER, SELFPAY | PROVIDERS: PCP Nurse Practitioner Family; Visit Provider Nurse Practitioner Family | DX: G47.33 Obstructive sleep apnea (adult) (pediatric) (principal); R09.81 Nasal congestion; R06.83 Snoring; Z91.013 Allergy to seafood; G47.26 Circadian rhythm sleep disorder, shift work type | CPT/HCPCS: 99212 ==